=== PATIENT | male | born 1940 | race Caucasian/White ===

== ENCOUNTER → 2016-10-22 | Outpatient (CLI) | payer OTHER ==
[~2016-10-22] MED LIST: ATOR-24 PO; BIOT1CAP3 PO; CARV6.252 PO; CLOP1TAB15 PO; DUTA0.5C PO; LISI2.5T5 PO; NTRGSL/4 UT
[2016-10-22 14:59] LABS: THYROID STIMULATING HORMONE 1.01 uIu/ml (0.300-4.500)
== END | disposition home or self-care (01) ==
LOC: C.LAB1850 13:29
PROVIDERS: ATTEND Physician Assistant Medical
DX: I25.5 Ischemic cardiomyopathy (principal)

== ENCOUNTER → 2017-04-02 | Outpatient (CLI) | payer OTHER ==
[2017-04-02 12:15] LABS: BASO % 0.4 %; BASO ABS # 0.02 K/uL (0-0.2); COMPLETE YES; EOS % 3.2 %; HEMATOCRIT 40.3 % (42-52); LYMPH % 43.4 %; LYMPH ABS # 2.16 K/uL (1.2-3.4); MEAN CELL VOLUME 92.4 fL (80-100); MEAN CORPUSCULAR HGB CONC 33.5 g/dl (32-36); MEAN PLATELET VOLUME 9.9 fL (7.4-10.4); MONO % 13.1 %; NEUT % 39.9 %; PLATELET COUNT 104 K/uL (130-400); RED BLOOD COUNT 4.36 M/uL (4.7-6.1); WHITE BLOOD COUNT 4.98 K/uL (4.8-10.8)
[2017-04-02 12:40] LABS: ALT/SGPT 11 U/L (12-78); AST/SGOT 25 U/L (15-37); BLOOD UREA NITROGEN 16 mg/dl (7-18); BUN/CREATININE RATIO 14.4 (10-20); CALCIUM 8.8 mg/dl (8.5-10.1); CARBON DIOXIDE 28 mmol/L (21-32); CHLORIDE 106 mmol/L (98-107); CHOLESTEROL 139 mg/dl (0-200); GLUCOSE 91 mg/dl (70-99); POTASSIUM 4.1 mmol/L (3.5-5.1); SODIUM 139 mmol/L (136-145); TRIGLYCERIDES 91 mg/dl (0-150); VERY LOW DENSITY LIPOPROT CALC 18 mg/dl
[2017-04-02 12:51] LABS: ALB/GLOB RATIO 1.1 (0.9-2); ALKALINE PHOSPHATASE 56 U/L (45-117); HDL CHOLESTEROL 71 mg/dl; LDL CHOLESTEROL CALCULATED 50 mg/dl
== END | disposition home or self-care (01) ==
LOC: C.LABPVFM 07:40
PROVIDERS: ATTEND Family Medicine
DX: E78.5 Hyperlipidemia, unspecified (principal); I49.9 Cardiac arrhythmia, unspecified; C91.10 Chronic lymphocytic leukemia of B-cell type not having achieved remission

== ENCOUNTER → 2017-09-14 | Outpatient (CLI) | payer OTHER ==
[2017-09-14 12:21] LABS: BASO % 0.4 %; BASO ABS # 0.02 K/uL (0-0.2); EOS % 3.3 %; EOS ABS # 0.16 K/uL (0-0.5); HEMATOCRIT 38.6 % (42-52); HEMOGLOBIN 13.2 g/dL (14.0-18.0); IG# 0.01 K/uL (0.00-0.02); LYMPH % 49.7 %; LYMPH ABS # 2.43 K/uL (1.2-3.4); MEAN CORPUSCULAR HEMOGLOBIN 31.1 pg (25-34); MEAN CORPUSCULAR HGB CONC 34.2 g/dl (32-36); MEAN PLATELET VOLUME 10.1 fL (7.4-10.4); MONO % 9.6 %; MONO ABS # 0.47 K/uL (0.11-0.59); NEUT % 36.8 %; PLATELET COUNT 108 K/uL (130-400); RED CELL DISTRIBUTION WIDTH CV 14.3 % (11.5-14.5); RED CELL DISTRIBUTION WIDTH SD 47.9 fL (36.4-46.3); WHITE BLOOD COUNT 4.89 K/uL (4.8-10.8)
[2017-09-14 13:06] LABS: ALBUMIN 3.5 gm/dl (3.4-5.0); ALT/SGPT 11 U/L (12-78); BLOOD UREA NITROGEN 17 mg/dl (7-18); CALCIUM 8.6 mg/dl (8.5-10.1); CARBON DIOXIDE 31 mmol/L (21-32); CREATININE 1.09 mg/dl (0.60-1.40); GLUCOSE 95 mg/dl (70-99); POTASSIUM 4.3 mmol/L (3.5-5.1); SODIUM 139 mmol/L (136-145)
[2017-09-14 13:12] LABS: ALKALINE PHOSPHATASE 59 U/L (45-117); AST/SGOT 21 U/L (15-37); CHOLESTEROL 121 mg/dl (0-200); LDL CHOLESTEROL CALCULATED 41 mg/dl; TOTAL PROTEIN 6.8 gm/dl (6.4-8.2)
== END | disposition home or self-care (01) ==
LOC: C.LABPVFM 07:48
PROVIDERS: ATTEND Family Medicine
DX: E78.5 Hyperlipidemia, unspecified (principal); Z95.810 Presence of automatic (implantable) cardiac defibrillator; I25.5 Ischemic cardiomyopathy; C91.10 Chronic lymphocytic leukemia of B-cell type not having achieved remission

== ENCOUNTER → 2018-03-09 | Outpatient (CLI) | payer OTHER ==
[~2018-03-09] MED LIST changes: +LISI-1116 PO; -LISI2.5T5 PO
[2018-03-09 12:54] LABS: BASO % 0.5 %; BASO ABS # 0.02 K/uL (0-0.2); EOS % 5.1 %; EOS ABS # 0.19 K/uL (0-0.5); HEMATOCRIT 39.3 % (42-52); HEMOGLOBIN 13.1 g/dL (14.0-18.0); IG# 0.01 K/uL (0.00-0.02); LYMPH % 42.7 %; MEAN CELL VOLUME 92.9 fL (80-100); MEAN CORPUSCULAR HGB CONC 33.3 g/dl (32-36); MONO % 10.9 %; MONO ABS # 0.41 K/uL (0.11-0.59); NEUT % 40.5 %; NEUT ABS # 1.52 K/uL (1.4-6.5); PLATELET COUNT 107 K/uL (130-400); RED CELL DISTRIBUTION WIDTH CV 14.3 % (11.5-14.5); RED CELL DISTRIBUTION WIDTH SD 48.5 fL (36.4-46.3); WHITE BLOOD COUNT 3.75 K/uL (4.8-10.8)
== END | disposition home or self-care (01) ==
LOC: C.LABPVFM 08:44
PROVIDERS: ATTEND Family Medicine
DX: E78.5 Hyperlipidemia, unspecified (principal); I47.2 Ventricular tachycardia; C91.90 Lymphoid leukemia, unspecified not having achieved remission

== ENCOUNTER 2023-10-28 12:13 | Observation (INO) ==
--- NOTE | 2023-10-28 13:24 | Emergency Department Note ---
Impression & Plan Exertional chest pain, Cardiomyopathy, ischemic, Coronavirus infection, unspecified ED Provider Note NAME: RENETTA Gilmore WINTER AGE: 83 SEX: M : 1940 ARRIVES VIA: Walk-In INFORMANT: Patient ED PROVIDER(S): Bear Herron MD CHIEF COMPLAINT: Chest pain PLAN: Disposition: Admit MEDICAL DECISION MAKING: The patient is a pleasant 83-year-old gentleman with a past medical history of CAD with history of PCI, ischemic cardiomyopathy status post AICD, CLL, paroxysmal atrial fibrillation on Eliquis who presents to the emergency department via walk-in accompanied by his daughter for evaluation of exertional chest pressure and shortness of breath which she reports has been ongoing for over the past month. The patient was seen by his primary care doctor today for evaluation of cough congestion and some mild shortness of breath. He had an EKG performed which demonstrated atrial paced rhythm and there was concern for ST depressions laterally in the setting of his report of exertional chest pressure though he "has no pain". 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 He denies any chest pressure or pain at this time. He reports he did have slight increase in weight of 2 pounds several days ago and did take a dose of his Lasix which he is prescribed to use as needed based on weight gain. Otherwise he reports his weight has been fairly stable. He denies palpitations, racing heart, or ICD shocks. On evaluation patient is no acute distress, afebrile with stable vital signs. He appears euvolemic. EKG demonstrates atrial paced rhythm without overt acute ischemia. Chest x-ray demonstrates mild interstitial pulmonary edema with trace bilateral pleural effusions. There is small patchy bibasilar densities that are likely atelectasis. WBC 4.7K, similar to prior. H/H similar to prior. Platelets 76 K, similar to prior in the setting of history of CLL. Chemistry without metabolic acidosis. LFTs unremarkable. Positive troponin 21.8, marginally above upper limit of normal. Procalcitonin ordered to further characterize x-ray findings and is pending. Respiratory viral panel shows BioFire was positive for coronavirus NL 63. Patient was given full dose aspirin though denies chest pain at this time. The patient and his daughter agree with plan for admission for further assessment given his exertional chest pain and cardiac history. Case was discussed with Dr. Hastings [facility] hospitalist, who will evaluate the patient for admission. Further management per admitting team. Triage Nursing notes reviewed and agree them. Prior/external medical records reviewed Vital Signs: reviewed Differential diagnosis: Cardiac ischemia, aortic dissection, pulmonary embolism, pneumothorax, pneumonia, pericarditis, myocarditis, esophageal rupture, GERD, cholecystitis, pancreatitis, musculoskeletal, as well as other pathologies. ER treatment provided: See below. Diagnostics interpreted by me: ECG: Atrial paced rhythm, 74 bpm, nonspecific anterior ventricular conduction block, LVH, no overt ST elevation or depression, QTc 512, QRS 150 Cardiac Monitoring: An order for continuous cardiac monitoring was placed and demonstrated Atrial paced rhythm, 74 bpm, no ectopy. Laboratory studies: See below Imaging studies: See below Consultation(s): Case was discussed with Dr. Hastings, [facility] hospitalist, who will evaluate the patient for admission. HPI: The patient is a pleasant 83-year-old gentleman with a past medical history of CAD with history of PCI, ischemic cardiomyopathy status post AICD, CLL, paroxysmal atrial fibrillation on Eliquis who presents to the emergency department via walk-in accompanied by his daughter for evaluation of exertional chest pressure and shortness of breath which she reports has been ongoing for over the past month. The patient was seen by his primary care doctor today for evaluation of cough congestion and some mild shortness of breath. He had an EKG performed which demonstrated atrial paced rhythm and there was concern for ST depressions laterally in the setting of his report of exertional chest pressure though he "has no pain". 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 He denies any chest pressure or pain at this time. He reports he did have slight increase in weight of 2 pounds several days ago and did take a dose of his Lasix which he is prescribed to use as needed based on weight gain. Otherwise he reports his weight has been fairly stable. He denies palpitations, racing heart, or ICD shocks. ROS: See above HPI for pertinent positives & negatives. A total of 10 systems reviewed and were otherwise negative. VITALS:See Below PHYSICAL EXAMINATION: GENERAL: Awake, alert, well-appearing, in no distress HENT: Normocephalic, atraumatic. Oropharynx unremarkable. EYES: Normal conjunctiva. Sclera non-icteric. NECK: Supple. No nuchal rigidity. FROM. No JVD. RESPIRATORY: Clear to auscultation. CARDIAC: Regular rate, normal rhythm. Extremities warm and well perfused. Pulses equal. ABDOMEN: Soft, non-distended. No tenderness to palpation. No rebound or guarding. No masses. MUSCULOSKELETAL: Chest examination reveals no tenderness. The back is symmetrical on inspection without obvious abnormality. There is no CVA tenderness to palpation. No joint edema. LOWER EXTREMITIES: Calves are equal size bilaterally and non-tender. No edema. No discoloration. NEURO: Normal sensorium. No sensory or motor deficits noted. SKIN: No rash or jaundice noted. Bear Herron MD Past Med/Surg History Medical History Pleural effusion Multiple fractures of ribs of both sides Thoracic compression fracture Hernia Acute chest pain Near syncope Surgical History H/O rotator cuff surgery Previous back surgery Family History Brother Myocardial infarction Denies family history of Ovarian cancer Prostate cancer Breast cancer Colorectal cancer Social History Smoking Status: Never smoker Second Hand Exposure: No; Do You Dip or Chew Tobacco: No; Hx Alcohol Use: Yes Alcohol type: hard liquor Alcohol Intake Frequency: Monthly or Less Hx Substance Use: No Preferred Language: Armenian Communication Ability: Effective Visual Impairment: Limited Hearing Ability: Use of Hearing Aid Data Warehousing Specialist Required: No Beliefs That Will Affect Care: None marital status: / Current Living Situation: Alone current occupational status: retired How many Children do You have: 2 Feels Safe at Home: Yes Safety Concerns: Feels Safe At This Time Childhood Exposure to Second-Hand Smoke: Yes Diet: regular caffeine: Yes during the past year weight has: remained stable Dental Care, Regularly: Yes Physical Activity Frequency: Daily Seatbelt Use: sometimes Sunscreen Use: No Assistive Devices: Denture - Upper, Denture - Lower, Glasses and Hearing Aid - Bilateral Allergies Allergies Allergy/AdvReac Type Severity Reaction Status Date / Time lisinopril AdvReac Intermediate HYPOTENSION Verified 10/28/23 14:25 metoprolol AdvReac Intermediate HYPOTENSION Verified 10/28/23 14:25 Home Meds Home Medications Medication Instructions Recorded Confirmed biotin 5 mg tablet 5 mg PO DAILY 07/19/19 10/28/23 cholecalciferol (vitamin D3) 1,250 50,000 unit PO WK 10/28/23 10/28/23 mcg (50,000 unit) capsule Previous Rx's Medication Instructions Recorded nitroglycerin 0.4 mg sublingual 0.4 mg sublingual Q5M PRN Chest 09/04/20 tablet Pain #20 tabs potassium chloride 20 mEq 20 meq PO DAILY Take with 11/17/22 tablet,extended release furosemide #90 tabs furosemide 40 mg tablet 40 mg PO DAILY weight gain or 11/19/22 swelling #90 tabs metoprolol succinate 25 mg 25 mg PO DAILY #90 tabs 02/23/23 tablet,extended release 24 hr ferrous sulfate 325 mg (65 mg 325 mg PO DAILY #30 tabs 06/16/23 iron) tablet tamsulosin 0.4 mg capsule 0.4 mg PO HS #90 caps 07/21/23 atorvastatin 40 mg tablet 40 mg PO QPM #90 tabs 08/20/23 amiodarone 200 mg tablet 200 mg PO DAILY #90 tabs 09/29/23 apixaban 5 mg tablet (Eliquis) 5 mg PO Q12H #180 tabs 10/28/23 clopidogrel 75 mg tablet 75 mg PO QAM #90 tabs 10/28/23 Results & Data (ED) Vital Signs Vital Signs - 24 hr 10/28/23 12:44 10/28/23 14:00 10/28/23 14:00 Temperature 36.9 C Temperature Source Temporal Artery Scan Pulse Rate 73 Pulse Rate [Apical] 63 Pulse Rhythm [Apical] Pulse Strength [Apical] Respiratory Rate 18 21 Respiratory Effort / Characteristics Non-Labored Spontaneous Respiratory Depth Normal Respiratory Pattern Regular Blood Pressure 110/72 Blood Pressure [Left Arm] 126/92 Blood Pressure Mean 84 Blood Pressure Mean [Left Arm] 103 Blood Pressure Position Sitting Blood Pressure Position [Left Arm] Pulse Oximetry 95 96 Oxygen Delivery Method Room Air Room Air Room Air Sepsis Recent Fever Within 48 Hours No Sepsis New/Unexplained Change in Mental Status N/A Sepsis Action Taken by Nursing No Action Required 10/28/23 14:33 10/28/23 14:48 10/28/23 15:00 Temperature 36.5 C Temperature Source Oral Pulse Rate 61 Pulse Rate [Apical] 67 Pulse Rhythm [Apical] Regular Pulse Strength [Apical] Normal Respiratory Rate 18 Respiratory Effort / Characteristics Non-Labored Spontaneous Respiratory Depth Normal Respiratory Pattern Regular Blood Pressure Blood Pressure [Left Arm] 121/81 Blood Pressure Mean Blood Pressure Mean [Left Arm] 94 Blood Pressure Position Blood Pressure Position [Left Arm] Sitting Pulse Oximetry 96 96 Oxygen Delivery Method Room Air Room Air Sepsis Recent Fever Within 48 Hours Sepsis New/Unexplained Change in Mental Status Sepsis Action Taken by Nursing 10/28/23 15:00 Temperature Temperature Source Pulse Rate Pulse Rate [Apical] 66 Pulse Rhythm [Apical] Pulse Strength [Apical] Respiratory Rate 19 Respiratory Effort / Characteristics Non-Labored Spontaneous Respiratory Depth Normal Respiratory Pattern Regular Blood Pressure Blood Pressure [Left Arm] 120/84 Blood Pressure Mean Blood Pressure Mean [Left Arm] 96 Blood Pressure Position Blood Pressure Position [Left Arm] Semi-fowlers Pulse Oximetry 96 Oxygen Delivery Method Room Air Sepsis Recent Fever Within 48 Hours Sepsis New/Unexplained Change in Mental Status Sepsis Action Taken by Nursing Laboratory Data Attestation: I reviewed the patient's lab results. 10/28/23 13:00 10/28/23 13:00 Lab Results 10/28/23 10/28/23 10/28/23 Range/Units 13:00 14:03 15:34 WBC 4.77 L (4.8-10.8) K/ul RBC 4.10 L (4.70-6.10) M/uL Hgb 12.4 L (14.0-18.0) g/dl Hct 38.3 L (42.0-52.0) % MCV 93.4 (80.0-100.0) fL MCH 30.2 (25.0-34.0) pg MCHC 32.4 (32.0-36.0) g/dL RDW Std Deviation 58.3 H (36.4-46.3) fL RDW Coeff of Arie 16.7 H (11.5-14.5) % Plt Count 76 L (130-400) K/uL MPV 10.4 (9.4-12.4) fL Immature Gran % (Auto) 0.2 % Neut % (Auto) 50.4 % Lymph % (Auto) 32.9 % [place] % (Auto) 15.1 % Eos % (Auto) 1.0 % Baso % (Auto) 0.4 % Neut # (Auto) 2.40 (1.40-6.50) K/uL Lymph # (Auto) 1.57 (1.20-3.40) K/uL [place] # (Auto) 0.72 H (0.11-0.59) K/uL Eos # (Auto) 0.05 (0.00-0.50) K/uL Baso # (Auto) 0.02 (0.00-0.20) K/uL Immature Gran # (Auto) 0.01 (0.01-0.20) K/uL PT 13.0 H (9.0-12.0) Seconds INR 1.2 H (0.9-1.1) APTT 33 H (21-31) Seconds PTT Ratio 1.2 Sodium 136 (136-145) mmol/L Potassium 4.3 (3.5-5.1) mmol/L Chloride 103 (98-107) mmol/L Carbon Dioxide 27 (21-32) mmol/L Anion Gap 6 (3-11) BUN 29 H (6-23) mg/dl Creatinine 1.04 (0.6-1.4) mg/dl Est Cr Clr Drug Dosing 47.2 ml/min Est GFR ( Amer) 75.5 ml/min Est GFR (Non-Af Amer) 65.2 ml/min BUN/Creatinine Ratio 27.9 H (10-20) Glucose 97 (70-99(Fasting)) mg/dl Calcium 9.1 (8.6-10.3) mg/dl Phosphorus 3.4 (2.5-4.9) mg/dl Magnesium 2.1 (1.7-2.4) mg/dl Total Bilirubin 1.5 H (0.2-1.0) mg/dl AST 38 (13-39) U/L ALT 8 (7-52) U/L Alkaline Phosphatase 56 (34-104) U/L Troponin I High Sens 21.8 H 18.2 (0-20) pg/ml Total Protein 7.1 (6.0-8.3) gm/dl Albumin 4.1 (3.4-5.0) gm/dl Globulin 3.0 (2.5-4.0) gm/dl Albumin/Globulin Ratio 1.4 (0.9-2) Procalcitonin < 0.02 (0-0.5) ng/ml TSH 3.339 (0.300-4.500) uIu/ml Adenovirus (PCR) Not Detected (NotDetected) B. pertussis DNA (PCR) Not Detected (NotDetected) B.parapertussis DNA PCR Not Detected (NotDetected) C. pneumoniae DNA (PCR) Not Detected (NotDetected) Coronavirus OC43 (PCR) Not Detected (NotDetected) Coronavirus HKU1 (PCR) Not Detected (NotDetected) Coronavirus 229E (PCR) Not Detected (NotDetected) SARS-CoV-2 (PCR) Not Detected (NotDetected) Coronavirus NL63 (PCR) DETECTED A (NotDetected) Human Metapneumovir PCR Not Detected (NotDetected) Influenza Type A (PCR) Not Detected (NotDetected) Influenza Type B (PCR) Not Detected (NotDetected) M. pneumoniae (PCR) Not Detected (NotDetected) Parainfluenza 1 (PCR) Not Detected (NotDetected) Parainfluenza 2 (PCR) Not Detected (NotDetected) Parainfluenza 3 (PCR) Not Detected (NotDetected) Parainfluenza 4 (PCR) Not Detected (NotDetected) RSV (PCR) Not Detected (NotDetected) Entero/Rhino (PCR) Not Detected (NotDetected) Administered Medications Apixaban (Apixaban 5 Mg Tablet) 5 mg PO BID KODY Stop: 11/27/23 20:59 Last Admin: 10/28/23 20:34 Dose: 5 mg Documented By: BETHANY Atorvastatin Calcium (Atorvastatin 40 Mg Tab) 40 mg PO QPM KODY Stop: 11/27/23 20:59 Last Admin: 10/28/23 20:34 Dose: 40 mg Documented By: BETHANY Tamsulosin HCl (Tamsulosin Hcl 0.4 Mg Cap) 0.4 mg PO HS KODY Stop: 11/27/23 20:59 Last Admin: 10/28/23 20:34 Dose: 0.4 mg Documented By: BETHANY Discontinued Medications Aspirin (Aspirin Chew 324 Mg) 324 mg PO NOW STA Stop: 10/28/23 14:48 Last Admin: 10/28/23 15:11 Dose: 324 mg Documented By: CELESTE Furosemide (Furosemide 40 Mg/4 Ml Vial) 40 mg IV ONE ONE Stop: 10/28/23 19:20 Last Admin: 10/28/23 20:35 Dose: 40 mg Documented By: AKCatarino Imaging Data Radiologist's Impression: Chest X-Ray 10/28/23 12:45 XR chest 1V portable HISTORY: Chest pain, nonspecific COMPARISON: Chest 01/22/2022. FINDINGS: No pneumothorax. Trace bilateral pleural effusions. The heart is enlarged. There is a left-sided pacemaker/defibrillator again noted. There is perihilar interstitial/vascular thickening consistent with mild pulmonary edema. There are patchy bibasilar densities. No acute fractures. IMPRESSION: 1. Cardiomegaly with mild interstitial pulmonary edema and trace bilateral pleural effusions. 2. Small patchy bibasilar densities are nonspecific and could represent atelectasis or a low-grade pneumonia ACT 112: Negative or not required by law. Electronically signed by: Steven Bradford M.D. 10/28/2023 2:08 PM Discharge Plan Visit Data Chief Complaint: Cardiac Assessment Stated Complaint: REF BY DOC ED Provider: Bear Herron Discharge Problem: Exertional chest pain, Cardiomyopathy, ischemic, Coronavirus infection, unspecified Patient Disposition: Admitted As Inpatient Discharge Instructions Interventions: ED Discharge Assessment Last Done: 10/28/23 16:45
[2023-10-28 13:27] LABS: Basophils # (auto) 0.02 K/uL (0.00-0.20); Basophils % (auto) 0.4 %; Eosinophils # (auto) 0.05 K/uL (0.00-0.50); Hematocrit (blood only) 38.3 % (42.0-52.0); Hemoglobin 12.4 g/dl (14.0-18.0); Immature Granulocytes # (auto) 0.01 K/uL (0.01-0.20); Immature Granulocytes % (auto) 0.2 %; Lymphocytes # (auto) 1.57 K/uL (1.20-3.40); Lymphocytes % (auto) 32.9 %; Mean Corpuscular Hemoglobin 30.2 pg (25.0-34.0); Mean Corpuscular Hgb Conc 32.4 g/dL (32.0-36.0); Mean Corpuscular Volume 93.4 fL (80.0-100.0); Mean Platelet Volume 10.4 fL (9.4-12.4); Monocytes # (auto) 0.72 K/uL (0.11-0.59); Monocytes % (auto) 15.1 %; Neutrophils % (auto) 50.4 %; Platelet Count 76 K/uL (130-400); RDW Coefficient of Variation 16.7 % (11.5-14.5); RDW Standard Deviation 58.3 fL (36.4-46.3); White Blood Count 4.77 K/ul (4.8-10.8)
[2023-10-28 13:47] LABS: Albumin Globulin Ratio 1.4 (0.9-2); Albumin Level 4.1 gm/dl (3.4-5.0); BUN Creatinine Ratio 27.9 (10-20); Bilirubin,Total 1.5 mg/dl (0.2-1.0); Calcium 9.1 mg/dl (8.6-10.3); Creatinine Clr Calc Pharmacy 47.2 ml/min; Est GFR (African American) 75.5 ml/min; Est GFR (Non-African American) 65.2 ml/min; Potassium 4.3 mmol/L (3.5-5.1); Total Protein 7.1 gm/dl (6.0-8.3)
[2023-10-28 13:51] LABS: Troponin I High Sensitivity 21.8 pg/ml (0-20)
[2023-10-28 13:54] LABS: INR 1.2 (0.9-1.1); Partial Thromboplastin Ratio 1.2; Partial Thromboplastin Time 33 Seconds (21-31)
--- NOTE | 2023-10-28 14:10 | XRay Report ---
XR chest 1V portable HISTORY: Chest pain, nonspecific COMPARISON: Chest 01/22/2022. FINDINGS: No pneumothorax. Trace bilateral pleural effusions. The heart is enlarged. There is a left- sided pacemaker/defibrillator again noted. There is perihilar interstitial/vascular thickening consis tent with mild pulmonary edema. There are patchy bibasilar densities. No acute fractures. IMPRESSION: 1. Cardiomegaly with mild interstitial pulmonary edema and trace bilateral pleural effusions. 2. Small patchy bibasilar densities are nonspecific and could represent atelectasis or a low-grade pn eumonia ACT 112: Negative or not required by law. Electronically signed by: Steven Bradford M.D. 10/28/2023 2:08 PM
[2023-10-28] MEDS: ASPIRIN CHEW 324 MG PO STA (15:11)
[2023-10-28 15:17] LABS: Adenovirus PCR Not Detected (NotDetected); Bordetella parapertussis PCR Not Detected (NotDetected); Bordetella pertussis PCR Not Detected (NotDetected); Chlamydia pneumoniae PCR Not Detected (NotDetected); Coronavirus 229E PCR Not Detected (NotDetected); Coronavirus CoV-2 (COVID19)PCR Not Detected (NotDetected); Coronavirus HKU1 PCR Not Detected (NotDetected); Coronavirus NL63 PCR DETECTED (NotDetected); Coronavirus OC43PCR Not Detected (NotDetected); Human Metapneumovirus PCR Not Detected (NotDetected); Influenza A PCR Not Detected (NotDetected); Influenza B PCR Not Detected (NotDetected); Mycoplasma pneumoniae PCR Not Detected (NotDetected); Parainfluenza Virus 1 PCR Not Detected (NotDetected); Parainfluenza Virus 2 PCR Not Detected (NotDetected); Parainfluenza Virus 3 PCR Not Detected (NotDetected); Parainfluenza Virus 4 PCR Not Detected (NotDetected); Respiratory Syncytial VirusPCR Not Detected (NotDetected); Rhinovirus/Enterovirus PCR Not Detected (NotDetected)
--- NOTE | 2023-10-28 15:41 | History & Physical Report ---
Date of Service October 28, 2023 Assessment & Plan (1) Chest pain: Plan: Exertional dyspnea, chest discomfort. History of CAD, PCI to LAD, ischemic cardiomyopathy EF 25-30%, history of V-fib s/p dual-chamber pacemaker Patient likely with some dyspnea and worsening symptoms in the setting of non- COVID coronavirus; however his exertional chest pain and shortness of breath have been going on for at least a month and also precede his viral infection. Patient does have high risk cardiac history and has had associated chest discomfort. No ST changes seen on EKG in the ER, troponin is mildly elevated. Troponin trended. Pulmonary congestion/edema seen on x-ray--> Lasix 40 mg IV daily -Given 1 month of increased exertional anginal symptoms and high risk history which preceded his viral infection will consult cardiology for evaluation ? Stress test. Has known residual distal dz. He has had no symptoms at rest and is pain-free on admission. Symptoms also increased with evidence of mild congestive overload. Eliquis continued. If recurrent angina while inpatient hold Eliquis and transition to heparin gtt. Optimize potassium 4.0, magnesium 2.0. Continue metoprolol, Plavix, amiodarone (2) Cardiomyopathy, ischemic: (3) CAD S/P percutaneous coronary angioplasty: (4) Paroxysmal atrial fibrillation: (5) Paroxysmal ventricular tachycardia: (6) BPH (benign prostatic hyperplasia): (7) Acute on chronic HFrEF (heart failure with reduced ejection fraction): Plan Chronic stable issues CLL: With chronic thrombocytopenia. Stable, CBC daily. No blasts BPH: Continue Flomax DVT prophylaxis: Anticoagulated Disposition: Medical telemetry CODE STATUS: Diet: Heart healthy History of Present Illness Primary Care Provider: DO Bi Ruiz is an 83-year-old male with a past medical history of stable CLL followed as outpatient, CAD with history of OK with PCI to LAD x 3, staged LAD LATISHA 2013 and ischemic cardiomyopathy EF 25-30%, history of VT s/p dual-chamber AICD 2014, hypertension, hyperlipidemia, paroxysmal A-fib/a flutter on Eliquis who presents to the ER for evaluation of dyspnea with minimal exertion and associated chest discomfort, intermittent hypotension, and who was seen as an outpatient by his PCP and was noted to have new anterior lateral ST depressions. Due to his complex high risk cardiac history, ST changes, and worsening exertional angina was recommended for ER evaluation of chest pain. Per ER: While in the ER he received full dose aspirin. High-sensitivity troponin 21.8, 2-hour repeat pending. Bio fire is positive for non-COVID coronavirus. Chest x-ray shows mild interstitial pulmonary edema with trace bilateral pleural effusions and nonspecific patchy bibasilar densities. He does not have a leukocytosis, procalcitonin is pending. EKG on admission: Atrial paced. Lateral ST depressions seen on outpatient EKG have improved on repeat EKG in the ER. 1 month of exertional chest pain occuring prior than acute worsening of sx likely 2/2 bustamante. Per Pt: 2 days ago he also got sore throat and congestion so was gargling with salt water. Shortness of breath seemed to be increase, and 'tired as the dickens' When he exerts himself gets pain in his chest strait up into both sides of his neck. Overall the intensity of the chest pain has stayed the same when it occurs around 12/27, but he cannot walk from the bedroom to the kitchen sink ~ 25 steps total before it comes out and limits him. Seems to go away within 3-4 minutes with rest. Denies any chest pain at rest. Endorses some mild icnreased leg swelling just today. Endorses orthopnea for the last month which was not present 2 months ago Last took lasix 3 days ago, only takes as needed for weight gain./ Medical History: Reviewed Medications: Reviewed Surgical History: Reviewed Family history: Reviewed Allergies: Reviewed Social History: Deneis tobacco use. 1 drink monthly at most of ETOH. Code Status: DNR/DNI Allergies Allergy/AdvReac Type Severity Reaction Status Date / Time lisinopril AdvReac Intermediate HYPOTENSION Verified 10/28/23 14:25 metoprolol AdvReac Intermediate HYPOTENSION Verified 10/28/23 14:25 Home Medications Medication Instructions Recorded Confirmed Type biotin 5 mg tablet 5 mg PO DAILY 07/19/19 10/28/23 History nitroglycerin 0.4 mg sublingual 0.4 mg sublingual Q5M PRN Chest 09/04/2010/27 Rx tablet Pain #20 tabs potassium chloride 20 mEq 20 meq PO DAILY Take with 11/17/22 10/28/23 Rx tablet,extended release furosemide #90 tabs furosemide 40 mg tablet 40 mg PO DAILY weight gain or 11/19/22 10/28/23 Rx swelling #90 tabs metoprolol succinate 25 mg 25 mg PO DAILY #90 tabs 02/23/23 10/28/23 Rx tablet,extended release 24 hr ferrous sulfate 325 mg (65 mg 325 mg PO DAILY #30 tabs 06/16/23 10/28/23 Rx iron) tablet tamsulosin 0.4 mg capsule 0.4 mg PO HS #90 caps 07/21/23 10/28/23 Rx atorvastatin 40 mg tablet 40 mg PO QPM #90 tabs 08/20/23 10/28/23 Rx amiodarone 200 mg tablet 200 mg PO DAILY #90 tabs 09/29/23 10/28/23 Rx apixaban 5 mg tablet (Eliquis) 5 mg PO Q12H #180 tabs 10/28/23 10/28/23 Rx cholecalciferol (vitamin D3) 1,250 50,000 unit PO WK 10/28/23 10/28/23 History mcg (50,000 unit) capsule clopidogrel 75 mg tablet 75 mg PO QAM #90 tabs 10/28/23 10/28/23 Rx Past Med/Surg History Medical History Pleural effusion Multiple fractures of ribs of both sides Thoracic compression fracture Hernia Acute chest pain Near syncope Surgical History H/O rotator cuff surgery Previous back surgery Family History Brother Myocardial infarction Denies family history of Ovarian cancer Prostate cancer Breast cancer Colorectal cancer Social History Smoking Status: Never smoker Second Hand Exposure: No; Do You Dip or Chew Tobacco: No; Hx Alcohol Use: Yes Alcohol type: hard liquor Alcohol Intake Frequency: Monthly or Less Hx Substance Use: No Preferred Language: Georgian Communication Ability: Effective Visual Impairment: Limited Hearing Ability: Use of Hearing Aid Assistant Inventory Manager Required: No Beliefs That Will Affect Care: None marital status: / Current Living Situation: Alone current occupational status: retired How many Children do You have: 2 Feels Safe at Home: Yes Childhood Exposure to Second-Hand Smoke: Yes Diet: regular caffeine: Yes during the past year weight has: remained stable Dental Care, Regularly: Yes Physical Activity Frequency: Daily Seatbelt Use: sometimes Sunscreen Use: No Assistive Devices: Glasses and Hearing Aid - Bilateral Physical Exam Physical Exam: General: A&Ox3. NAD. Cooperative. HEENT: Atraumatic, normocephalic. Pulm: CTAB A&P. -wheezes, -rales, -rhonchi. Symmetrical chest rise. No increased work of breathing. No respiratory distress. Cardiac: RRR, +sm. Radial pulses intact and symmetrical. Mild JVD with HRG to the angle of the mandible Abdominal: Nontender, nondistended, soft. BS present. Ext: Bilateral 2-3+ pitting edema. Results & Data Results & Data Vital Signs (Past 12 Hours) Vital Signs Temp Pulse Pulse Resp BP BP Pulse Ox 10/28/23 15:00 66 19 120/84 96 10/28/23 15:00 96 10/28/23 14:33 61 10/28/23 14:00 63 21 126/92 96 10/28/23 14:00 10/28/23 12:44 36.9 C 73 18 110/72 95 O2 Del Method 10/28/23 15:00 Room Air 10/28/23 15:00 Room Air 10/28/23 14:33 10/28/23 14:00 Room Air 10/28/23 14:00 Room Air 10/28/23 12:44 Room Air PG Care Time/CCT Total # of Minutes Spent Total Time Spent with Patient: Total time spent is greater than 50% in coordination of care (as documented) at patient's floor/unit and/or counseling patient: Coding Level of Care Code 10800 INT INP/OBS CARE 3/75MIN Diagnoses Chest pain R07.9 Cardiomyopathy, ischemic I25.5 CAD S/P percutaneous coronary angioplasty I25.10; Z98.61 Paroxysmal atrial fibrillation I48.0 Paroxysmal ventricular tachycardia I47.2 BPH (benign prostatic hyperplasia) N40.0 Acute on chronic HFrEF (heart failure with reduced ejection fraction) I50.23
[2023-10-28] MEDS ORDERED: NITROGLYCERIN SL 0.4 MG/TAB TAB SL PRN (19:19)
[2023-10-28 19:28] LABS: Magnesium 2.1 mg/dl (1.7-2.4)
[2023-10-28 19:33] LABS: Phosphorus 3.4 mg/dl (2.5-4.9)
[2023-10-28 20:04] LABS: Thyroid Stimulating Hormone 3.339 uIu/ml (0.300-4.500)
[2023-10-28] MEDS: APIXABAN 5 MG TABLET PO SCH (20:34)
[2023-10-28] MEDS: ATORVASTATIN 40 MG TAB PO SCH (20:34)
[2023-10-28] MEDS: TAMSULOSIN HCL 0.4 MG CAP PO SCH (20:34)
[2023-10-28] MEDS: FUROSEMIDE 40 MG/4 ML VIAL IV ONE (20:35)
[2023-10-29 06:56] LABS: Basophils # (auto) 0.03 K/uL (0.00-0.20); Basophils % (auto) 0.7 %; Eosinophils # (auto) 0.09 K/uL (0.00-0.50); Eosinophils % (auto) 2.1 %; Hematocrit (blood only) 32.3 % (42.0-52.0); Lymphocytes # (auto) 1.18 K/uL (1.20-3.40); Lymphocytes % (auto) 27.4 %; Mean Corpuscular Hemoglobin 30.6 pg (25.0-34.0); Mean Corpuscular Hgb Conc 34.1 g/dL (32.0-36.0); Mean Platelet Volume 10.7 fL (9.4-12.4); Monocytes % (auto) 13.9 %; Neutrophils # (auto) 2.41 K/uL (1.40-6.50); Neutrophils % (auto) 55.9 %; Platelet Count 67 K/uL (130-400); RDW Coefficient of Variation 16.5 % (11.5-14.5); RDW Standard Deviation 54.7 fL (36.4-46.3); Red Blood Count 3.59 M/uL (4.70-6.10); White Blood Count 4.31 K/ul (4.8-10.8)
[2023-10-29 07:12] LABS: BUN Creatinine Ratio 22.5 (10-20); Calcium 8.5 mg/dl (8.6-10.3); Creatinine Clr Calc Pharmacy 46.9 ml/min; Est GFR (African American) 69.8 ml/min; Est GFR (Non-African American) 60.2 ml/min; Potassium 4.2 mmol/L (3.5-5.1)
--- NOTE | 2023-10-29 08:38 | Hospitalist Progress Note ---
Date of Service October 29, 2023 Assessment & Plan (1) Chest pain: Plan: 83-year-old male who presents with exertional dyspnea, chest discomfort. History of CAD, PCI to LAD, ischemic cardiomyopathy HFrEF EF 25-30%, history of V-fib/tach s/p dual-chamber pacemaker Patient likely with some dyspnea and worsening symptoms in the setting of non- COVID coronavirus pneumonitis; also some signs of pulmonary vascular congestion on x-ray given Lasix in the emergency department. For coronavirus pneumonitis we are with supportive care at this time not requiring significant oxygen amounts exertional chest pain and shortness of breath have been going on for at least a month and also precede his viral infection. EKG is abnormal on presentation with prolonged AV conduction of his atrial paced rhythm mild troponin elevation suspected to be from demand ischemia however pretest probability with known coronary disease will likely prompt Lexiscan to be performed on 10/30/2023 Interrogation of pacemaker shows battery life at 3 months Eliquis continued. If recurrent angina while inpatient hold Eliquis and transition to heparin gtt. Optimize potassium 4.0, magnesium 2.0. Continue metoprolol, Plavix, amiodarone (2) Paroxysmal atrial fibrillation: Plan: Patient is in atrially paced rhythm on monitor with prolonged NH interval (3) BPH (benign prostatic hyperplasia): Plan: Chronic stable remains on Flomax Plan CLL: With chronic thrombocytopenia. Stable, CBC daily. No blasts DVT prophylaxis: Anticoagulated DNR DNI Admission and Anticipated Discharge Date Admission Date: October 28, 2023 Subjective Patient is improved from presentation however does relate that he was having some chest discomfort which radiated to his jaw. Not quite a pain or sharp in nature. Feels his respiratory status has improved somewhat since he has been admitted Daughter is at the bedside and updated Physical Exam Physical Exam: Awake alert and appropriate very pleasant gentleman Has regular cardiac rhythm with a systolic murmur No JVD is present does not appear volume overloaded Lungs are decreased at the bases but mostly clear without wheezes Results & Data Results & Data Vital Signs (Past 12 Hours) Vital Signs Temp Pulse Pulse Resp BP BP Pulse Ox 10/29/23 07:23 60 10/29/23 07:09 98.2 F 54 L 19 106/58 L 91 10/29/23 04:14 98.4 F 66 18 106/55 L 95 04/10/24 23:52 98.4 F 66 18 101/53 L 95 O2 Del Method 10/29/23 07:23 10/29/23 07:09 Room Air 10/29/23 04:14 Room Air 10/28/23 23:52 Room Air Laboratory Results Reviewed CBC Reviewed chemistry Reviewed troponin Discussed case with cardiology PG Care Time/CCT Total # of Minutes Spent Total Time Spent with Patient: Total time spent is greater than 50% in coordination of care (as documented) at patient's floor/unit and/or counseling patient: Coding Level of Care Code 42075 SUB INP/OBS CARE 3/50MIN Diagnoses Chest pain R07.9 Paroxysmal atrial fibrillation I48.0 BPH (benign prostatic hyperplasia) N40.0
[2023-10-29] MEDS: AMIODARONE 200 MG TAB PO SCH (09:22)
[2023-10-29] MEDS: CLOPIDOGREL BISULFATE 75 MG TAB PO SCH (09:22)
[2023-10-29] MEDS: METOPROLOL SUCC 25MG EXT REL TAB PO SCH (09:22)
[2023-10-29] MEDS: POTASSIUM CHLORIDE CRTAB 20 MEQ TABCR PO SCH (09:23)
[2023-10-29] MEDS: FERROUS SULFATE 325 MG TAB PO SCH (09:23)
[2023-10-29] MEDS: ACETAMINOPHEN 325 MG TAB PO PRN (09:28)
[2023-10-29] MEDS: FUROSEMIDE 40 MG/4 ML VIAL IV SCH (09:29)
--- NOTE | 2023-10-29 23:09 | Electrocardiogram Report ---
Test Reason : Blood Pressure : / mmHG Vent. Rate : 074 BPM Atrial Rate : 074 BPM P-R Int : 380 ms QRS Dur : 150 ms QT Int : 462 ms P-R-T Axes : 000 -01 225 degrees QTc Int : 512 ms Atrial-paced rhythm with prolonged AV conduction Non-specific intra-ventricular conduction block Minimal voltage criteria for LVH, may be normal variant ( [place] product ) Abnormal ECG When compared with ECG of 19-JUL-2019 05:36, QRS duration has increased T wave inversion now evident in Inferior leads QT has lengthened Confirmed by Juan Arnold ([id number]) on 10/29/2023 11:09:11 PM Referred By: Mihai Tello Confirmed By:Juan Arnold
[2023-10-30 06:06] LABS: Basophils # (auto) 0.01 K/uL (0.00-0.20); Basophils % (auto) 0.2 %; Eosinophils % (auto) 2.3 %; Hematocrit (blood only) 33.9 % (42.0-52.0); Hemoglobin 11.5 g/dl (14.0-18.0); Lymphocytes # (auto) 1.26 K/uL (1.20-3.40); Lymphocytes % (auto) 28.6 %; Mean Corpuscular Hemoglobin 30.3 pg (25.0-34.0); Mean Corpuscular Hgb Conc 33.9 g/dL (32.0-36.0); Mean Corpuscular Volume 89.4 fL (80.0-100.0); Monocytes # (auto) 0.93 K/uL (0.11-0.59); Monocytes % (auto) 21.1 %; Neutrophils % (auto) 47.8 %; Platelet Count 75 K/uL (130-400); RDW Coefficient of Variation 16.5 % (11.5-14.5); RDW Standard Deviation 53.9 fL (36.4-46.3); Red Blood Count 3.79 M/uL (4.70-6.10)
[2023-10-30 06:21] LABS: BUN Creatinine Ratio 24.3 (10-20); Calcium 8.7 mg/dl (8.6-10.3); Creatinine Clr Calc Pharmacy 46.9 ml/min; Est GFR (African American) 69.8 ml/min; Est GFR (Non-African American) 60.2 ml/min; Potassium 4.4 mmol/L (3.5-5.1)
[2023-10-30] MEDS ORDERED: REGADENOSON 0.4 MG/5 ML SYR IV ONE (07:38)
--- NOTE | 2023-10-30 12:01 | Discharge Summary ---
Date of Service October 30, 2023 Admission HPI Per Admitting Provider Bi is an 83-year-old male with a past medical history of stable CLL followed as outpatient, CAD with history of DE with PCI to LAD x 3, staged LAD LATISHA 2013 and ischemic cardiomyopathy EF 25-30%, history of VT s/p dual-chamber AICD 2014, hypertension, hyperlipidemia, paroxysmal A-fib/a flutter on Eliquis who presents to the ER for evaluation of dyspnea with minimal exertion and associated chest discomfort, intermittent hypotension, and who was seen as an outpatient by his PCP and was noted to have new anterior lateral ST depressions. Due to his complex high risk cardiac history, ST changes, and worsening e xertional angina was recommended for ER evaluation of chest pain. Per ER: While in the ER he received full dose aspirin. High-sensitivity troponin 21.8, 2-hour repeat pending. Bio fire is positive for non-COVID coronavirus. Chest x-ray shows mild interstitial pulmonary edema with trace bilateral pleural effusions and nonspecific patchy bibasilar densities. He does not have a leukocytosis, procalcitonin is pending. EKG on admission: Atrial paced. Lateral ST depressions seen on outpatient EKG have improved on repeat EKG in the ER. 1 month of exertional chest pain occuring prior than acute worsening of sx likely 2/2 bustamante. Per Pt: 2 days ago he also got sore throat and congestion so was gargling with salt water. Shortness of breath seemed to be increase, and 'tired as the dickens' When he exerts himself gets pain in his chest strait up into both sides of his neck. Overall the intensity of the chest pain has stayed the same when it occurs around 6/10, but he cannot walk from the bedroom to the kitchen sink ~ 25 steps total before it comes out and limits him. Seems to go away within 3-4 minutes with rest. Denies any chest pain at rest. Endorses some mild icnreased leg swelling just today. Endorses orthopnea for the last month which was not present 2 months ago Last took lasix 3 days ago, only takes as needed for weight gain./ Medical History: Reviewed Medications: Reviewed Surgical History: Reviewed Family history: Reviewed Allergies: Reviewed Social History: Deneis tobacco use. 1 drink monthly at most of ETOH. Code Status: DNR/DNI Principal Diagnosis Coronavirus pneumonitis not COVID-19 Chest pain with a negative Lexiscan nuclear stress test Heart failure reduced ejection fraction that has been stable Pacemaker interpretation with 3 months left on battery life Discharge Exam Awake alert and appropriate very pleasant gentleman Has regular cardiac rhythm with a systolic murmur No JVD is present does not appear volume overloaded Lungs are decreased at the bases but mostly clear without wheezes Discharge Data Allergies Allergy/AdvReac Type Severity Reaction Status Date / Time lisinopril AdvReac Intermediate HYPOTENSION Verified 10/28/23 14:25 metoprolol AdvReac Intermediate HYPOTENSION Verified 10/28/23 14:25 Consultations 10/28/23 14:47 ED Decision to Admit Stat Hospital Course (1) Chest pain: 83-year-old male who presents with exertional dyspnea, chest discomfort. History of CAD, PCI to LAD, ischemic cardiomyopathy HFrEF EF 25-30%, history of V-fib/tach s/p dual-chamber pacemaker Patient likely with some dyspnea and worsening symptoms in the setting of non- COVID coronavirus pneumonitis; also some signs of pulmonary vascular congestion on x-ray given Lasix on admission. For coronavirus pneumonitis we are with supportive care at this time not requiring significant oxygen amounts exertional chest pain and shortness of breath have been going on for at least a month and also precede his viral infection. Lexiscan to be performed on 10/30/[address] Arnold shows no area of reversible ischemia. Previous areas of scarring and reduced ejection fraction in the 20 to 25% range Patient has a history of ischemic cardiomyopathy he is currently on some guideline based medications but blood pressure limits additional medications to be used. Interrogation of pacemaker shows battery life at 3 months Eliquis continued. Continue metoprolol, Plavix, amiodarone, resume his daily Lasix at time of discharge Recommend follow-up Dr. Aceves to continue to optimize treatment for heart failure reduced ejection fraction and coordinate battery replacement for pacemaker (2) Paroxysmal atrial fibrillation: Patient is in atrially paced rhythm continues with rate controlling amiodarone and anticoagulation with Eliquis (3) BPH (benign prostatic hyperplasia): Chronic stable remains on Flomax Plan CLL: With chronic thrombocytopenia. Stable, CBC daily. No blasts DNR DNI Total Time Total Time Spent Total Time Spent (In Minutes): It required greater than 30 minutes to prepare this patient for discharge. Discharge Plan Discharge Items Patient Disposition: Home - Self-Care Reason For Visit: CHEST PAIN, CORONAVIRUS Discharge Diagnosis: bustamante virus pneumonitis, not covid 19 pacemaker battery nearing replacement time ischemic cardiomyopathy, HfrEF Activity: Per Instructions section Activity Comment: please gradually increase activity Non-emergency contact: Primary Care Provider and Data Center Architect Call non-emergency contact if: your symptoms worsen Follow-up/Referrals: Johny Aceves MD [Physician] - Mihai Tello DO [Primary Care Provider] - 11/05/23 10:00 am (With Maureen Adler NP) Diet: Heart Healthy Addtl Attending Provider Instructions: You should recover from your coronavirus lung infection with supportive care. Certainly using commonsense if you develop fevers chills or worsening shortness of breath please return to the emergency department for reevaluation With cardiac stress test there were no concerning signs of lack of blood flow to your heart. You did have previous injury and scarring from history of heart disease. It is recommended you follow-up with Dr. Aceves not only for your heart disease but also to discuss timing of your pacemaker battery exchange. Will be hopeful that you can follow-up with Dr. Aceves in the next 2 weeks to go over your hospital stay and also have further planning for your pacemaker battery exchange Pending Studies at Discharge: No Stand-Alone Forms: [facility] [employer], Smoking Cessation Medications and DC Order Prescriptions: Continued nitroglycerin 0.4 mg tablet, sublingual 0.4 mg sublingual Q5M PRN (Reason: Chest Pain) Qty: 20 2RF potassium chloride 20 mEq tablet extended release 20 meq PO DAILY Qty: 90 3RF furosemide 40 mg tablet 40 mg PO DAILY Qty: 90 3RF metoprolol succinate 25 mg tablet extended release 24 hr 25 mg PO DAILY Qty: 90 3RF tamsulosin 0.4 mg capsule 0.4 mg PO HS Qty: 90 3RF atorvastatin 40 mg tablet 40 mg PO QPM Qty: 90 3RF amiodarone 200 mg tablet 200 mg PO DAILY Qty: 90 3RF Eliquis 5 mg tablet 5 mg PO Q12H Qty: 180 3RF clopidogrel 75 mg tablet 75 mg PO QAM Qty: 90 3RF ferrous sulfate 325 mg (65 mg iron) tablet 325 mg PO DAILY Qty: 30 1RF biotin 5 mg tablet 5 mg PO DAILY cholecalciferol (vitamin D3) 1,250 mcg (50,000 unit) capsule 50,000 unit PO WK Discharge Orders: Discharge Order (Routine); Ordered 10/30/23 Ordered By: Thad Frias Admission Data Admit Date/Time: 10/28/23 15:43 Attending Provider: Thad Frias Admit Provider: Ross Hastings Primary Care Provider: Mihai Tello Other Providers: Ross Hastings Coding Level of Care Code 14437 INP/OBS DISCH >30 MIN Diagnoses Chest pain R07.9 Paroxysmal atrial fibrillation I48.0 BPH (benign prostatic hyperplasia) N40.0
--- NOTE | 2023-10-30 15:45 | Myocardial Perfusion Study ---
Date of Service October 30, 2023 Myocardial Perfusion Study [facility] Myocardial Perfusion Study Report Procedure: 1. Myocardial perfusion study performed in multiple views/images 2. Lexiscan pharmacologic stress ECG Indications: 1. Chest pressure and dyspnea on exertion 2. CAD Ordering provider: Dr. Frias Procedural details: For the stress portion of the study, Lexiscan 0.4 mg was intravenously administered followed by a saline flush. This was followed by 29.9 mCi of technetium 99m Cardiolite, injected at 9:50 AM on 10/30/2023. 30 minutes following the injection, imaging of the heart was performed in multiple projections. For the rest portion of the study, 10.4 mCi technetium 99m Cardiolite was injected intravenously at 7:30 AM on 10/30/2023. 1 hour following the injection, imaging of the heart was performed in the same projections. Lexiscan stress ECG: Resting ECG demonstrated: Atrial paced 64 bpm. IVCB. LVH. Maximum heart rate: 84 bpm Maximal, age-predicted heart rate: 62% Resting blood pressure: 119/79 mmHg Maximum blood pressure: 128/[address] changes: None Arrhythmia: None Symptoms: Nausea/dry heaving Findings: Rotating raw imaging demonstrated no significant lung uptake. There is no significant motion artifact. Heart size appeared enlarged. Myocardial perfusion demonstrated a large area of severely reduced uptake involving the apex, base to apical septum, base to apical inferoseptum, and moderately reduced uptake involving the basal to apical inferior wall. There was mildly reduced uptake involving the basal anterior septum with severely reduced uptake involving the mid to apical anteroseptum. The base the distal lateral and basal anterolateral wall segments appear to have normal myocardial perfusion. 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 Ejection fraction: 22% Wall motion: Global hypokinesis with akinesis to dyskinesis of the apex. No significant transient ischemic dilation. Impression: 1. Negative myocardial perfusion study for significant ischemia. 2. Multivessel CAD territory infarct (LAD, RCA, +/- circumflex). 3. Severely reduced LV systolic function. EF 22%. 4. Severe global hypokinesis with akinesis to dyskinesis of the apex. 5. Lexiscan induced dry heaving. 6. Nondiagnostic Lexiscan ECG. [facility] Myocardial perfusion code Procedure Code Procedure 1: Myocardial Perfusion Codes: 30700 Cardiovascular Stress Test, multiple Procedure 2: Myocardial Perfusion Codes: 65587 Cardiovascular Stress Test, supervision only Procedure 3: Myocardial Perfusion Codes: 40324 Cardiovascular Stress Test, interpretation and report
[2023-11-04] MEDS ORDERED: ERGOCALCIFEROL 1250 MCG (50,000 UNITS) CAP PO SCH (09:00)
== END 2023-10-30 16:48 | disposition home or self-care (01) ==
LOC: EDINP 12:13 → ED 12:13 → SUATTDRO 15:43 → 2S 16:45 → 2N 10-29 22:40

== ENCOUNTER 2025-01-14 21:45 | Inpatient (IN) ==
[2025-01-14] MEDS: SODIUM CHLORIDE 0.9% 500 ML IV SCH (22:12)
[2025-01-14 22:27] LABS: Base Excess VBG 4.7 mEq/L; HCO3 VBG 32 mmol/L; Oxygen Saturation VBG < 60.0 %; PCO2 VBG 58 mmHg (38-50); PO2 VBG < 20 mmHg; pH VBG 7.35 (7.36-7.41)
[2025-01-14] MEDS ORDERED: VANCOMYCIN CONSULT ACTIVE PRN (22:34)
[2025-01-14 22:39] LABS: Hematocrit (blood only) 36.4 % (42.0-52.0); Hemoglobin 12.1 g/dl (14.0-18.0); Immature Granulocytes # (auto) 0.00 K/uL (0.01-0.20); Immature Granulocytes % (auto) 0.0 %; Mean Corpuscular Hemoglobin 33.2 pg (25.0-34.0); Mean Corpuscular Volume 100.0 fL (80.0-100.0); Platelet Count 71 K/uL (130-400); RDW Standard Deviation 61.5 fL (36.4-46.3); Red Blood Count 3.64 M/uL (4.70-6.10); White Blood Count 3.35 K/ul (4.8-10.8)
[2025-01-14] MEDS: SODIUM CHLORIDE 0.9% 500 ML IV ONE ×2 (22:40→23:09)
[2025-01-14] MEDS: PIPERACILLIN/TAZOBACTAM 4.5 GM/120 ML BAG IV ONE (22:54)
[2025-01-14 22:56] LABS: Alanine Aminotransferase 17.0 U/L (7-52); Alkaline Phosphatase 73.0 U/L (34-104); Anion Gap 5.0 (3-11); Bilirubin,Total 1.4 mg/dl (0.2-1.0); Blood Urea Nitrogen 31.0 mg/dl (6-23); Calcium 8.6 mg/dl (8.6-10.3); Carbon Dioxide 31.0 mmol/L (21-32); Chloride 100.0 mmol/L (98-107); Creatinine Clr Calc Pharmacy 32.7 ml/min; Glucose 95.0 mg/dl (70-99(Fasting)); Magnesium 2.2 mg/dl (1.7-2.4); Potassium 4.1 mmol/L (3.5-5.1); Sodium 136.0 mmol/L (136-145); Total Protein 6.9 gm/dl (6.0-8.3)
[2025-01-14 23:15] LABS: INR 1.2 (0.9-1.1); Partial Thromboplastin Time 33 Seconds (21-31); Prothrombin Time 13.3 Seconds (9.0-12.0)
[2025-01-14 23:33] LABS: Chlamydia pneumoniae PCR Not Detected (NotDetected); Coronavirus 229E PCR Not Detected (NotDetected); Coronavirus CoV-2 (COVID19)PCR Not Detected (NotDetected); Coronavirus HKU1 PCR Not Detected (NotDetected); Coronavirus NL63 PCR Not Detected (NotDetected); Coronavirus OC43PCR Not Detected (NotDetected); Human Metapneumovirus PCR Not Detected (NotDetected); Parainfluenza Virus 1 PCR Not Detected (NotDetected); Parainfluenza Virus 2 PCR Not Detected (NotDetected); Parainfluenza Virus 3 PCR Not Detected (NotDetected); Parainfluenza Virus 4 PCR Not Detected (NotDetected); Respiratory Syncytial VirusPCR Not Detected (NotDetected); Rhinovirus/Enterovirus PCR Not Detected (NotDetected)
[2025-01-14] MEDS: VANCOMYCIN HCL 1,250 MG in SODIUM CHLORIDE 0.9% 500 ML IV ONE (23:44)
--- NOTE | 2025-01-15 00:35 | History & Physical Report ---
Date of Service January 15, 2025 Assessment & Plan (1) Acute on chronic HFrEF (heart failure with reduced ejection fraction): (2) Pleural effusion: (3) CALEB (acute kidney injury): (4) CAD S/P percutaneous coronary angioplasty: (5) Paroxysmal atrial fibrillation: (6) Dyslipidemia: (7) Hypothyroidism: Plan: 84yo male with history of CAD, HFrEF secondary to ischemic cardiomyopathy with EF of 20-25%, PAF on Eliquis anticoagulation, Hypothyroidism presenting with hyp otension. Suspect volume overload - elevated BNP, weight does seem to be increased from baseline. GAMALIEL appreciated on exam - has not been documented previously. His last echo in August did sow mild aortic sclerosis as well as moderate mitral regurgitation and tricuspid regurgitation. Possible worsening valvular heart disease, most likely mitral valve, contributing to hypotension, poor perfusion, pleural effusion? #Acute on chronic heart failure with reduced EFsuspect volume overload. Difficult as patient is hypotensive Admit to PCU Check 2D echo Continue Bumex 1 mg p.o. daily Oxygen as needed cardiology consultation appreciated #Pleural effusionpatient with worsening right-sided pleural effusion. Likely secondary to acute decompensated heart failure, possible worsening of valvular heart disease? Hold Eliquis for now Continue Bumex diuresis Closely monitor respiratory status Will likely need to have thoracentesis performed. Will be difficult to diurese the effusion given patient's tenuous blood pressure and compromised renal function #Elevated creatinine = 1.56. Last creatinine = 1.37 on 01/02/2025. Likely secondary to poor perfusion in setting of acute complicated heart failure Avoid nephrotoxic agents Renal dosing or needed Repeat chemistry in the morning #Coronary artery disease Continue aspirin, Plavix, atorvastatin #Atrial fibrillationrate controlled, patient anticoagulated on Eliquis Continue amiodarone 200 mg p.o. daily Hold beta-moraima due to low blood pressure Hold Eliquis for possible thoracentesis #Hypothyroidism Continue Synthroid History of Present Illness Chief Complaint: hypotension Primary Care Provider: DO Bi Ruiz Vanessa is an 84yo male with history of CAD with ICM, PAF on Eliquis anticoagulation (Last dose 01/14/25 at 19:00), HFrEF due to ischemic cardiomyopathy (EF=20-25% with global hypokinesis on echo 08/30/2024) presenting with hypotension over the last two days. Patient reports that his baseline blood pressure is typically 90/60's. This morning his blood pressure was measured to be 75/63. He reports feeling "tired as blue blazes!". His blood pressure was low again this evening at 75/62 which prompted him to come to the ER. He has had stable shortness of breath for the last two weeks. Also with some chest tightness and congestion. Patient takes Bumex 1mg po daily with instruction to take an extra tablet if he gains 3 or more pounds. He weighs himself daily and reports typically weighs 140-143 pounds. There was one day last week that he took the extra dose (01/08) which did result in increased urination. Otherwise he has been continuing his one tablet daily. He is compliant with his medications and salt limitation. Does weigh 148# today on ER scale. No additional complaints - patient denies chest pain, palpitations, nausea, vomiting, diarrhea, abdominal pain or fullness. In the ER patient's blood pressure low 80's/60's. He was given a small amount of fluid with no significant changes in BP. ER Course: NSS x 1000mL Zosyn 4.5gm Vancomycin Allergies Allergy/AdvReac Type Severity Reaction Status Date / Time lisinopril AdvReac Intermediate HYPOTENSION Verified 01/11/25 08:32 Home Medications Medication Instructions Recorded Confirmed Type biotin 5 mg tablet 5 mg PO DAILY 07/19/19 01/14/25 History apixaban 5 mg tablet (Eliquis) 5 mg PO Q12H #180 tabs 10/31/23 01/14/25 Rx metoprolol succinate 25 mg 25 mg PO DAILY #90 tabs 12/07/23 01/14/25 Rx tablet,extended release 24 hr ferrous sulfate 325 mg (65 mg 325 mg PO DAILY #90 tabs 01/13/24 01/14/25 Rx iron) tablet dapagliflozin propanediol 10 mg 10 mg PO DAILY #90 tabs 03/31/24 01/14/25 Rx tablet (Farxiga) pantoprazole 40 mg tablet,delayed 40 mg PO DAILY #90 tabs 04/01/24 01/14/25 Rx release nitroglycerin 0.4 mg sublingual 0.4 mg sublingual Q5M PRN Chest 04/04/24 01/14/25 History tablet Pain bumetanide 1 mg tablet 1 mg PO Q OTHER DAY #120 tabs 09/08/24 01/14/25 Rx tamsulosin 0.4 mg capsule 0.4 mg PO HS #90 caps 10/07/24 01/14/25 Rx clopidogrel 75 mg tablet 75 mg PO QAM #90 tabs 10/18/24 01/14/25 Rx atorvastatin 40 mg tablet 40 mg PO QPM #90 tabs 11/08/24 01/14/25 Rx potassium chloride 20 mEq 20 meq PO DAILY PRN Take with 12/19/24 01/14/25 Rx tablet,extended release bumetanide #90 tabs amiodarone 200 mg tablet 200 mg PO DAILY #90 tabs 12/28/24 01/14/25 Rx levothyroxine 50 mcg tablet 50 mcg PO DAILY #90 tabs 01/02/25 01/14/25 Rx Oxygen Home #1 ea 01/11/25 01/14/25 Rx Past Med/Surg History Problem List (Updated 01/15/25 @ 03:11 by Mercy Wilkinson DO) CALEB (acute kidney injury) Pleural effusion (Acute) Hypothyroidism due to amiodarone Vertigo BPH w urinary obs/LUTS (Chronic) Marlon-Cage respiration 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 Hypothyroidism Nocturnal hypoxemia Hypersomnia Oxygen desaturation Biventricular ICD (implantable cardioverter-defibrillator) in place IVCD (intraventricular conduction defect) Insomnia Snoring Pancytopenia Dizziness Vitamin B12 deficiency Tremor Gait abnormality Memory impairment Paroxysmal atrial fibrillation Tinnitus Exertional shortness of breath Pleural effusion Calcified granuloma of lung Hypervolemia Anemia Vitamin D deficiency Bunion, right foot On amiodarone therapy Sinus bradycardia Lumbar stenosis Low back strain Paroxysmal ventricular tachycardia (Acute) Dyslipidemia (Acute) 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 No new EKG changes. 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 AICD at end of battery life Acute on chronic HFrEF (heart failure with reduced ejection fraction) Acute URI of multiple sites Abnormal urinary stream Chest pain Multiple fractures of ribs of both sides Thoracic compression fracture Laceration of ear, external, left, complicated Hernia Acute chest pain Near syncope Surgical History H/O rotator cuff surgery Previous back surgery Family History Brother Myocardial infarction Denies family history of Ovarian cancer Prostate cancer Breast cancer Colorectal cancer Social History Smoking Status: Never smoker Second Hand Exposure: No; Do You Dip or Chew Tobacco: No; Hx Alcohol Use: Yes Alcohol type: hard liquor Alcohol Intake Frequency: Monthly or Less Hx Substance Use: No Preferred Language: Bengali Communication Ability: Effective Visual Impairment: Limited Hearing Ability: Use of Hearing Aid Physical Integration Practitioner Required: Yes and No Beliefs That Will Affect Care: None marital status: / Current Living Situation: Alone current occupational status: retired How many Children do You have: 2 Feels Safe at Home: Yes Childhood Exposure to Second-Hand Smoke: Yes Diet: regular caffeine: Yes during the past year weight has: remained stable Dental Care, Regularly: Yes Physical Activity Frequency: Daily Seatbelt Use: other (pt refused) Sunscreen Use: No Assistive Devices: Denture - Upper, Glasses, Hearing Aid - Bilateral and Oxygen - at Night Review of Systems Review of Systems: All systems reviewed & are unremarkable except as noted in HPI & below Physical Exam Physical Exam: General: patient resting comfortably, NAD, non-toxic in appearance, AA&O x 4 Skin: warm, dry, intact, no rashes or lesions HEENT: NC/AT, PERRL, EOMI, anicteric sclera, conjunctiva without injection, external ear normal to inspection and nontender, nares patent, moist mucus membranes, dentition intact, no oropharyngeal lesions, neck supple, trachea midline, no LAD, no thyromegaly, no JVD Heart: +S1/S2, regular, 4/6 GAMALIEL at Left Sternal border with radiation into the apex, AICD in place Lungs: equal air entry bilaterally, diminished breath sounds in the right lung field, crackles present at left base Abd: +BS, soft, NT/ND, no masses/organomegaly/ascites Ext: warm, 2+ pulses in UE/LE bilaterally, no clubbing/cyanosis, trace pitting edema of bilateral LE Neuro: nonfocal, patient AA&O x 4, speech intact, no facial droop, moving all extremities on command with equal strength 5/5 Results & Data Results & Data Vital Signs (Past 12 Hours) Vital Signs Temp Pulse Pulse Resp BP BP Pulse Ox 01/14/25 23:00 62 23 86/67 L 90 01/14/25 22:50 60 18 89/69 L 96 01/14/25 22:30 60 18 87/61 L 98 01/14/25 22:19 97 01/14/25 22:04 60 18 105/80 97 01/14/25 21:59 97 01/14/25 21:58 70 01/14/25 21:47 36.8 C 79 18 81/58 L 94 O2 Del Method O2 Flow Rate 01/14/25 23:00 Room Air 01/14/25 22:50 Room Air 01/14/25 22:30 Room Air 01/14/25 22:19 Room Air 0 01/14/25 22:04 Room Air 01/14/25 21:59 Room Air 01/14/25 21:58 01/14/25 21:47 Room Air Laboratory Results Laboratory Results WBC 3.35 K/ul (4.8-10.8) L 01/14/25 22:06 RBC 3.64 M/uL (4.70-6.10) L 01/14/25 22:06 Hgb 12.1 g/dl (14.0-18.0) L 01/14/25 22:06 Hct 36.4 % (42.0-52.0) L 01/14/25 22:06 MCV 100.0 fL (80.0-100.0) 01/14/25 22:06 MCH 33.2 pg (25.0-34.0) 01/14/25 22:06 MCHC 33.2 g/dL (32.0-36.0) 01/14/25 22:06 RDW Std Deviation 61.5 fL (36.4-46.3) H 01/14/25 22:06 RDW Coeff of Arie 16.5 % (11.5-14.5) H 01/14/25 22:06 Plt Count 71 K/uL (130-400) L 01/14/25 22:06 MPV 11.2 fL (9.4-12.4) 01/14/25 22:06 Immature Gran % (Auto) 0.0 % 01/14/25 22:06 Neut % (Auto) 46.9 % 01/14/25 22:06 Lymph % (Auto) 39.1 % 01/14/25 22:06 [place] % (Auto) 10.1 % 01/14/25 22:06 Eos % (Auto) 3.0 % 01/14/25 22:06 Baso % (Auto) 0.9 % 01/14/25 22:06 Neut # (Auto) 1.57 K/uL (1.40-6.50) 01/14/25 22:06 Lymph # (Auto) 1.31 K/uL (1.20-3.40) 01/14/25 22:06 [place] # (Auto) 0.34 K/uL (0.11-0.59) 01/14/25 22:06 Eos # (Auto) 0.10 K/uL (0.00-0.50) 01/14/25 22:06 Baso # (Auto) 0.03 K/uL (0.00-0.20) 01/14/25 22:06 Immature Gran # (Auto) 0.00 K/uL (0.01-0.20) L 01/14/25 22:06 PT 13.3 Seconds (9.0-12.0) H 01/14/25 22:06 INR 1.2 (0.9-1.1) H 01/14/25 22:06 APTT 33 Seconds (21-31) H 01/14/25 22:06 PTT Ratio 1.2 01/14/25 22:06 VBG pH 7.35 (7.36-7.41) L 01/14/25 22:06 VBG pCO2 58 mmHg (38-50) H 01/14/25 22:06 VBG pO2 < 20 mmHg 01/14/25 22:06 VBG HCO3 32 mmol/L 01/14/25 22:06 VBG O2 Saturation < 60.0 % 01/14/25 22:06 VBG Base Excess 4.7 mEq/L 01/14/25 22:06 Sodium 136 mmol/L (136-145) 01/14/25 22:06 Potassium 4.1 mmol/L (3.5-5.1) 01/14/25 22:06 Chloride 100 mmol/L (98-107) 01/14/25 22:06 Carbon Dioxide 31 mmol/L (21-32) 01/14/25 22:06 Anion Gap 5 (3-11) 01/14/25 22:06 BUN 31 mg/dl (6-23) H 01/14/25 22:06 Creatinine 1.56 mg/dl (0.6-1.4) H 01/14/25 22:06 Est Cr Clr Drug Dosing 32.7 ml/min 01/14/25 22:06 eGFR 42.99 01/14/25 22:06 BUN/Creatinine Ratio 19.9 (10-20) 01/14/25 22:06 Glucose 95 mg/dl (70-99(Fasting)) 01/14/25 22:06 Lactate 1.4 mmol/L (0.4-2.0) 01/14/25 22:06 Calcium 8.6 mg/dl (8.6-10.3) 01/14/25 22:06 Phosphorus 4.0 mg/dl (2.5-4.9) 01/14/25 22:06 Magnesium 2.2 mg/dl (1.7-2.4) 01/14/25 22:06 Total Bilirubin 1.4 mg/dl (0.2-1.0) H 01/14/25 22:06 Direct Bilirubin 0.4 mg/dl (0-0.2) H 01/14/25 22:06 AST 81 U/L (13-39) H 01/14/25 22:06 ALT 17 U/L (7-52) 01/14/25 22:06 Alkaline Phosphatase 73 U/L (34-104) 01/14/25 22:06 Troponin I High Sens 17.2 pg/ml (0-20) 01/14/25 22:06 B-Natriuretic Peptide 1554 pg/ml (0-100) H 01/14/25 22:06 Total Protein 6.9 gm/dl (6.0-8.3) 01/14/25 22:06 Albumin 3.9 gm/dl (3.4-5.0) 01/14/25 22:06 Procalcitonin 0.03 ng/ml (0-0.5) 01/14/25 22:06 Random Cortisol 10.63 mcg/dl 01/14/25 22:06 Adenovirus (PCR) Not Detected (NotDetected) 01/14/25 22:12 B. pertussis DNA (PCR) Not Detected (NotDetected) 01/14/25 22:12 B.parapertussis DNA PCR Not Detected (NotDetected) 01/14/25 22:12 C. pneumoniae DNA (PCR) Not Detected (NotDetected) 01/14/25 22:12 Coronavirus OC43 (PCR) Not Detected (NotDetected) 01/14/25 22:12 Coronavirus HKU1 (PCR) Not Detected (NotDetected) 01/14/25 22:12 Coronavirus 229E (PCR) Not Detected (NotDetected) 01/14/25 22:12 SARS-CoV-2 (PCR) Not Detected (NotDetected) 01/14/25 22:12 Coronavirus NL63 (PCR) Not Detected (NotDetected) 01/14/25 22:12 Human Metapneumovir PCR Not Detected (NotDetected) 01/14/25 22:12 Influenza Type A (PCR) Not Detected (NotDetected) 01/14/25 22:12 Influenza Type B (PCR) Not Detected (NotDetected) 01/14/25 22:12 M. pneumoniae (PCR) Not Detected (NotDetected) 01/14/25 22:12 Parainfluenza 1 (PCR) Not Detected (NotDetected) 01/14/25 22:12 Parainfluenza 2 (PCR) Not Detected (NotDetected) 01/14/25 22:12 Parainfluenza 3 (PCR) Not Detected (NotDetected) 01/14/25 22:12 Parainfluenza 4 (PCR) Not Detected (NotDetected) 01/14/25 22:12 RSV (PCR) Not Detected (NotDetected) 01/14/25 22:12 Entero/Rhino (PCR) Not Detected (NotDetected) 01/14/25 22:12 Impressions Chest X-Ray 01/14/25 21:59 Exam(s): XR CXR 1 VIEW EXAM: XR Chest, 1 View CLINICAL HISTORY: Reason for exam: Sepsis. TECHNIQUE: Frontal view of the chest. COMPARISON: 12/04/2023 FINDINGS: Lungs: Hazy increased density in the right mid to lower brandt thorax with obscured diaphragm and costophrenic angle. No consolidation. Pleural space: Unremarkable. No pneumothorax. Heart: Unremarkable. No cardiomegaly. Mediastinum: Unremarkable. Normal mediastinal contour. Bones/joints: [id number] osteophytosis of the mid to lower thoracic spine. No acute fracture. Vasculature: The aorta is mildly calcified and tortuous, unchanged. Tubes, lines and devices: The cardiac silhouette is mildly enlarged. There is a pacing device on the left with leads extending through the right side of the heart. Upper abdomen: Unremarkable as visualized. No pneumoperitoneum under the diaphragm. IMPRESSION: 1. Hazy increased density in the right mid to lower brandt thorax with obscured diaphragm and costophrenic angle. Consider pneumonia versus atelectasis with probable small right pleural effusion. This is new. 2. The cardiac silhouette is mildly enlarged. There is a pacing device on the left with leads extending through the right side of the heart. Electronically signed by: Rajan Wilkinson MD 01/15/25 00:37 AM Code Status & VTE Plan VTE Prophylaxis Plan VTE Prophylaxis will be ordered: Yes PG Care Time/CCT Total # of Minutes Spent Total Time Spent with Patient: Total time spent is greater than 50% in coordination of care (as documented) at patient's floor/unit and/or counseling patient: Coding Level of Care Code 25987 INT INP/OBS CARE 3/75MIN Diagnoses Acute on chronic HFrEF (heart failure with reduced ejection fraction) I50.23 Pleural effusion J90 CALEB (acute kidney injury) N17.9 CAD S/P percutaneous coronary angioplasty I25.10; Z98.61 Paroxysmal atrial fibrillation I48.0 Dyslipidemia E78.5 Hypothyroidism E03.9
--- NOTE | 2025-01-15 00:38 | XRay Report ---
Exam(s): XR CXR 1 VIEW EXAM: XR Chest, 1 View CLINICAL HISTORY: Reason for exam: Sepsis. TECHNIQUE: Frontal view of the chest. COMPARISON: 12/04/2023 FINDINGS: Lungs: Hazy increased density in the right mid to lower brandt thorax with obscured diaphragm and costophrenic angle. No consolidation. Pleural space: Unremarkable. No pneumothorax. Heart: Unremarkable. No cardiomegaly. Mediastinum: Unremarkable. Normal mediastinal contour. Bones/joints: [id number] osteophytosis of the mid to lower thoracic spine. No acute fracture. Vasculature: The aorta is mildly calcified and tortuous, unchanged. Tubes, lines and devices: The cardiac silhouette is mildly enlarged. There is a pacing device on the left with leads extending through the right side of the heart. Upper abdomen: Unremarkable as visualized. No pneumoperitoneum under the diaphragm. IMPRESSION: 1. Hazy increased density in the right mid to lower brandt thorax with obscured diaphragm and costophrenic angle. Consider pneumonia versus atelectasis with probable small right pleural effusion. This is new. 2. The cardiac silhouette is mildly enlarged. There is a pacing device on the left with leads extending through the right side of the heart. Electronically signed by: Rajan Wilkinson MD 01/15/25 00:37 AM
[2025-01-15] MEDS ORDERED: ACETAMINOPHEN 325 MG TAB PO PRN (01:16)
--- NOTE | 2025-01-15 01:18 | Emergency Department Note ---
History of Present Illness General Chief Complaint: Shortness of Breath/Dyspnea Stated Complaint: SOB,HYPOTENSION Time Seen by Provider: 01/14/25 21:51 History of Present Illness Provider Complaint: shortness of breath Onset (ago): day(s) (1) Consistency/Duration: + progressively worsening Relieved By: + upright position Exacerbated By: + lying flat and + exertion Context: no recent illness or no medication noncompliance Known history of: congestive heart failure Associated symptoms: + orthopnea; no chest pain, no pain with inspiration, no fever, no cough, no wheezing, no sputum production, no polydipsia, no hemoptysis or no nausea/vomiting HPI Narrative: Patient reports he has been monitoring his blood pressure today and noticed that it was very low. Patient reports he is compliant with all of his medications including his amiodarone and Eliquis. Home Medications Medication Instructions Recorded Confirmed Type biotin 5 mg tablet 5 mg PO DAILY 07/19/19 01/14/25 History apixaban 5 mg tablet (Eliquis) 5 mg PO Q12H #180 tabs 10/31/23 01/14/25 Rx metoprolol succinate 25 mg 25 mg PO DAILY #90 tabs 12/07/23 01/14/25 Rx tablet,extended release 24 hr ferrous sulfate 325 mg (65 mg 325 mg PO DAILY #90 tabs 01/13/24 01/14/25 Rx iron) tablet dapagliflozin propanediol 10 mg 10 mg PO DAILY #90 tabs 03/31/24 01/14/25 Rx tablet (Farxiga) pantoprazole 40 mg tablet,delayed 40 mg PO DAILY #90 tabs 04/01/24 01/14/25 Rx release nitroglycerin 0.4 mg sublingual 0.4 mg sublingual Q5M PRN Chest 04/04/24 01/14/25 History tablet Pain bumetanide 1 mg tablet 1 mg PO Q OTHER DAY #120 tabs 09/08/24 01/14/25 Rx tamsulosin 0.4 mg capsule 0.4 mg PO HS #90 caps 10/07/24 01/14/25 Rx clopidogrel 75 mg tablet 75 mg PO QAM #90 tabs 10/18/24 01/14/25 Rx atorvastatin 40 mg tablet 40 mg PO QPM #90 tabs 11/08/24 01/14/25 Rx potassium chloride 20 mEq 20 meq PO DAILY PRN Take with 12/19/24 01/14/25 Rx tablet,extended release bumetanide #90 tabs amiodarone 200 mg tablet 200 mg PO DAILY #90 tabs 12/28/24 01/14/25 Rx levothyroxine 50 mcg tablet 50 mcg PO DAILY #90 tabs 01/02/25 01/14/25 Rx Oxygen Home #1 ea 01/11/25 01/14/25 Rx Allergies Allergy/AdvReac Type Severity Reaction Status Date / Time lisinopril AdvReac Intermediate HYPOTENSION Verified 01/11/25 08:32 Past Med/Surg History Problem List (Updated 01/15/25 @ 01:22 by Ray Schultz MD) Pleural effusion (Acute) Hypothyroidism due to amiodarone Vertigo BPH w urinary obs/LUTS (Chronic) Marlon-Cage respiration 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 Hypothyroidism Nocturnal hypoxemia Hypersomnia Oxygen desaturation Biventricular ICD (implantable cardioverter-defibrillator) in place IVCD (intraventricular conduction defect) Insomnia Snoring Pancytopenia Dizziness Vitamin B12 deficiency Tremor Gait abnormality Memory impairment Paroxysmal atrial fibrillation Tinnitus Exertional shortness of breath Pleural effusion Calcified granuloma of lung Hypervolemia Anemia Vitamin D deficiency Bunion, right foot On amiodarone therapy Sinus bradycardia Lumbar stenosis Low back strain Paroxysmal ventricular tachycardia (Acute) Dyslipidemia (Acute) 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 No new EKG changes. 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 AICD at end of battery life Acute on chronic HFrEF (heart failure with reduced ejection fraction) Acute URI of multiple sites Abnormal urinary stream Chest pain Multiple fractures of ribs of both sides Thoracic compression fracture Laceration of ear, external, left, complicated Hernia Acute chest pain Near syncope Surgical History H/O rotator cuff surgery Previous back surgery Family History Brother Myocardial infarction Denies family history of Ovarian cancer Prostate cancer Breast cancer Colorectal cancer Social History Smoking Status: Never smoker Second Hand Exposure: No; Do You Dip or Chew Tobacco: No; Hx Alcohol Use: Yes Alcohol type: hard liquor Alcohol Intake Frequency: Monthly or Less Hx Substance Use: No Preferred Language: French Communication Ability: Effective Visual Impairment: Limited Hearing Ability: Use of Hearing Aid [employer] Required: No Beliefs That Will Affect Care: None marital status: / Current Living Situation: Alone current occupational status: retired How many Children do You have: 2 Feels Safe at Home: Yes Childhood Exposure to Second-Hand Smoke: Yes Diet: regular caffeine: Yes during the past year weight has: remained stable Dental Care, Regularly: Yes Physical Activity Frequency: Daily Seatbelt Use: other (pt refused) Sunscreen Use: No Assistive Devices: None Physical Exam 2 Vital Signs: Vital Signs - 24 hr 01/14/25 21:47 01/14/25 21:58 01/14/25 21:59 Temperature 36.8 C Temperature Source Temporal Artery Sc an Pulse Rate 79 70 Pulse Rate [Apical ] Pulse Rhythm Regular Pulse Rhythm [Apic al] Pulse Strength Normal Pulse Strength [Ap ical] Respiratory Rate 18 Respiratory Effort / Characteristics Non-Labored Sponta neous Respiratory Depth Normal Respiratory Patter n Blood Pressure 81/58 L Blood Pressure [Ri ght Arm] Blood Pressure Tessy n 65 Blood Pressure Tessy n [Right Arm] Blood Pressure Pos ition Sitting Blood Pressure Pos ition [Right Arm] Pulse Oximetry 94 97 Oxygen Delivery Me thod Room Air Room Air Oxygen Flow Rate Sepsis Recent Feve r Within 48 Hours No Sepsis New/Unexpla ined Change in Men matthew Status N/A Sepsis Action Take n by Nursing No Action Required 01/14/25 22:04 01/14/25 22:19 01/14/25 22:30 Temperature Temperature Source Pulse Rate Pulse Rate [Apical ] 60 60 Pulse Rhythm Pulse Rhythm [Apic al] Pulse Strength Pulse Strength [Ap ical] Respiratory Rate 18 18 Respiratory Effort / Characteristics Non-Labored Sponta neous Non-Labored Sponta neous Respiratory Depth Normal Normal Respiratory Patter n Regular Regular Blood Pressure Blood Pressure [Ri ght Arm] 105/80 87/61 L Blood Pressure Tessy n Blood Pressure Tessy n [Right Arm] 88 69 Blood Pressure Pos ition Blood Pressure Pos ition [Right Arm] Semi-fowlers Semi-fowlers Pulse Oximetry 97 97 98 Oxygen Delivery Me thod Room Air Room Air Room Air Oxygen Flow Rate 0 Sepsis Recent Feve r Within 48 Hours Sepsis New/Unexpla ined Change in Men matthew Status Sepsis Action Take n by Nursing 01/14/25 22:50 01/14/25 23:00 Temperature Temperature Source Pulse Rate Pulse Rate [Apical ] 60 62 Pulse Rhythm Pulse Rhythm [Apic al] Regular Pulse Strength Pulse Strength [Ap ical] Normal Respiratory Rate 18 23 Respiratory Effort / Characteristics Non-Labored Sponta neous Non-Labored Sponta neous Respiratory Depth Normal Normal Respiratory Patter n Regular Regular Blood Pressure Blood Pressure [Ri ght Arm] 89/69 L 86/67 L Blood Pressure Tessy n Blood Pressure Tessy n [Right Arm] 75 73 Blood Pressure Pos ition Blood Pressure Pos ition [Right Arm] Semi-fowlers Lying Pulse Oximetry 96 90 Oxygen Delivery Me thod Room Air Room Air Oxygen Flow Rate Sepsis Recent Feve r Within 48 Hours Sepsis New/Unexpla ined Change in Men matthew Status Sepsis Action Take n by Nursing Physical Exam: Physical Exam GENERAL: oriented to person, place, and time. appears well-developed and well- nourished. HENT: Exam performed. - Head: Normocephalic and atraumatic. EYES: Conjunctivae and EOM are normal. Right eye exhibits no discharge. Left eye exhibits no discharge. No scleral icterus. NECK: Normal range of motion. Neck supple. No JVD present. CV: Normal rate, regular rhythm, normal heart sounds and intact distal pulses. There is no peripheral edema. Palpable radial pulses bue. PULM/CHEST: Diminished breath sounds bilaterally. ABD: The abdomen is soft. There is no tenderness. NEURO: Motor and sensation grossly intact. SKIN: Skin is warm and dry. He is not diaphoretic. PSYCH: normal mood and affect. Behavior is normal. Judgment and thought content normal. Course Course 2150: The patient was evaluated in room A3. A complete history and physical exam was performed Cardiac monitoring: An order was placed for continuous cardiac monitoring. The monitor shows a rate of 70 with sinus rhythm interpreted by me Patient hypotensive in the room. Sepsis protocols initiated. Patient has a history of CHF 500 cc IV fluid ordered for the patient gently. Bedside LEDEZMA exam showed no AAA, no free fluid in the abdomen, no pneumothorax however there is a large right-sided pleural effusion. Given the large right- sided pleural effusion there is concerned that there may be infectious component to this. Broad-spectrum antibiotics Zosyn and vancomycin ordered for the patient. 2312: Patient remains hypotensive despite 500 cc normal saline bolus. Repeat 500 cc normal saline bolus ordered. Chest x-ray confirms the large right-sided pleural effusion. Lactic acid white blood cell count are within normal limits. Procalcitonin is within normal limits. BNP is elevated. Troponin is unremarkable. Discussed case with Dr. Wilkinson who will evaluate the patient for admission. Administered Medications Discontinued Medications Sodium Chloride (Nss) 500 mls @ 999 mls/hr IV .Q31M KODY Stop: 01/14/25 22:30 Last Admin: 01/14/25 22:12 Dose: Not Given Documented By: NOLBERTO Sodium Chloride (Nss) 500 mls @ 999 mls/hr IV .Q31M ONE Stop: 01/14/25 23:04 Last Infusion: 01/14/25 23:08 Dose: Infused Documented By: Admin: 01/14/25 22:40 Dose: 999 mls/hr Documented By: ANIYA Piperacillin Sod/Tazobactam Sod (Zosyn) 4.5 gm in 120 mls @ 240 mls/hr IV NOW ONE Stop: 01/14/25 23:03 Last Infusion: 01/14/25 23:28 Dose: Infused Documented By: Admin: 01/14/25 22:54 Dose: 240 mls/hr Documented By: NOLBERTO Vancomycin HCl 1,250 mg/ (Sodium Chloride) 525 mls @ 200 mls/hr IV NOW ONE Stop: 01/15/25 01:11 Last Admin: 01/14/25 23:44 Dose: 200 mls/hr Documented By: BELÉN Sodium Chloride (Nss) 500 mls @ 999 mls/hr IV .Q31M ONE Stop: 01/14/25 23:34 Last Infusion: 01/14/25 23:41 Dose: Infused Documented By: Admin: 01/14/25 23:09 Dose: 999 mls/hr Documented By: ANIYA Medical Decision Making Laboratory Data Attestation: I reviewed the patient's lab results. 01/14/25 22:06 01/14/25 22:06 Lab Results 01/14/25 01/14/25 Range/Units 22:06 22:12 WBC 3.35 L (4.8-10.8) K/ul RBC 3.64 L (4.70-6.10) M/uL Hgb 12.1 L (14.0-18.0) g/dl Hct 36.4 L (42.0-52.0) % MCV 100.0 (80.0-100.0) fL MCH 33.2 (25.0-34.0) pg MCHC 33.2 (32.0-36.0) g/dL RDW Std Deviation 61.5 H (36.4-46.3) fL RDW Coeff of Arie 16.5 H (11.5-14.5) % Plt Count 71 L (130-400) K/uL MPV 11.2 (9.4-12.4) fL Immature Gran % (Auto) 0.0 % Neut % (Auto) 46.9 % Lymph % (Auto) 39.1 % Allen % (Auto) 10.1 % Eos % (Auto) 3.0 % Baso % (Auto) 0.9 % Neut # (Auto) 1.57 (1.40-6.50) K/uL Lymph # (Auto) 1.31 (1.20-3.40) K/uL Allen # (Auto) 0.34 (0.11-0.59) K/uL Eos # (Auto) 0.10 (0.00-0.50) K/uL Baso # (Auto) 0.03 (0.00-0.20) K/uL Immature Gran # (Auto) 0.00 L (0.01-0.20) K/uL PT 13.3 H (9.0-12.0) Seconds INR 1.2 H (0.9-1.1) APTT 33 H (21-31) Seconds PTT Ratio 1.2 VBG pH 7.35 L (7.36-7.41) VBG pCO2 58 H (38-50) mmHg VBG pO2 < 20 mmHg VBG HCO3 32 mmol/L VBG O2 Saturation < 60.0 % VBG Base Excess 4.7 mEq/L Sodium 136 (136-145) mmol/L Potassium 4.1 (3.5-5.1) mmol/L Chloride 100 (98-107) mmol/L Carbon Dioxide 31 (21-32) mmol/L Anion Gap 5 (3-11) BUN 31 H (6-23) mg/dl Creatinine 1.56 H (0.6-1.4) mg/dl Est Cr Clr Drug Dosing 32.7 ml/min eGFR 42.99 BUN/Creatinine Ratio 19.9 (10-20) Glucose 95 (70-99(Fasting)) mg/dl Lactate 1.4 (0.4-2.0) mmol/L Calcium 8.6 (8.6-10.3) mg/dl Magnesium 2.2 (1.7-2.4) mg/dl Total Bilirubin 1.4 H (0.2-1.0) mg/dl Direct Bilirubin 0.4 H (0-0.2) mg/dl AST 81 H (13-39) U/L ALT 17 (7-52) U/L Alkaline Phosphatase 73 (34-104) U/L Troponin I High Sens 17.2 (0-20) pg/ml B-Natriuretic Peptide 1554 H (0-100) pg/ml Total Protein 6.9 (6.0-8.3) gm/dl Albumin 3.9 (3.4-5.0) gm/dl Procalcitonin 0.03 (0-0.5) ng/ml Random Cortisol 10.63 mcg/dl Adenovirus (PCR) Not Detected (NotDetected) B. pertussis DNA (PCR) Not Detected (NotDetected) B.parapertussis DNA PCR Not Detected (NotDetected) C. pneumoniae DNA (PCR) Not Detected (NotDetected) Coronavirus OC43 (PCR) Not Detected (NotDetected) Coronavirus HKU1 (PCR) Not Detected (NotDetected) Coronavirus 229E (PCR) Not Detected (NotDetected) SARS-CoV-2 (PCR) Not Detected (NotDetected) Coronavirus NL63 (PCR) Not Detected (NotDetected) Human Metapneumovir PCR Not Detected (NotDetected) Influenza Type A (PCR) Not Detected (NotDetected) Influenza Type B (PCR) Not Detected (NotDetected) M. pneumoniae (PCR) Not Detected (NotDetected) Parainfluenza 1 (PCR) Not Detected (NotDetected) Parainfluenza 2 (PCR) Not Detected (NotDetected) Parainfluenza 3 (PCR) Not Detected (NotDetected) Parainfluenza 4 (PCR) Not Detected (NotDetected) RSV (PCR) Not Detected (NotDetected) Entero/Rhino (PCR) Not Detected (NotDetected) Imaging Data Attestation: I personally reviewed and interpreted this imaging study as follows: My Impression: Chest x-ray: Right-sided pleural effusion Radiologist's Impression: Chest X-Ray 01/14/25 21:59 Exam(s): XR CXR 1 VIEW EXAM: XR Chest, 1 View CLINICAL HISTORY: Reason for exam: Sepsis. TECHNIQUE: Frontal view of the chest. COMPARISON: 12/04/2023 FINDINGS: Lungs: Hazy increased density in the right mid to lower brandt thorax with obscured diaphragm and costophrenic angle. No consolidation. Pleural space: Unremarkable. No pneumothorax. Heart: Unremarkable. No cardiomegaly. Mediastinum: Unremarkable. Normal mediastinal contour. Bones/joints: [id number] osteophytosis of the mid to lower thoracic spine. No acute fracture. Vasculature: The aorta is mildly calcified and tortuous, unchanged. Tubes, lines and devices: The cardiac silhouette is mildly enlarged. There is a pacing device on the left with leads extending through the right side of the heart. Upper abdomen: Unremarkable as visualized. No pneumoperitoneum under the diaphragm. IMPRESSION: 1. Hazy increased density in the right mid to lower brandt thorax with obscured diaphragm and costophrenic angle. Consider pneumonia versus atelectasis with probable small right pleural effusion. This is new. 2. The cardiac silhouette is mildly enlarged. There is a pacing device on the left with leads extending through the right side of the heart. Electronically signed by: Rajan Wilkinson MD 01/15/25 00:37 AM ECG Data Attestation: I personally reviewed and interpreted this ECG as follows: Interpretation: Paced rhythm with rate of 69. VT 164 QT RS 172 QTc 563. No ectopy. [facility] Narrative 2151: The patient was evaluated in room A3. A complete history and physical exam was performed Cardiac monitoring: An order was placed for continuous cardiac monitoring. The monitor shows a rate of 70 with sinus rhythm interpreted by me Patient hypotensive in the room. Sepsis protocols initiated. Patient has a history of CHF 500 cc IV fluid ordered for the patient gently. Bedside LEDEZMA exam showed no AAA, no free fluid in the abdomen, no pneumothorax however there is a large right-sided pleural effusion. Given the large right- sided pleural effusion there is concerned that there may be infectious component to this. Broad-spectrum antibiotics Zosyn and vancomycin ordered for the patient. 2312: Patient remains hypotensive despite 500 cc normal saline bolus. Repeat 500 cc normal saline bolus ordered. Chest x-ray confirms the large right-sided pleural effusion. Lactic acid white blood cell count are within normal limits. Procalcitonin is within normal limits. BNP is elevated. Troponin is unremarkable. Discussed case with Dr. Wilkinson who will evaluate the patient for admission. Impression & Plan Pleural effusion Discharge Plan Visit Data Chief Complaint: Shortness of Breath/Dyspnea Stated Complaint: SOB,HYPOTENSION ED Provider: Ray Schultz Discharge Problem: Pleural effusion Patient Disposition: Admitted As Inpatient Condition: Serious
[2025-01-15] MEDS: LEVOTHYROXINE SODIUM 50 MCG TABLET PO SCH (06:34)
[2025-01-15 07:05] LABS: Hematocrit (blood only) 35.3 % (42.0-52.0); Hemoglobin 11.7 g/dl (14.0-18.0); Mean Corpuscular Hemoglobin 33.2 pg (25.0-34.0); Mean Corpuscular Volume 100.3 fL (80.0-100.0); Platelet Count 65 K/uL (130-400); RDW Standard Deviation 61.2 fL (36.4-46.3); Red Blood Count 3.52 M/uL (4.70-6.10); White Blood Count 3.86 K/ul (4.8-10.8)
[2025-01-15 07:23] LABS: Alanine Aminotransferase 16.0 U/L (7-52); Alkaline Phosphatase 65.0 U/L (34-104); Anion Gap 3.0 (3-11); Bilirubin,Total 1.2 mg/dl (0.2-1.0); Blood Urea Nitrogen 29.0 mg/dl (6-23); Calcium 8.2 mg/dl (8.6-10.3); Carbon Dioxide 31.0 mmol/L (21-32); Chloride 104.0 mmol/L (98-107); Creatinine Clr Calc Pharmacy 38.5 ml/min; Glucose 88.0 mg/dl (70-99(Fasting)); Potassium 4.1 mmol/L (3.5-5.1); Sodium 138.0 mmol/L (136-145); Total Protein 6.2 gm/dl (6.0-8.3)
[2025-01-15 08:19] LABS: Appearance Urine Clear (Clear); Bacteria Urine Automated None Seen (None Seen); Cast Urine Automated 0-2 /lpf (0-2); Epithelial Cell Urine Auto 0-2 /hpf (0-2); Glucose Urine UA 3+ (Negative); RBC Urine Automated 0-2 /hpf (0-2); WBC Urine Automated 0-5 /hpf (0-5)
[2025-01-15] MEDS: CLOPIDOGREL BISULFATE 75 MG TAB PO SCH (08:51)
--- NOTE | 2025-01-15 09:19 | Cardiology Consultation ---
Date of Consultation January 15, 2025 Assessment & Plan (1) Acute on chronic HFrEF (heart failure with reduced ejection fraction): (2) Pleural effusion: (3) Biventricular ICD (implantable cardioverter-defibrillator) in place: (4) Paroxysmal atrial fibrillation: (5) Cardiomyopathy, ischemic: (6) CAD S/P percutaneous coronary angioplasty: (7) Hypothyroidism: Plan 1. Acute decompensated heart failure with reduced ejection fraction: His symptoms are consistent with pulmonary vascular congestion. He has an element of peripheral edema. He has a large right pleural effusion. BNP is significantly elevated, OptiVol is elevated and his weight seems increased. He describes orthopnea. He was given his oral bumetanide today. Will see if he affects a reasonable diuresis. We may need to be more aggressive keeping in mind that he has relative hypotension. If his oral dose this morning does not produce an adequate effect I would switch to intravenous bumetanide. I would have a low threshold for institution of inotropic therapy (dobutamine or dopamine) and continue diuresis. 2. Cardiomyopathy: Severe. Ischemic. Outpatient regimen consist of diuretic, Farxiga and metoprolol succinate. Metoprolol currently being held due to hypotension. 3. Atrial fibrillation: Not recorded on his device currently. On low-dose amiodarone and systemic anticoagulation. Apixaban being held in order to facilitate thoracentesis if indicated. 4. Normally functioning biventricular ICD. Good pacing percentage. He does have an underlying rhythm which is quite slow. I increase the pacing rate to 80 bpm in order facilitate better cardiac output while we attempt diuresis. 5. Pleural effusion: Large. Likely related to his heart failure. He may benefit from thoracentesis. 6. Obstructive sleep apnea: Intolerant of BiPAP in the past. Using supplemental oxygen at nighttime. Likely contributes to his overall declining status. 7. Hypothyroidism: Longstanding. Last TSH was elevated. Free T4 was low. He likely require some additional supplementation. This may be playing a role in some of his symptoms. 8. Coronary disease: History of prior myocardial infarction percutaneous intervention to the LAD. Currently on secondary prevention to include apixaban, clopidogrel and high-dose atorvastatin. No recent symptoms suggestive of coronary insufficiency or angina. Biomarkers not indicative of a recent event. History of Present Illness Reason for Consultation: Shortness of breath, hypertension Requesting Physician: Adrianna Attending Physician: Kale Rodas History of Present Illness The patient is an 84-year-old gentleman with a history of an ischemic cardiomyopathy, associated congestive heart failure with reduced ejection fraction, coronary artery disease, aortic root dilation, atrial fibrillation and prior implantation of a biventricular ICD. Patient states that for a few weeks he has not been feeling well. He said some diffuse symptoms of fatigue and exercise intolerance. More recently his shortness of breath and activity intolerance has progressed to the point where he has trouble doing even activities of daily living. Getting up to walk to the bathroom is difficult. During our review today he had shortness of breath even eating his breakfast. He does monitor his blood pressure at home when he is feeling poorly. He notes that yesterday his systolic blood pressure was generally in the 70s. Due to his symptoms and low blood pressure he presented to the emergency room for evaluation. He has not been having symptoms of chest discomfort. He did not notice any recent palpitations. Dizziness has not been a prominent complaint. He does appear to have had some orthopnea manifest primarily by difficulty breathing lying flat and some chest discomfort when lying flat. He does monitor his weight at home and recently it has been approximately 145 pounds. He does not feel like this is a significant elevation. He has not taken any extra doses of his diuretic recently. He is unsure if he has had lower extremity edema. He does not appear to have a significant change in his diet but does eat out occasionally and the night prior to admission did eat at the [place] [employer] restaurant. Allergies Allergy/AdvReac Type Severity Reaction Status Date / Time lisinopril AdvReac Intermediate HYPOTENSION Verified 01/11/25 08:32 Home Medications Medication Instructions Recorded Confirmed Type biotin 5 mg tablet 5 mg PO DAILY 07/19/19 01/14/25 History apixaban 5 mg tablet (Eliquis) 5 mg PO Q12H #180 tabs 10/31/23 01/14/25 Rx metoprolol succinate 25 mg 25 mg PO DAILY #90 tabs 12/07/23 01/14/25 Rx tablet,extended release 24 hr ferrous sulfate 325 mg (65 mg 325 mg PO DAILY #90 tabs 01/13/24 01/14/25 Rx iron) tablet dapagliflozin propanediol 10 mg 10 mg PO DAILY #90 tabs 03/31/24 01/14/25 Rx tablet (Farxiga) pantoprazole 40 mg tablet,delayed 40 mg PO DAILY #90 tabs 04/01/24 01/14/25 Rx release nitroglycerin 0.4 mg sublingual 0.4 mg sublingual Q5M PRN Chest 04/04/24 01/14/25 History tablet Pain bumetanide 1 mg tablet 1 mg PO Q OTHER DAY #120 tabs 09/08/24 01/14/25 Rx tamsulosin 0.4 mg capsule 0.4 mg PO HS #90 caps 10/07/24 01/14/25 Rx clopidogrel 75 mg tablet 75 mg PO QAM #90 tabs 10/18/24 01/14/25 Rx atorvastatin 40 mg tablet 40 mg PO QPM #90 tabs 11/08/24 01/14/25 Rx potassium chloride 20 mEq 20 meq PO DAILY PRN Take with 12/19/24 01/14/25 Rx tablet,extended release bumetanide #90 tabs amiodarone 200 mg tablet 200 mg PO DAILY #90 tabs 12/28/24 01/14/25 Rx levothyroxine 50 mcg tablet 50 mcg PO DAILY #90 tabs 01/02/25 01/14/25 Rx Oxygen Home #1 ea 01/11/25 01/14/25 Rx Patient History Medical History 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 AICD at end of battery life Acute on chronic HFrEF (heart failure with reduced ejection fraction) Acute URI of multiple sites Abnormal urinary stream Chest pain Multiple fractures of ribs of both sides Thoracic compression fracture Laceration of ear, external, left, complicated Hernia Acute chest pain Near syncope Surgical History H/O rotator cuff surgery Previous back surgery Family History Brother Myocardial infarction Denies family history of Ovarian cancer Prostate cancer Breast cancer Colorectal cancer Social History Smoking Status: Never smoker Second Hand Exposure: No; Do You Dip or Chew Tobacco: No; Hx Alcohol Use: Yes Alcohol type: hard liquor Alcohol Intake Frequency: Monthly or Less Hx Substance Use: No Preferred Language: [place] Communication Ability: Effective Visual Impairment: Limited Hearing Ability: Use of Hearing Aid Appointment Manager Required: Yes and No Beliefs That Will Affect Care: None marital status: / Current Living Situation: Alone current occupational status: retired How many Children do You have: 2 Feels Safe at Home: Yes Childhood Exposure to Second-Hand Smoke: Yes Diet: regular caffeine: Yes during the past year weight has: remained stable Dental Care, Regularly: Yes Physical Activity Frequency: Daily Seatbelt Use: other (pt refused) Sunscreen Use: No Assistive Devices: Denture - Upper, Glasses, Hearing Aid - Bilateral and Oxygen - at Night Review of Systems Review of Systems: Per HPI Physical Exam Physical Exam: The patient is alert and oriented. Mood and affect appeared normal. He answered all questions appropriately. Marlon-Cage respiration HEENT: Pupils are equal and reactive to light and accommodation. Extraocular movements are intact. The sclerae are anicteric. Neuro: Cranial nerves intact Neck: Patient's neck is supple. He has palpable carotid pulses bilaterally without bruits on auscultation. There is no evidence of jugular venous distention. The thyroid is not enlarged. Lungs: Reduced breath sounds throughout the right lung field. Occasional crackle at the left base. No expiratory wheezing. Cardiac: Heart demonstrates a regular rate and rhythm. Normal S1 and S2. Holosystolic murmur Pulses: The patient has palpable radial pulses bilaterally that are equal in intensity Extremities: There was no evidence of hypoperfusion. There is no cyanosis or clubbing. Mild bilateral lower extremity edema Skin: I did not appreciate any rashes on examination today. Results & Data Vital Signs (Past 12 Hours) Vital Signs Temp Pulse Pulse Resp BP BP Pulse Ox 01/15/25 09:05 60 01/15/25 07:38 36.6 C 64 18 96/63 L 92 01/15/25 07:32 01/15/25 03:54 36.6 C 59 L 17 93/67 L 97 01/15/25 01:24 01/15/25 01:24 36.4 C L 80 19 83/57 L 96 01/15/25 01:17 01/15/25 01:03 88/68 L 97 01/15/25 00:45 61 22 100/67 99 01/15/25 00:39 65 20 88/69 L 91 01/15/25 00:15 61 23 98/63 L 95 01/14/25 23:00 62 23 86/67 L 90 01/14/25 22:50 60 18 89/69 L 96 01/14/25 22:30 60 18 87/61 L 98 01/14/25 22:19 97 01/14/25 22:04 60 18 105/80 97 01/14/25 21:59 97 01/14/25 21:58 70 01/14/25 21:47 36.8 C 79 18 81/58 L 94 O2 Del Method O2 Flow Rate 01/15/25 09:05 01/15/25 07:38 Room Air 01/15/25 07:32 Room Air 01/15/25 03:54 Nasal Cannula 1 01/15/25 01:24 Nasal Cannula 2 01/15/25 01:24 Nasal Cannula 2 01/15/25 01:17 Room Air 01/15/25 01:03 01/15/25 00:45 01/15/25 00:39 01/15/25 00:15 01/14/25 23:00 Room Air 01/14/25 22:50 Room Air 01/14/25 22:30 Room Air 01/14/25 22:19 Room Air 0 01/14/25 22:04 Room Air 01/14/25 21:59 Room Air 01/14/25 21:58 01/14/25 21:47 Room Air Laboratory Results Abnormal Lab Results 01/14/25 01/14/25 01/15/25 22:06 22:12 06:42 WBC 3.35 L 3.86 L RBC 3.64 L 3.52 L Hgb 12.1 L 11.7 L Hct 36.4 L 35.3 L MCV 100.0 100.3 H MCH 33.2 33.2 MCHC 33.2 33.1 RDW Std Deviation 61.5 H 61.2 H RDW Coeff of Arie 16.5 H 16.7 H Plt Count 71 L 65 L MPV 11.2 10.7 Immature Gran % (Auto) 0.0 Neut % (Auto) 46.9 Lymph % (Auto) 39.1 [place] % (Auto) 10.1 Eos % (Auto) 3.0 Baso % (Auto) 0.9 Neut # (Auto) 1.57 Lymph # (Auto) 1.31 [place] # (Auto) 0.34 Eos # (Auto) 0.10 Baso # (Auto) 0.03 Immature Gran # (Auto) 0.00 L PT 13.3 H INR 1.2 H APTT 33 H PTT Ratio 1.2 VBG pH 7.35 L VBG pCO2 58 H VBG pO2 < 20 VBG HCO3 32 VBG O2 Saturation < 60.0 VBG Base Excess 4.7 Sodium 136 138 Potassium 4.1 4.1 Chloride 100 104 Carbon Dioxide 31 31 Anion Gap 5 3 BUN 31 H 29 H Creatinine 1.56 H 1.31 Est Cr Clr Drug Dosing 32.7 38.5 eGFR 42.99 53.01 BUN/Creatinine Ratio 19.9 22.1 H Glucose 95 88 Lactate 1.4 Calcium 8.6 8.2 L Phosphorus 4.0 Magnesium 2.2 Total Bilirubin 1.4 H 1.2 H Direct Bilirubin 0.4 H 0.4 H AST 81 H 64 H ALT 17 16 Alkaline Phosphatase 73 65 Troponin I High Sens 17.2 B-Natriuretic Peptide 1554 H Total Protein 6.9 6.2 Albumin 3.9 3.5 Procalcitonin 0.03 Random Cortisol 10.63 Urine Color Urine Appearance Urine pH Ur Specific [place] Urine Protein Urine Glucose (UA) Urine Ketones Urine Blood Urine Nitrite Urine Bilirubin Urine Urobilinogen Ur Leukocyte Esterase Urine WBC (Auto) Urine RBC (Auto) U Hyaline Cast (Auto) U Epithel Cells (Auto) Urine Bacteria (Auto) Urine Comment Adenovirus (PCR) Not Detected B. pertussis DNA (PCR) Not Detected B.parapertussis DNA PCR Not Detected C. pneumoniae DNA (PCR) Not Detected Coronavirus OC43 (PCR) Not Detected Coronavirus HKU1 (PCR) Not Detected Coronavirus 229E (PCR) Not Detected SARS-CoV-2 (PCR) Not Detected Coronavirus NL63 (PCR) Not Detected Human Metapneumovir PCR Not Detected Influenza Type A (PCR) Not Detected Influenza Type B (PCR) Not Detected M. pneumoniae (PCR) Not Detected Parainfluenza 1 (PCR) Not Detected Parainfluenza 2 (PCR) Not Detected Parainfluenza 3 (PCR) Not Detected Parainfluenza 4 (PCR) Not Detected RSV (PCR) Not Detected Entero/Rhino (PCR) Not Detected 01/15/25 06:55 WBC RBC Hgb Hct MCV MCH MCHC RDW Std Deviation RDW Coeff of Arie Plt Count MPV Immature Gran % (Auto) Neut % (Auto) Lymph % (Auto) [place] % (Auto) Eos % (Auto) Baso % (Auto) Neut # (Auto) Lymph # (Auto) [place] # (Auto) Eos # (Auto) Baso # (Auto) Immature Gran # (Auto) PT INR APTT PTT Ratio VBG pH VBG pCO2 VBG pO2 VBG HCO3 VBG O2 Saturation VBG Base Excess Sodium Potassium Chloride Carbon Dioxide Anion Gap BUN Creatinine Est Cr Clr Drug Dosing eGFR BUN/Creatinine Ratio Glucose Lactate Calcium Phosphorus Magnesium Total Bilirubin Direct Bilirubin AST ALT Alkaline Phosphatase Troponin I High Sens B-Natriuretic Peptide Total Protein Albumin Procalcitonin Random Cortisol Urine Color Yellow Urine Appearance Clear Urine pH 5.0 Ur Specific [place] 1.026 Urine Protein Trace H Urine Glucose (UA) 3+ H Urine Ketones Negative Urine Blood Negative Urine Nitrite Negative Urine Bilirubin Negative Urine Urobilinogen Negative Ur Leukocyte Esterase Negative Urine WBC (Auto) 0-5 Urine RBC (Auto) 0-2 U Hyaline Cast (Auto) 0-2 U Epithel Cells (Auto) 0-2 Urine Bacteria (Auto) None Seen Urine Comment Adenovirus (PCR) B. pertussis DNA (PCR) B.parapertussis DNA PCR C. pneumoniae DNA (PCR) Coronavirus OC43 (PCR) Coronavirus HKU1 (PCR) Coronavirus 229E (PCR) SARS-CoV-2 (PCR) Coronavirus NL63 (PCR) Human Metapneumovir PCR Influenza Type A (PCR) Influenza Type B (PCR) M. pneumoniae (PCR) Parainfluenza 1 (PCR) Parainfluenza 2 (PCR) Parainfluenza 3 (PCR) Parainfluenza 4 (PCR) RSV (PCR) Entero/Rhino (PCR) Diagnostic Findings AMI, LAD LATISHA x3, staged distal LAD LATISHA, June 2014 Recent cardiac studies: 1. 03/30/2019 Echo: LV systolic function reduced. EF 20-25%. Multiple wall motion abnormalities. Mild MR. Mild TR. 2. 10/30/23 Lexiscan: No evidence of [place] 3. 03/10/24 Echo: LV systolic function severely reduced. EF 20-25%. Severe global hypokinesis. Moderate MR. Dilated ascending aorta 4.1 cm. 4. 08/30/24 Echo: LV systolic function is severely reduced. Severe global hypokinesis. EF 20-25%. Moderate MR. Mildly dilated ascending aorta 4.2 cm. I performed a complete device interrogation of his biventricular ICD. Normal device longevity. Good pacing percentage. No recent events or therapies. No recent arrhythmias. OptiVol elevated. PG Care Time/CCT Total # of Minutes Spent Total Time Spent with Patient: Total time spent is greater than 50% in coordination of care (as documented) at patient's floor/unit and/or counseling patient: Coding Level of Care Code 76637 INT INP/OBS CARE MIN Diagnoses Acute on chronic HFrEF (heart failure with reduced ejection fraction) I50.23 Pleural effusion J90 Biventricular ICD (implantable cardioverter-defibrillator) in place Z95.810 Paroxysmal atrial fibrillation I48.0 Cardiomyopathy, ischemic I25.5 CAD S/P percutaneous coronary angioplasty I25.10; Z98.61 Hypothyroidism E03.9 CPT Codes Implantable Defib Multi lead programming - [id number] ([id number]) 26 - PROFESSIONAL COMPONENT
--- NOTE | 2025-01-15 09:36 | XCELERA ---
[id number] \\[id number]
[2025-01-15] MEDS: BUMETANIDE 1 MG TAB PO SCH (09:51)
[2025-01-15] MEDS: AMIODARONE 200 MG TAB PO SCH (09:51)
[2025-01-15] MEDS: LEVOTHYROXINE SODIUM 50 MCG TABLET PO ONE (15:57)
--- NOTE | 2025-01-15 16:06 | Communication Note ---
Date of Service: January 15, 2025 84yo male with history of CAD, HFrEF secondary to ischemic cardiomyopathy with EF of 20-25%, PAF on Eliquis anticoagulation, Hypothyroidism presenting with hypotension. Suspect volume overload - elevated BNP, weight does seem to be increased from baseline. GAMALIEL appreciated on exam - has not been documented previously. His last echo in August did sow mild aortic sclerosis as well as moderate mitral regurgitation and tricuspid regurgitation. Possible worsening valvular heart disease, most likely mitral valve, contributing to hypotension, poor perfusion, pleural effusion? #Acute on chronic heart failure with reduced EFsuspect volume overload. Difficult as patient is hypotensive Admit to PCU Check 2D echo Continue Bumex 1 mg p.o. daily Oxygen as needed cardiology consultation appreciated -appreciate input from cardiology, will contiue PO meds, may consider thoracocenthesis on Thursday as last dose of Eliquis was on 01/15 PM #Pleural effusionpatient with worsening right-sided pleural effusion. Likely secondary to acute decompensated heart failure, possible worsening of valvular heart disease? Hold Eliquis for now Continue Bumex diuresis Closely monitor respiratory status Will likely need to have thoracentesis performed. Will be difficult to diurese the effusion given patient's tenuous blood pressure and compromised renal function #Elevated creatinine = 1.56. Last creatinine = 1.37 on 01/02/2025. Likely secondary to poor perfusion in setting of acute complicated heart failure Avoid nephrotoxic agents Renal dosing or needed Repeat chemistry in the morning #Coronary artery disease Continue aspirin, Plavix, atorvastatin #Atrial fibrillationrate controlled, patient anticoagulated on Eliquis Continue amiodarone 200 mg p.o. daily Hold beta-moraima due to low blood pressure Hold Eliquis for possible thoracentesis #Hypothyroidism Continue Synthroid
[2025-01-15] MEDS: ONDANSETRON INJ 2 MG/ML 2 ML VIAL IV PRN (20:46)
[2025-01-15] MEDS: ATORVASTATIN 40 MG TAB PO SCH (20:46)
[2025-01-15] MEDS: MELATONIN 3 MG TAB PO PRN (23:04)
[2025-01-15] MEDS: ALBUMIN 25% 25 GM/100 ML VIAL IV SCH (23:04)
[2025-01-16] MEDS: LEVOTHYROXINE SODIUM 100 MCG TABLET PO SCH (06:13)
[2025-01-16 06:48] LABS: Hematocrit (blood only) 31.3 % (42.0-52.0); Hemoglobin 10.8 g/dl (14.0-18.0); Mean Corpuscular Hemoglobin 34.2 pg (25.0-34.0); Mean Corpuscular Volume 99.1 fL (80.0-100.0); Platelet Count 66 K/uL (130-400); RDW Standard Deviation 61.0 fL (36.4-46.3); Red Blood Count 3.16 M/uL (4.70-6.10); White Blood Count 3.66 K/ul (4.8-10.8)
[2025-01-16 07:05] LABS: Anion Gap 6.0 (3-11); Blood Urea Nitrogen 30.0 mg/dl (6-23); Calcium 8.2 mg/dl (8.6-10.3); Carbon Dioxide 29.0 mmol/L (21-32); Chloride 102.0 mmol/L (98-107); Creatinine Clr Calc Pharmacy 35.3 ml/min; Glucose 84.0 mg/dl (70-99(Fasting)); Potassium 4.0 mmol/L (3.5-5.1); Sodium 137.0 mmol/L (136-145)
[2025-01-16] MEDS ORDERED: DOBUTamine 1000 MG/250ML D5W IV ONE (13:36)
[2025-01-16] MEDS: DOBUTamine / D5W 1,000 MG/250 ML BAG (Premixed) IV SCH (14:17)
--- NOTE | 2025-01-16 15:20 | Cardiology Progress Note ---
Date of Service January 16, 2025 Assessment & Plan (1) Acute on chronic HFrEF (heart failure with reduced ejection fraction): Plan: -The patient's progress is slow. -Would add dobutamine at 3 mcg/kg/min gtt. (2) Pleural effusion: Plan: -For thoracentesis tomorrow. (3) Biventricular ICD (implantable cardioverter-defibrillator) in place: Plan: -Per Dr. Barriga. (4) Paroxysmal atrial fibrillation: Plan: -Not recorded on his device currently. -Continue rhythm control and long-term anticoagulation. (5) Cardiomyopathy, ischemic: Plan: -Severe left ventricular dysfunction with ejection fraction of 15 to 20% currently. -Metoprolol succinate currently on hold due to relative hypotension. -Continue Farxiga and Bumex. (6) CAD S/P percutaneous coronary angioplasty: Plan: -AMI, LAD LATISHA x3, staged distal LAD LATISHA, June 2014. -Continue medical management. Admission and Anticipated Discharge Date Admission Date: January 15, 2025 Subjective The patient is resting comfortably at the bedside without complaints of chest pain or dyspnea. His daughter, Haley, is also present. Physical Exam Physical Exam: In general this is a well-developed well-nourished white male in no acute distress. HEENT exam is negative. Neck is supple with full carotid upstrokes. There are no carotid bruits. No JVD. No thyromegaly. Cardiovascular exam reveals a regular rhythm with distant heart sounds. No obvious murmurs. No S3. Chest reveals a palpable device in the left subclavicular region. Lungs are clear without rales, rhonchi or wheezes. Abdomen is soft and nontender without bruits. Extremities reveal intact radial artery pulses bilaterally. There is 1+ pretibial edema. Results & Data Vital Signs (Past 12 Hours) Vital Signs Temp Pulse Resp BP BP Pulse Ox O2 Del Method 01/16/25 14:08 86/60 L 85/61 L 01/16/25 11:01 36.2 C L 80 18 93/62 L 94 Room Air 01/16/25 08:00 Room Air 01/16/25 07:20 36.2 C L 88 18 95/64 L 98 Nasal Cannula 01/16/25 06:14 16 92/56 L 01/16/25 03:43 36.6 C 80 18 91/67 L 97 Nasal Cannula 01/16/25 02:13 80 16 96/55 L 97 Nasal Cannula O2 Flow Rate 01/16/25 14:08 01/16/25 11:01 01/16/25 08:00 01/16/25 07:20 2 01/16/25 06:14 01/16/25 03:43 2 01/16/25 02:13 2 Diagnostic Findings Telemetry monitoring is appropriate pacing. PG Care Time/CCT Total # of Minutes Spent Total Time Spent with Patient: Total time spent is greater than 50% in coordination of care (as documented) at patient's floor/unit and/or counseling patient: Coding Level of Care Code 00481 SUB INP/OBS CARE 3/50MIN Diagnoses Acute on chronic HFrEF (heart failure with reduced ejection fraction) I50.23 Pleural effusion J90 Biventricular ICD (implantable cardioverter-defibrillator) in place Z95.810 Paroxysmal atrial fibrillation I48.0 Cardiomyopathy, ischemic I25.5 CAD S/P percutaneous coronary angioplasty I25.10; Z98.61
--- NOTE | 2025-01-16 22:56 | Hospitalist Progress Note ---
Date of Service January 16, 2025 Assessment & Plan (1) Acute on chronic HFrEF (heart failure with reduced ejection fraction): (2) Pleural effusion: (3) CALEB (acute kidney injury): (4) CAD S/P percutaneous coronary angioplasty: (5) Paroxysmal atrial fibrillation: (6) Dyslipidemia: (7) Hypothyroidism: Plan: 84yo male with history of CAD, HFrEF secondary to ischemic cardiomyopathy with EF of 20-25%, PAF on Eliquis anticoagulation, Hypothyroidism presenting with hyp otension. Suspect volume overload - elevated BNP, weight does seem to be increased from baseline. GAMALIEL appreciated on exam - has not been documented previously. His last echo in August did sow mild aortic sclerosis as well as moderate mitral regurgitation and tricuspid regurgitation. Possible worsening valvular heart disease, most likely mitral valve, contributing to hypotension, poor perfusion, pleural effusion? #Acute on chronic heart failure with reduced EFsuspect volume overload. Difficult as patient is hypotensive Admit to PCU given limited response to BUmex and labile blood pressure, will placr on dobutamine drip and will transfer patient to the ICU. -will place patient on IV bumex and monitor. 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 Oxygen as needed -may consider thoracocenthesis on Thursday as last dose of Eliquis was on 01/15 PM #Pleural effusionpatient with worsening right-sided pleural effusion. Likely secondary to acute decompensated heart failure, possible worsening of valvular heart disease? Hold Eliquis for now Continue Bumex diuresis IV with dobutamine. Closely monitor respiratory status Will likely need to have thoracentesis performed. Will be difficult to diurese the effusion given patient's tenuous blood pressure and compromised renal function #Elevated creatinine = 1.56. Last creatinine = 1.37 on 01/02/2025. Likely secondary to poor perfusion in setting of acute complicated heart failure Avoid nephrotoxic agents Renal dosing or needed Repeat chemistry in the morning shows creat of 1.4 #Coronary artery disease Continue aspirin, Plavix, atorvastatin #Atrial fibrillationrate controlled, patient anticoagulated on Eliquis Continue amiodarone 200 mg p.o. daily Hold beta-moraima due to low blood pressure Hold Eliquis for possible thoracentesis #Hypothyroidism Continue Synthroid Updated daughter Admission and Anticipated Discharge Date Admission Date: January 15, 2025 Subjective Patient is resting comfortably. D/W nurse, urine output has been minimal after oral bumex. Physical Exam Physical Exam: General: patient resting comfortably, NAD, non-toxic in appearance, AA&O x 4 Skin: warm, dry, intact, no rashes or lesions HEENT: NC/AT, PERRL, EOMI, anicteric sclera, conjunctiva without injection, external ear normal to inspection and nontender, nares patent, moist mucus membranes, dentition intact, no oropharyngeal lesions, neck supple, trachea midline, no LAD, no thyromegaly, no JVD Heart: +S1/S2, regular, 4/6 GAMALIEL at Left Sternal border with radiation into the apex, AICD in place Lungs: equal air entry bilaterally, diminished breath sounds in the right lung field, crackles present at left base Abd: +BS, soft, NT/ND, no masses/organomegaly/ascites Ext: warm, 2+ pulses in UE/LE bilaterally, no clubbing/cyanosis, trace pitting edema of bilateral LE Neuro: nonfocal, patient AA&O x 4, speech intact, no facial droop, moving all extremities on command with equal strength 5/5 Results & Data Results & Data Vital Signs (Past 12 Hours) Vital Signs Temp Pulse Pulse Resp BP BP BP 01/16/25 22:30 83 24 96/64 L 01/16/25 22:06 80 23 99/71 L 01/16/25 21:30 80 18 103/72 01/16/25 21:00 80 19 97/68 L 01/16/25 20:30 80 17 97/70 L 01/16/25 20:00 36.7 C 80 20 92/71 L 01/16/25 20:00 01/16/25 19:45 80 20 97/72 L 01/16/25 19:30 82 20 93/70 L 01/16/25 19:15 80 20 93/71 L 01/16/25 19:00 80 19 93/72 L 01/16/25 18:51 80 21 01/16/25 18:45 96/72 L 01/16/25 18:30 81 20 88/65 L 01/16/25 18:06 81 29 H 89/64 L 01/16/25 18:00 89/64 L 01/16/25 17:45 80 19 91/73 L 01/16/25 17:33 79 20 94/71 L 01/16/25 17:12 80 20 94/71 L 01/16/25 17:00 80 27 H 94/68 L 01/16/25 16:45 84 35 H 94/68 L 01/16/25 16:33 80 19 104/66 01/16/25 16:15 80 25 H 01/16/25 16:00 80 17 101/77 01/16/25 15:48 80 17 01/16/25 15:45 99/78 L 01/16/25 15:39 80 21 01/16/25 15:33 01/16/25 15:18 80 21 01/16/25 15:15 88/69 L 01/16/25 14:54 81 25 H 01/16/25 14:28 91/59 L 01/16/25 14:08 86/60 L 85/61 L 01/16/25 11:01 36.2 C L 80 18 93/62 L Pulse Ox O2 Del Method O2 Flow Rate 01/16/25 22:30 98 Nasal Cannula 2 01/16/25 22:06 98 Nasal Cannula 2 01/16/25 21:30 98 Nasal Cannula 2 01/16/25 21:00 98 Nasal Cannula 2 01/16/25 20:30 97 Nasal Cannula 2 01/16/25 20:00 98 Nasal Cannula 2 01/16/25 20:00 Nasal Cannula 2 01/16/25 19:45 99 Nasal Cannula 2 01/16/25 19:30 99 Nasal Cannula 2 01/16/25 19:15 98 Nasal Cannula 2 01/16/25 19:00 98 Nasal Cannula 2 01/16/25 18:51 99 01/16/25 18:45 01/16/25 18:30 99 01/16/25 18:06 98 Nasal Cannula 2 01/16/25 18:00 01/16/25 17:45 98 01/16/25 17:33 99 01/16/25 17:12 99 01/16/25 17:00 98 01/16/25 16:45 96 01/16/25 16:33 96 01/16/25 16:15 95 01/16/25 16:00 94 01/16/25 15:48 91 Nasal Cannula 2 01/16/25 15:45 01/16/25 15:39 87 L Room Air 01/16/25 15:33 Nasal Cannula 2 01/16/25 15:18 93 01/16/25 15:15 01/16/25 14:54 94 01/16/25 14:28 01/16/25 14:08 01/16/25 11:01 94 Room Air PG Care Time/CCT Total # of Minutes Spent Total Time Spent with Patient: Total time spent is greater than 50% in coordination of care (as documented) at patient's floor/unit and/or counseling patient: Coding Level of Care Code 86182 SUB INP/OBS CARE 3/50MIN Diagnoses Acute on chronic HFrEF (heart failure with reduced ejection fraction) I50.23 Pleural effusion J90 CALEB (acute kidney injury) N17.9 CAD S/P percutaneous coronary angioplasty I25.10; Z98.61 Paroxysmal atrial fibrillation I48.0 Dyslipidemia E78.5 Hypothyroidism E03.9
--- NOTE | 2025-01-16 23:27 | Critical Care Consultation ---
Date of Consultation January 16, 2025 Assessment & Plan (1) Acute on chronic heart failure: (2) Pleural effusion: (3) CALEB (acute kidney injury): (4) Thrombocytopenia: Plan Reason Critically Ill: 84 YOM presents with acute heart failure exacerbation with reduced EF requiring inotropic support. 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 Patient has since been started on Dobutamine as well as diuresed. We w ill see how he appears from a volume status in the am. - Critical Care has little to offer currently as patient is being managed with medicine and cardiology in regards to his inotropic support and his diuretic therapy - Follow perfusion labs in morning with BMP, will add lactate level, and LFTS - Continue to hold his BB - For his PAF he has been maintained with amiodarone and apixaban- apixaban on hold in setting of possible thoracentesis for pleural effusion Respiratory - Mild hypoxia in setting of volume overload, RT sided Pleural Effusion - Noted on CT scan - Admitting service has already consulted IR for evaluation for possible drainage- as above continue to hold apixaban - diurese as able with noted borderline blood pressures GI - Elevated LFT - Likely in setting of volume overload, however also cognizant of amiodarone use. As this was mild elevation likely related to volume status - Follow in am RENAL/LYTES - CALEB, Hypocalcemia, - Follow daily BMPs, replete K, MG as able, check iCA in morning - avoid nephrotoxic agents as able and if needed minimize exposure time - No acute needs - Melendez currently in place- consider removal if patient is not limited by dyspnea and at risk with frequent urination in setting of diuresis ENDO - Hypothyroidism - Appears possibly linked to his amiodarone- continue Synthroid HEME - Pancytopenia, CLL - Low WBC and Platlet counts are chronic with hx of CLL and has delcined biopsy in the past per chart review. Has previously been diagnosed with Ariel and also stopped his iron replacement - His HGB level at this time is likely low secondary to dilution from volume status- no evidence at this time for bleeding, however will follow, platelet count stable ID - No concern at this time for infectious etiology LINES/IV ACCESS - Nora ARANDA Continue use of these lines DVT PROPHYLAXIS - SCDS, hold chemoprophylaxis until procedural evaluation completed- then restart apixaban or subq heparin in [place] of. DISPO: ICU while requiring inotropic support. WIll follow in morning and if no change or need for further hemodynamic support or respiratory support, critical care services will sign off I have personally spent 45 minutes of time in the direct management of this patient. This is a life/limb threatening event. This includes time spent evaluating patient, direct bedside care, chart review, placing orders, interpretation of diagnostic studies, discussion with consultants, patient, and family members, as well as other required patient management activities. This time is exclusive of all separately billable procedures, and separate from and in addition to any other time. Thank you for allowing us to participate in the care of this patient. Please refer to my attending physician's documentation for any further recommendations. History of Present Illness Reason for Consultation: Inotropic support concern for cardiorenal syndrome Requesting Physician: Kale Rodas Attending Physician: Kale Rodas History of Present Illness 84 YOM initally admitted on 01/15/25 just after midnight for complaints of feeling very tired and dyspneic. Patient has medical history of ICM with depr essed EF currently 15-20%, AICD, PAF, CAD with stents LAD x3 (2013), hypothyroidism. Patient was admitted with concern of acute exacerbation on chronic heart failure as he was noted to be hypotensive, have elated BNP, and CALEB. Today the patient was evaluated by cardiology on consultation and patient was initiated on Dobutamine infusion at 3mcg/kg/min as he was not diuresing much, remained hypotensive as well as elevation of his DEMAND GENERATOR MANAGER. Cardiology has also increased his AICD pacer rate to 80bpm as well and favored diursing with oral bumex with likley transition to IV if poor response as evident by his optivol sensor being elevated, increased weight, elevated BNP and current ECHO. ECHO reviewed which noted for severely reduced LV function, global hypokinesis of the left ventricle, decreased RV systolic function with elevated RVSP 30-40. Noted with moderate to severe mitral regurge and aortic valve sclerosis without significant aortic stenosis. TAPSE 1.2 cm. He was transferred to ICU for Dobutamine infusion around 1500 this afternoon. Critical Care was consulted this evening at 2255. Patient's chart reviewed. Has had more stable blood pressures with the initiation of Dobutamine it appears. Patient feels he has improved since getting some rest as well as less "foggy" after getting admitted and initiation of DOBUTamine. Patient is also noted to have PAF for which he is on low dose amiodarone on apixaban, as well as Large plueral effusion. His Eliquis has been held since admission on 01/15/25 with last dose likely being in the evening of 01/15/25. CODE: FULL Allergies Allergy/AdvReac Type Severity Reaction Status Date / Time lisinopril AdvReac Intermediate HYPOTENSION Verified 01/11/25 08:32 Home Medications Medication Instructions Recorded Confirmed Type biotin 5 mg tablet 5 mg PO DAILY 07/19/19 01/14/25 History apixaban 5 mg tablet (Eliquis) 5 mg PO Q12H #180 tabs 10/31/23 01/14/25 Rx metoprolol succinate 25 mg 25 mg PO DAILY #90 tabs 12/07/23 01/14/25 Rx tablet,extended release 24 hr ferrous sulfate 325 mg (65 mg 325 mg PO DAILY #90 tabs 01/13/24 01/14/25 Rx iron) tablet dapagliflozin propanediol 10 mg 10 mg PO DAILY #90 tabs 03/31/24 01/14/25 Rx tablet (Farxiga) pantoprazole 40 mg tablet,delayed 40 mg PO DAILY #90 tabs 04/01/24 01/14/25 Rx release nitroglycerin 0.4 mg sublingual 0.4 mg sublingual Q5M PRN Chest 04/04/24 01/14/25 History tablet Pain bumetanide 1 mg tablet 1 mg PO Q OTHER DAY #120 tabs 09/08/24 01/14/25 Rx tamsulosin 0.4 mg capsule 0.4 mg PO HS #90 caps 10/07/24 01/14/25 Rx clopidogrel 75 mg tablet 75 mg PO QAM #90 tabs 10/18/24 01/14/25 Rx atorvastatin 40 mg tablet 40 mg PO QPM #90 tabs 11/08/24 01/14/25 Rx potassium chloride 20 mEq 20 meq PO DAILY PRN Take with 12/19/24 01/14/25 Rx tablet,extended release bumetanide #90 tabs amiodarone 200 mg tablet 200 mg PO DAILY #90 tabs 12/28/24 01/14/25 Rx levothyroxine 50 mcg tablet 50 mcg PO DAILY #90 tabs 01/02/25 01/14/25 Rx Oxygen Home #1 ea 01/11/25 01/14/25 Rx Patient History Medical History 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 AICD at end of battery life Acute on chronic HFrEF (heart failure with reduced ejection fraction) Acute URI of multiple sites Abnormal urinary stream Chest pain Multiple fractures of ribs of both sides Thoracic compression fracture Laceration of ear, external, left, complicated Hernia Acute chest pain Near syncope Surgical History H/O rotator cuff surgery Previous back surgery Family History Brother Myocardial infarction Denies family history of Ovarian cancer Prostate cancer Breast cancer Colorectal cancer Social History Smoking Status: Never smoker Second Hand Exposure: No; Do You Dip or Chew Tobacco: No; Hx Alcohol Use: Yes Alcohol type: hard liquor Alcohol Intake Frequency: Monthly or Less Hx Substance Use: No Preferred Language: Icelandic Communication Ability: Effective Communication Tools: Letter Board, Picture Board, Facial Expression, Writing Tablet and Lip Movement/Reading Visual Impairment: Limited Hearing Ability: Use of Hearing Aid Project Administrative Assistant Required: Yes and No Beliefs That Will Affect Care: None marital status: / Current Living Situation: Alone current occupational status: retired How many Children do You have: 2 Feels Safe at Home: Yes Childhood Exposure to Second-Hand Smoke: Yes Diet: regular caffeine: Yes during the past year weight has: remained stable Dental Care, Regularly: Yes Physical Activity Frequency: Daily Seatbelt Use: other (pt refused) Sunscreen Use: No Assistive Devices: Cane and Walker Review of Systems Review of Systems: REVIEW OF SYSTEMS: Constitutional: (+) increase in fatigue, No fever, sweats or chills Eyes: No diplopia, no worsening or blurred vision ENT: normal hearing, no trouble swallowing Respiratory: (+) dyspnea, No cough, sputum, dyspnea at rest or on exertion Cardiovascular: No chest pain, tightness or palpitations Abdomen: No pain, nausea, vomiting, diarrhea or constipation Musculoskeletal: No joint pain, calf pain, swelling Neurologic: No weakness, numbness/tingling, or balance problems Psychiatric: No anxiety or depression Skin: No rash or itch Physical Exam Physical Exam: PHYSICAL EXAM: General: awake, alert, ENT: PERRL, EOMI, no pharyngeal exudate, mucous membranes moist Neuro: AAO x 3, speech clear and appropriate, strength intact bilaterally 5/5, sensation intact, no pronator drift Chest: equal rise and fall of the chest, no accessory muscle use, scattered crackles, decreased on right side, Cardiac: Regular rate and rhythm, telemetry reviewed- AV paced, skin warm dry, cap refill <3 seconds, peripheral pulses +2, mild JVD, 1+ edema tibial, Grade II systolic murmur LSB GI: NABS x 4 quadrants, soft, nontender to palpation, no rebound, guarding or tenderness : Melendez to gravity Psych: Normal mood and affect Results & Data Results & Data Vital Signs (Past 12 Hours) Vital Signs Temp Pulse Resp BP BP BP Pulse Ox 01/16/25 23:00 80 18 96/72 L 98 01/16/25 22:30 83 24 96/64 L 98 01/16/25 22:06 80 23 99/71 L 98 01/16/25 21:30 80 18 103/72 98 01/16/25 21:00 80 19 97/68 L 98 01/16/25 20:30 80 17 97/70 L 97 01/16/25 20:00 36.7 C 80 20 92/71 L 98 01/16/25 20:00 01/16/25 19:45 80 20 97/72 L 99 01/16/25 19:30 82 20 93/70 L 99 01/16/25 19:15 80 20 93/71 L 98 01/16/25 19:00 80 19 93/72 L 98 01/16/25 18:51 80 21 99 01/16/25 18:45 96/72 L 01/16/25 18:30 81 20 88/65 L 99 01/16/25 18:06 81 29 H 89/64 L 98 01/16/25 18:00 89/64 L 01/16/25 17:45 80 19 91/73 L 98 01/16/25 17:33 79 20 94/71 L 99 01/16/25 17:12 80 20 94/71 L 99 01/16/25 17:00 80 27 H 94/68 L 98 01/16/25 16:45 84 35 H 94/68 L 96 01/16/25 16:33 80 19 104/66 96 01/16/25 16:15 80 25 H 95 01/16/25 16:00 80 17 101/77 94 01/16/25 15:48 80 17 91 01/16/25 15:45 99/78 L 01/16/25 15:39 80 21 87 L 01/16/25 15:33 01/16/25 15:18 80 21 93 01/16/25 15:15 88/69 L 01/16/25 14:54 81 25 H 94 01/16/25 14:28 91/59 L 01/16/25 14:08 86/60 L 85/61 L O2 Del Method O2 Flow Rate 01/16/25 23:00 Nasal Cannula 2 01/16/25 22:30 Nasal Cannula 2 01/16/25 22:06 Nasal Cannula 2 01/16/25 21:30 Nasal Cannula 2 01/16/25 21:00 Nasal Cannula 2 01/16/25 20:30 Nasal Cannula 2 01/16/25 20:00 Nasal Cannula 2 01/16/25 20:00 Nasal Cannula 2 01/16/25 19:45 Nasal Cannula 2 01/16/25 19:30 Nasal Cannula 2 01/16/25 19:15 Nasal Cannula 2 01/16/25 19:00 Nasal Cannula 2 01/16/25 18:51 01/16/25 18:45 01/16/25 18:30 01/16/25 18:06 Nasal Cannula 2 01/16/25 18:00 01/16/25 17:45 01/16/25 17:33 01/16/25 17:12 01/16/25 17:00 01/16/25 16:45 01/16/25 16:33 01/16/25 16:15 01/16/25 16:00 01/16/25 15:48 Nasal Cannula 2 01/16/25 15:45 01/16/25 15:39 Room Air 01/16/25 15:33 Nasal Cannula 2 01/16/25 15:18 01/16/25 15:15 01/16/25 14:54 01/16/25 14:28 01/16/25 14:08 Laboratory Results Abnormal lab results 01/16/25 Range/Units 05:53 WBC 3.66 L (4.8-10.8) K/ul RBC 3.16 L (4.70-6.10) M/uL Hgb 10.8 L (14.0-18.0) g/dl Hct 31.3 L (42.0-52.0) % MCH 34.2 H (25.0-34.0) pg RDW Std Deviation 61.0 H (36.4-46.3) fL RDW Coeff of Arie 16.4 H (11.5-14.5) % Plt Count 66 L (130-400) K/uL BUN 30 H (6-23) mg/dl Creatinine 1.43 H (0.6-1.4) mg/dl BUN/Creatinine Ratio 21.0 H (10-20) Calcium 8.2 L (8.6-10.3) mg/dl B-Natriuretic Peptide 2473 H (0-100) pg/ml Diagnostic Findings Chest X-Ray 01/14/25 21:59 Exam(s): XR CXR 1 VIEW EXAM: XR Chest, 1 View CLINICAL HISTORY: Reason for exam: Sepsis. TECHNIQUE: Frontal view of the chest. COMPARISON: 12/04/2023 FINDINGS: Lungs: Hazy increased density in the right mid to lower brandt thorax with obscured diaphragm and costophrenic angle. No consolidation. Pleural space: Unremarkable. No pneumothorax. Heart: Unremarkable. No cardiomegaly. Mediastinum: Unremarkable. Normal mediastinal contour. Bones/joints: Gzhi-md-avggyenl osteophytosis of the mid to lower thoracic spine. No acute fracture. Vasculature: The aorta is mildly calcified and tortuous, unchanged. Tubes, lines and devices: The cardiac silhouette is mildly enlarged. There is a pacing device on the left with leads extending through the right side of the heart. Upper abdomen: Unremarkable as visualized. No pneumoperitoneum under the diaphragm. IMPRESSION: 1. Hazy increased density in the right mid to lower brandt thorax with obscured diaphragm and costophrenic angle. Consider pneumonia versus atelectasis with probable small right pleural effusion. This is new. 2. The cardiac silhouette is mildly enlarged. There is a pacing device on the left with leads extending through the right side of the heart. Electronically signed by: Rajan Wilkinson MD 01/15/25 00:37 AM Medications Administered Home Medications biotin 5 mg tablet 5 mg PO DAILY 07/19/19 [History Confirmed 01/14/25] apixaban 5 mg tablet (Eliquis) 5 mg PO Q12H #180 tabs 10/31/23 [Rx Confirmed 01/14/25] metoprolol succinate 25 mg tablet,extended release 24 hr 25 mg PO DAILY #90 tabs 12/07/23 [Rx Confirmed 01/14/25] ferrous sulfate 325 mg (65 mg iron) tablet 325 mg PO DAILY #90 tabs 01/13/24 [Rx Confirmed 01/14/25] dapagliflozin propanediol 10 mg tablet (Farxiga) 10 mg PO DAILY #90 tabs 03/31/24 [Rx Confirmed 01/14/25] pantoprazole 40 mg tablet,delayed release 40 mg PO DAILY #90 tabs 04/01/24 [Rx Confirmed 01/14/25] nitroglycerin 0.4 mg sublingual tablet 0.4 mg sublingual Q5M PRN Chest Pain 04/04/24 [History Confirmed 01/14/25] bumetanide 1 mg tablet 1 mg PO Q OTHER DAY #120 tabs 09/08/24 [Rx Confirmed 01/14/25] tamsulosin 0.4 mg capsule 0.4 mg PO HS #90 caps 10/07/24 [Rx Confirmed 01/14/25] clopidogrel 75 mg tablet 75 mg PO QAM #90 tabs 10/18/24 [Rx Confirmed 01/14/25] atorvastatin 40 mg tablet 40 mg PO QPM #90 tabs 11/08/24 [Rx Confirmed 01/14/25] potassium chloride 20 mEq tablet,extended release 20 meq PO DAILY PRN Take with bumetanide #90 tabs 12/19/24 [Rx Confirmed 01/14/25] amiodarone 200 mg tablet 200 mg PO DAILY #90 tabs 12/28/24 [Rx Confirmed 01/14/25] levothyroxine 50 mcg tablet 50 mcg PO DAILY #90 tabs 01/02/25 [Rx Confirmed 0 01/14/25] Oxygen Home #1 ea 01/11/25 [Rx Confirmed 01/14/25] Active Medications Acetaminophen (Acetaminophen 325 Mg Tab) 650 mg PO Q4H PRN PRN Reason: Pain or Fever Stop: 02/14/25 01:15 Amiodarone HCl (Amiodarone 200 Mg Tab) 200 mg PO DAILY [facility] Stop: 02/14/25 08:59 Last Admin: 01/16/25 08:22 Dose: 200 mg Atorvastatin Calcium (Atorvastatin 40 Mg Tab) 40 mg PO QPM [facility] Stop: 02/14/25 20:59 Last Admin: 01/16/25 20:59 Dose: 40 mg Bumetanide (Bumetanide 1 Mg Tab) 1 mg PO DAILY [facility] Stop: 02/14/25 08:59 Last Admin: 01/16/25 08:22 Dose: 1 mg Clopidogrel Bisulfate (Clopidogrel Bisulfate 75 Mg Tab) 75 mg PO QAM [facility] Stop: 02/14/25 08:59 Last Admin: 01/16/25 11:52 Dose: 75 mg Dapagliflozin (Dapagliflozin (Farxiga) 10 Mg Tab) 10 mg PO DAILY [facility] Stop: 02/15/25 08:59 Last Admin: 01/16/25 08:21 Dose: 10 mg Dobutamine HCl/Dextrose () 1,000 mg in 250 mls @ 3.11 mls/hr IV .Q24H [facility]; Protocol Stop: 02/15/25 13:59 Last Admin: 01/16/25 14:17 Dose: 3 mcg/kg/min, 3.1 mls/hr Levothyroxine Sodium (Levothyroxine Sodium 100 Mcg Tablet) 100 mcg PO DAILYBB [facility] Stop: 02/15/25 06:29 Last Admin: 01/16/25 06:13 Dose: 100 mcg Melatonin (Melatonin 3 Mg Tab) 3 mg PO HS PRN PRN Reason: Sleep Stop: 02/14/25 22:55 Last Admin: 01/15/25 23:04 Dose: 3 mg Ondansetron HCl (Ondansetron Inj 2 Mg/Ml 2 Ml Vial) 4 mg IV Q6H PRN PRN Reason: Nausea And Vomiting Stop: 02/14/25 01:15 Last Admin: 01/15/25 20:46 Dose: 4 mg Pantoprazole Sodium (Pantoprazole 40 Mg Tab) 40 mg PO DAILY [facility] Stop: 02/14/25 08:59 Last Admin: 01/16/25 08:22 Dose: 40 mg Coding Level of Care Code 47218 IN/OBS CONSULT LVL 3,45M Diagnoses Acute on chronic heart failure I50.9 Pleural effusion J90 CALEB (acute kidney injury) N17.9 Thrombocytopenia D69.6
[2025-01-16] MEDS: BUMETANIDE 1 MG in SYRINGE 0 ML IV ONE (23:35)
[2025-01-17 04:30] LABS: Hematocrit (blood only) 32.1 % (42.0-52.0); Hemoglobin 11.3 g/dl (14.0-18.0); Immature Granulocytes # (auto) 0.01 K/uL (0.01-0.20); Immature Granulocytes % (auto) 0.3 %; Mean Corpuscular Hemoglobin 34.5 pg (25.0-34.0); Mean Corpuscular Volume 97.9 fL (80.0-100.0); Platelet Count 68 K/uL (130-400); RDW Standard Deviation 60.3 fL (36.4-46.3); Red Blood Count 3.28 M/uL (4.70-6.10); White Blood Count 3.74 K/ul (4.8-10.8)
[2025-01-17 04:42] LABS: Alanine Aminotransferase 22.0 U/L (7-52); Alkaline Phosphatase 75.0 U/L (34-104); Anion Gap 8.0 (3-11); Bilirubin,Total 1.6 mg/dl (0.2-1.0); Blood Urea Nitrogen 27.0 mg/dl (6-23); Calcium 8.3 mg/dl (8.6-10.3); Carbon Dioxide 29.0 mmol/L (21-32); Chloride 101.0 mmol/L (98-107); Creatinine Clr Calc Pharmacy 40.8 ml/min; Glucose 79.0 mg/dl (70-99(Fasting)); Magnesium 2.2 mg/dl (1.7-2.4); Potassium 3.5 mmol/L (3.5-5.1); Sodium 138.0 mmol/L (136-145); Total Protein 6.0 gm/dl (6.0-8.3)
[2025-01-17] MEDS: POTASSIUM CHLORIDE CRTAB 20 MEQ TABCR PO STA (07:44)
[2025-01-17] MEDS: CALCIUM GLUCONATE 1,000 MG/60 ML BAG IV SCH (07:47)
[2025-01-17] MEDS: POTASSIUM CHLORIDE / WTR 10 MEQ/100 ML PLCT IV SCH (07:47)
--- NOTE | 2025-01-17 10:02 | Cardiology Progress Note ---
Date of Service January 17, 2025 Assessment & Plan (1) Acute on chronic HFrEF (heart failure with reduced ejection fraction): Plan: -Tolerating dobutamine at 3 mcg/kg/min gtt. -Consider changing Bumex to IV dosing. (2) Pleural effusion: Plan: -For thoracentesis today. (3) Biventricular ICD (implantable cardioverter-defibrillator) in place: Plan: -Per Dr. Barriga. (4) Paroxysmal atrial fibrillation: Plan: -Not recorded on his device currently. -Continue rhythm control and long-term anticoagulation. (5) Cardiomyopathy, ischemic: Plan: -Severe left ventricular dysfunction with ejection fraction of 15 to 20% currently. -Metoprolol succinate currently on hold due to relative hypotension. -Continue Farxiga and Bumex. (6) CAD S/P percutaneous coronary angioplasty: Plan: -AMI, LAD LATISHA x3, staged distal LAD LATISHA, June 2014. -Continue medical management. Admission and Anticipated Discharge Date Admission Date: January 15, 2025 Subjective The patient is resting comfortably in bed without complaints of chest pain or dyspnea. His daughter is at the bedside. Physical Exam Physical Exam: In general this is a well-developed well-nourished white male in no acute distress. HEENT exam is negative. Neck is supple with full carotid upstrokes. There are no carotid bruits. No JVD. No thyromegaly. Cardiovascular exam reveals a regular rhythm with distant heart sounds. No obvious murmurs. No S3. Chest reveals a palpable device in the left subclavicular region. Lungs are clear without rales, rhonchi or wheezes. Abdomen is soft and nontender without bruits. Extremities reveal intact radial artery pulses bilaterally. There is 1+ pedal edema. Results & Data Vital Signs (Past 12 Hours) Vital Signs Temp Pulse Pulse Resp BP BP Pulse Ox 01/17/25 07:40 01/17/25 06:00 80 16 90/56 L 99 01/17/25 05:30 80 20 92/65 L 96 01/17/25 05:00 80 19 97/68 L 96 01/17/25 04:30 80 20 98/64 L 96 01/17/25 04:00 36.7 C 80 19 98/67 L 97 01/17/25 03:30 80 20 90/63 L 96 01/17/25 03:00 80 18 92/68 L 95 01/17/25 02:30 80 16 97/64 L 95 01/17/25 02:00 80 18 90/67 L 94 01/17/25 01:30 80 17 95/70 L 98 01/17/25 01:00 80 15 93/62 L 95 01/17/25 00:30 82 17 98/72 L 97 01/17/25 00:00 36.5 C 80 18 95/69 L 97 01/16/25 23:30 80 20 92/72 L 98 01/16/25 23:00 80 18 96/72 L 98 01/16/25 22:30 83 24 96/64 L 98 01/16/25 22:06 80 23 99/71 L 98 O2 Del Method O2 Flow Rate 01/17/25 07:40 Nasal Cannula 2 01/17/25 06:00 Nasal Cannula 2 01/17/25 05:30 Nasal Cannula 2 01/17/25 05:00 Nasal Cannula 2 01/17/25 04:30 Nasal Cannula 2 01/17/25 04:00 Nasal Cannula 2 01/17/25 03:30 Nasal Cannula 2 01/17/25 03:00 Nasal Cannula 2 01/17/25 02:30 Nasal Cannula 2 01/17/25 02:00 Nasal Cannula 2 01/17/25 01:30 Nasal Cannula 2 01/17/25 01:00 Nasal Cannula 2 01/17/25 00:30 Nasal Cannula 2 01/17/25 00:00 Nasal Cannula 2 01/16/25 23:30 Nasal Cannula 2 01/16/25 23:00 Nasal Cannula 2 01/16/25 22:30 Nasal Cannula 2 01/16/25 22:06 Nasal Cannula 2 Diagnostic Findings shelter monitor notes appropriate pacing. PG Care Time/CCT Total # of Minutes Spent Total Time Spent with Patient: Total time spent is greater than 50% in coordination of care (as documented) at patient's floor/unit and/or counseling patient: Coding Level of Care Code 55323 SUB INP/OBS CARE 3/50MIN Diagnoses Acute on chronic HFrEF (heart failure with reduced ejection fraction) I50.23 Pleural effusion J90 Biventricular ICD (implantable cardioverter-defibrillator) in place Z95.810 Paroxysmal atrial fibrillation I48.0 Cardiomyopathy, ischemic I25.5 CAD S/P percutaneous coronary angioplasty I25.10; Z98.61
--- NOTE | 2025-01-17 10:36 | Electrocardiogram Report ---
Test Reason : Blood Pressure : */* mmHG Vent. Rate : 69 BPM Atrial Rate : 64 BPM P-R Int : 164 ms QRS Dur : 172 ms QT Int : 526 ms P-R-T Axes : 119 -61 121 degrees QTcB Int : 563 ms AV dual-paced rhythm with frequent ventricular-paced complexes Abnormal ECG When compared with ECG of 04-Dec-2023 11:28, Vent. rate has increased by 9 bpm Confirmed by Johny Aceves ([id number]) on 01/17/2025 10:35:45 AM Referred By: REFERRED SELF Confirmed By: Johny Aceves
--- NOTE | 2025-01-17 12:24 | Critical Care Progress Note ---
Date of Service January 17, 2025 Assessment & Plan (1) Acute on chronic heart failure: (2) Pleural effusion: (3) CALEB (acute kidney injury): Plan Reason Critically Ill: 84 YOM presents with acute heart failure exacerbation with reduced EF requiring inotropic support. Neuro - No acute needs CAM ICU: NEGATIVE - Attempt to maintain normal sleep wake cycles, frequent re-orientation hopeful to avoid ICU delirium Cardiac - Acute heart failure exacerbation in reduced EF with ischemic cardiomyopathy, volume overload, shock - cardiogenic - Concern for cardiorenal syndrome - Critical Care has little to offer currently as patient is being managed with medicine and cardiology in regards to his inotropic support and his diuretic therapy - Follow perfusion labs in morning with BMP, will add lactate level, and LFTS - Continue to hold his BB - For his PAF he has been maintained with amiodarone and apixaban- apixaban on hold in setting of possible thoracentesis for pleural effusion Respiratory - Mild hypoxia in setting of volume overload, RT sided Pleural Effusion - Noted on CT scan - Admitting service has already consulted IR for evaluation for possible drainage- as above continue to hold apixaban - diurese as able with noted borderline blood pressures GI - Elevated LFT - Likely in setting of volume overload, however also cognizant of amiodarone use. As this was mild elevation likely related to volume status RENAL/LYTES - CALEB, Hypocalcemia, - Follow daily BMPs, replete K, MG as able, check iCA in morning - avoid nephrotoxic agents as able and if needed minimize exposure time - No acute needs - Melendez currently in place- consider removal if patient is not limited by dyspnea and at risk with frequent urination in setting of diuresis ENDO - Hypothyroidism - Appears possibly linked to his amiodarone- continue Synthroid HEME - Pancytopenia, CLL - Low WBC and Platlet counts are chronic with hx of CLL and has delcined biopsy in the past per chart review. Has previously been diagnosed with Ariel and also stopped his iron replacement - His HGB level at this time is likely low secondary to dilution from volume status- no evidence at this time for bleeding, however will follow, platelet count stable ID - No concern at this time for infectious etiology LINES/IV ACCESS - PIV, Melendez Continue use of these lines DVT PROPHYLAXIS - SCDS, hold chemoprophylaxis until procedural evaluation completed- then restart apixaban or subq heparin in [place] of. DISPO: ICU while requiring inotropic support. Care has been initiated by primary and consulting services no additional input at this time. Critical care will sign off. Please call for any particular questions or needs. Admission and Anticipated Discharge Date Admission Date: January 15, 2025 Subjective No overnight events per nursing staff care being managed by cardiology and hospital medicine. Results & Data Results & Data Vital Signs (Past 12 Hours) Vital Signs Temp Pulse Pulse Resp BP BP Pulse Ox 01/17/25 07:40 01/17/25 06:00 80 16 90/56 L 99 01/17/25 05:30 80 20 92/65 L 96 01/17/25 05:00 80 19 97/68 L 96 01/17/25 04:30 80 20 98/64 L 96 01/17/25 04:00 36.7 C 80 19 98/67 L 97 01/17/25 03:30 80 20 90/63 L 96 01/17/25 03:00 80 18 92/68 L 95 01/17/25 02:30 80 16 97/64 L 95 01/17/25 02:00 80 18 90/67 L 94 01/17/25 01:30 80 17 95/70 L 98 01/17/25 01:00 80 15 93/62 L 95 01/17/25 00:30 82 17 98/72 L 97 O2 Del Method O2 Flow Rate 01/17/25 07:40 Nasal Cannula 2 01/17/25 06:00 Nasal Cannula 2 01/17/25 05:30 Nasal Cannula 2 01/17/25 05:00 Nasal Cannula 2 01/17/25 04:30 Nasal Cannula 2 01/17/25 04:00 Nasal Cannula 2 01/17/25 03:30 Nasal Cannula 2 01/17/25 03:00 Nasal Cannula 2 01/17/25 02:30 Nasal Cannula 2 01/17/25 02:00 Nasal Cannula 2 01/17/25 01:30 Nasal Cannula 2 01/17/25 01:00 Nasal Cannula 2 01/17/25 00:30 Nasal Cannula 2 Critical Care Results & Data Vital Signs (Past 12 Hours) Vital Signs Temp Pulse Pulse Resp BP BP Pulse Ox 01/17/25 07:40 01/17/25 06:00 80 16 90/56 L 99 01/17/25 05:30 80 20 92/65 L 96 01/17/25 05:00 80 19 97/68 L 96 01/17/25 04:30 80 20 98/64 L 96 01/17/25 04:00 36.7 C 80 19 98/67 L 97 01/17/25 03:30 80 20 90/63 L 96 01/17/25 03:00 80 18 92/68 L 95 01/17/25 02:30 80 16 97/64 L 95 01/17/25 02:00 80 18 90/67 L 94 01/17/25 01:30 80 17 95/70 L 98 01/17/25 01:00 80 15 93/62 L 95 01/17/25 00:30 82 17 98/72 L 97 O2 Del Method O2 Flow Rate 01/17/25 07:40 Nasal Cannula 2 01/17/25 06:00 Nasal Cannula 2 01/17/25 05:30 Nasal Cannula 2 01/17/25 05:00 Nasal Cannula 2 01/17/25 04:30 Nasal Cannula 2 01/17/25 04:00 Nasal Cannula 2 01/17/25 03:30 Nasal Cannula 2 01/17/25 03:00 Nasal Cannula 2 01/17/25 02:30 Nasal Cannula 2 01/17/25 02:00 Nasal Cannula 2 01/17/25 01:30 Nasal Cannula 2 01/17/25 01:00 Nasal Cannula 2 01/17/25 00:30 Nasal Cannula 2 Lab & Micro Results (Past 24 Hours) RBC 3.28 M/uL (4.70-6.10) L 01/17/25 WBC 3.74 K/ul (4.8-10.8) L 01/17/25 Hgb 11.3 g/dl (14.0-18.0) L 01/17/25 Hct 32.1 % (42.0-52.0) L 01/17/25 MCV 97.9 fL (80.0-100.0) 01/17/25 MCH 34.5 pg (25.0-34.0) H 01/17/25 MCHC 35.2 g/dL (32.0-36.0) 01/17/25 RDW Standard Deviation 60.3 fL (36.4-46.3) H 01/17/25 RDW Coefficient of Variation 16.5 % (11.5-14.5) H 01/17/25 Plt Count 68 K/uL (130-400) L 01/17/25 MPV 10.6 fL (9.4-12.4) 01/17/25 Neutrophils (%) (Auto) 55.6 % 01/17/25 Lymphocytes (%) (Auto) 30.2 % 01/17/25 Monocytes # (Auto) 0.41 K/uL (0.11-0.59) 01/17/25 Eosinophils # (Auto) 0.08 K/uL (0.00-0.50) 01/17/25 Immature Granulocyte % (Auto) 0.3 % 01/17/25 Neutrophils # (Auto) 2.08 K/uL (1.40-6.50) 01/17/25 Lymphocytes # (Auto) 1.13 K/uL (1.20-3.40) L 01/17/25 Monocytes # (Auto) 0.41 K/uL (0.11-0.59) 01/17/25 Eosinophils # (Auto) 0.08 K/uL (0.00-0.50) 01/17/25 Basophils # (Auto) 0.03 K/uL (0.00-0.20) 01/17/25 Immature Granulocyte # (Auto) 0.01 K/uL (0.01-0.20) 5 Na 138 mmol/L (136-145) 01/17/25 K 3.5 mmol/L (3.5-5.1) 01/17/25 Cl 101 mmol/L (98-107) 01/17/25 CO2 29 mmol/L (21-32) 01/17/25 Anion Gap 8 (3-11) 01/17/25 BUN 27 mg/dl (6-23) H 01/17/25 Creatinine 1.30 mg/dl (0.6-1.4) 01/17/25 BUN/Creatinine Ratio 20.8 (10-20) H 01/17/25 Glu 79 mg/dl (70-99(Fasting)) 01/17/25 Ca 8.3 mg/dl (8.6-10.3) L 01/17/25 Phosphorus Level 3.3 mg/dl (2.5-4.9) 01/17/25 Total Bilirubin 1.6 mg/dl (0.2-1.0) H 01/17/25 Direct Bilirubin 0.4 mg/dl (0-0.2) H 01/17/25 AST 69 U/L (13-39) H 01/17/25 ALT 22 U/L (7-52) 01/17/25 Alkaline Phosphatase 75 U/L (34-104) 01/17/25 TP 6.0 gm/dl (6.0-8.3) 01/17/25 Albumin 3.2 gm/dl (3.4-5.0) L 01/17/25 Mg 2.2 mg/dl (1.7-2.4) 01/17/25 04:01 Calcium Level 8.3 mg/dl (8.6-10.3) L 01/17/25 04:01 Ionized Calcium 1.08 mmol/L (1.12-1.32) L 01/17/25 04:01 Microbiology 01/14/25 22:30 Aerobic Blood Culture - Preliminary Blood No growth in Aerobic bottle after 48 hours. Anaerobic Blood Culture - Preliminary No growth in Anaerobic bottle after 48 hours. 01/14/25 22:06 Aerobic Blood Culture - Preliminary Blood No growth in Aerobic bottle after 48 hours. Anaerobic Blood Culture - Preliminary No growth in Anaerobic bottle after 48 hours. I & O Totals 24 Hours 01/16/25 01/17/25 01/18/25 06:59 06:59 06:59 Intake Total 1060 / 1060 1010 / 1010 176.977 / 176.977 Output Total 200 / 200 2850 / 2850 Balance 860 / 860 -1840 / -1840 176.977 / 176.977 Cumulative 01/14/25 21:45 thru 01/17/25 08:26 Intake Total 3891.977 Output Total 3250 Balance 641.977 RT Ventilator Mngmt (Last Documented) Ventilator Ordered Settings Respiratory Rate 16 01/17/25 06:00 Ventilator - PT Measurements Respiratory Rate 16 Coding Level of Care Code 76851 SUB INP/OBS CARE 08/13MIN Diagnoses Acute on chronic heart failure I50.9 Pleural effusion J90 CALEB (acute kidney injury) N17.9
--- NOTE | 2025-01-17 13:55 | Ultrasound Report ---
ULTRASOUND-GUIDED RIGHT THORACENTESIS CLINICAL HISTORY: Large right pleural effusion PROCEDURE: Procedure and risks were explained. Informed consent was obtained. A final timeout was com pleted. The right posterior thorax was prepped and draped in sterile fashion. 1% lidocaine was utiliz ed for skin anesthesia. Utilizing ultrasound guidance, a 5 [place] safety centesis catheter was advanced into the right pleura l effusion. Ultrasound images were obtained. A total of 1500 mL of salgado pleural fluid was removed a nd sent to the lab. The catheter was removed and Band-Aid applied. The patient tolerated the procedur e well. A chest x-ray will be obtained post procedure. Vital signs will be monitored postprocedure. IMPRESSION: Ultrasound-guided right thoracentesis as above. Large right pleural effusion remains. Performed, dictated, and signed by Angelo Xavier PA-C; to be co-signed by Dr. Charli Peng. Electronically signed by: Charli Peng M.D. 01/17/2025 2:16 PM
--- NOTE | 2025-01-17 14:09 | XRay Report ---
XR chest 1V portable CLINICAL HISTORY: s/p rt thora COMPARISON STUDY: 01/14/2025 FINDINGS: Stable pacemaker. Stable cardiomegaly with mild pulmonary vascular congestion. There is a s mall right pleural effusion, improved. No pneumothorax. IMPRESSION: No pneumothorax. ACT 112: Negative or not required by law. Electronically signed by: Charli Peng M.D. 01/17/2025 2:07 PM
[2025-01-17] MEDS: BUMETANIDE 1 MG in SYRINGE 0 ML IV ONE (16:44)
--- NOTE | 2025-01-17 23:22 | Hospitalist Progress Note ---
Date of Service January 17, 2025 Assessment & Plan (1) Acute on chronic HFrEF (heart failure with reduced ejection fraction): (2) Pleural effusion: (3) CALEB (acute kidney injury): (4) CAD S/P percutaneous coronary angioplasty: (5) Paroxysmal atrial fibrillation: (6) Dyslipidemia: (7) Hypothyroidism: Plan: 84yo male with history of CAD, HFrEF secondary to ischemic cardiomyopathy with EF of 20-25%, PAF on Eliquis anticoagulation, Hypothyroidism presenting with hypotension. Suspect volume overload - elevated BNP, weight does seem to be increased from baseline. GAMALIEL appreciated on exam - has not been documented previously. His last echo in August did sow mild aortic sclerosis as well as moderate mitral regurgitation and tricuspid regurgitation. Possible worsening valvular heart disease, most likely mitral valve, contributing to hypotension, poor perfusion, pleural effusion? #Acute on chronic heart failure with reduced EFsuspect volume overload. 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 Oxygen as needed - thoracocenthesis completed on 01/17: 1500 ml of fluid was removed. #Pleural effusionpatient with worsening right-sided pleural effusion. Likely secondary to acute decompensated heart failure, possible worsening of valvular heart disease? Hold Eliquis for now Continue Bumex diuresis IV with dobutamine. Closely monitor respiratory status difficult to diurese the effusion given patient's tenuous blood pressure and compromised renal function -thoracocenthesis as above #Elevated creatinine = 1.56. Last creatinine = 1.37 on 01/02/2025. Likely secondary to poor perfusion in setting of acute complicated heart failure Avoid nephrotoxic agents Renal dosing or needed Repeat chemistry in the morning shows creat of 1.3 #Coronary artery disease Continue aspirin, Plavix, atorvastatin #Atrial fibrillationrate controlled, patient anticoagulated on Eliquis Continue amiodarone 200 mg p.o. daily Hold beta-moraima due to low blood pressure Hold Eliquis for thoracentesis, will resume 01/18 #Hypothyroidism Continue Synthroid Updated daughter Possible discharge tomorrow or in 2 days Admission and Anticipated Discharge Date Admission Date: January 15, 2025 Subjective Patient reports feeling well. He has no new complaints Physical Exam Physical Exam: General: patient resting comfortably, NAD, non-toxic in appearance, AA&O x 4 Skin: warm, dry, intact, no rashes or lesions HEENT: NC/AT, PERRL, EOMI Heart: +S1/S2, regular, 4/6 GAMALIEL at Left Sternal border with radiation into the apex, AICD in place Lungs: improved breath sounds Abd: +BS, soft, NT/ND, no masses/organomegaly/ascites Ext: warm, 2+ pulses in UE/LE bilaterally, no clubbing/cyanosis, Neuro: nonfocal, patient AA&O x 4 Results & Data Results & Data Vital Signs (Past 12 Hours) Vital Signs Temp Pulse Resp BP Pulse Ox O2 Del Method O2 Flow Rate 01/17/25 19:50 Nasal Cannula 2 01/17/25 16:06 80 14 94 Nasal Cannula 2 01/17/25 16:00 36.6 C 01/17/25 15:33 80 14 98 01/17/25 15:30 94/68 L 01/17/25 15:30 94/68 L 01/17/25 15:30 94/68 L 01/17/25 15:06 86 22 98 01/17/25 15:00 91/64 L 01/17/25 14:52 84/62 L 01/17/25 14:45 80 18 98 01/17/25 14:06 80 16 97 01/17/25 13:51 82 18 99 01/17/25 13:00 80 18 98 01/17/25 13:00 87/67 L 01/17/25 13:00 87/67 L 01/17/25 13:00 87/67 L 01/17/25 12:33 80 19 98 01/17/25 12:30 89/63 L 01/17/25 12:30 89/63 L 01/17/25 12:24 82 26 H 98 01/17/25 12:00 91/67 L 01/17/25 12:00 91/67 L 01/17/25 12:00 81 18 93 Nasal Cannula 2 01/17/25 11:39 81 28 H 93 01/17/25 11:35 36.5 C PG Care Time/CCT Total # of Minutes Spent Total Time Spent with Patient: Total time spent is greater than 50% in coordination of care (as documented) at patient's floor/unit and/or counseling patient: Coding Level of Care Code 55062 SUB INP/OBS CARE 50MIN Diagnoses Acute on chronic HFrEF (heart failure with reduced ejection fraction) I50.23 Pleural effusion J90 CALEB (acute kidney injury) N17.9 CAD S/P percutaneous coronary angioplasty I25.10; Z98.61 Paroxysmal atrial fibrillation I48.0 Dyslipidemia E78.5 Hypothyroidism E03.9
[2025-01-18 04:49] LABS: Hematocrit (blood only) 32.7 % (42.0-52.0); Hemoglobin 11.3 g/dl (14.0-18.0); Immature Granulocytes # (auto) 0.01 K/uL (0.01-0.20); Immature Granulocytes % (auto) 0.2 %; Mean Corpuscular Hemoglobin 33.9 pg (25.0-34.0); Mean Corpuscular Volume 98.2 fL (80.0-100.0); Platelet Count 66 K/uL (130-400); RDW Standard Deviation 59.7 fL (36.4-46.3); Red Blood Count 3.33 M/uL (4.70-6.10); White Blood Count 4.07 K/ul (4.8-10.8)
[2025-01-18 05:01] LABS: Anion Gap 5.0 (3-11); Blood Urea Nitrogen 23.0 mg/dl (6-23); Calcium 8.2 mg/dl (8.6-10.3); Carbon Dioxide 35.0 mmol/L (21-32); Chloride 99.0 mmol/L (98-107); Creatinine Clr Calc Pharmacy 41.8 ml/min; Glucose 86.0 mg/dl (70-99(Fasting)); Magnesium 1.9 mg/dl (1.7-2.4); Potassium 3.4 mmol/L (3.5-5.1); Sodium 139.0 mmol/L (136-145)
[2025-01-18 06:39] LABS: Appearance Pleural Fluid Clear; Color Pleural Fluid Yellow; Lymphocytes, Fluid 48 %; Mono,Macrophage,Mesothelial 48 %; Neutrophils, Fluid 4 %; RBC Pleural Fluid Auto < 2000 /uL; Source Pleural Fluid Right Lung; WBC Pleural Fluid Auto 40 /uL
[2025-01-18] MEDS: POTASSIUM CHLORIDE / WTR 10 MEQ/100 ML PLCT IV SCH (07:58)
[2025-01-18] MEDS: APIXABAN 5 MG TABLET PO SCH (07:59)
[2025-01-18] MEDS: POTASSIUM CHLORIDE CRTAB 20 MEQ TABCR PO STA (07:59)
[2025-01-18] MEDS: BUMETANIDE 1 MG in SYRINGE 0 ML IV SCH (08:01)
[2025-01-18 10:39] LABS: Thyroid Stimulating Hormone 23.762 uIu/ml (0.300-4.500)
--- NOTE | 2025-01-18 12:30 | Cardiology Progress Note ---
Date of Service January 18, 2025 Assessment & Plan (1) Acute on chronic HFrEF (heart failure with reduced ejection fraction): Plan: -Tolerating dobutamine at 3 mcg/kg/min gtt. -Consider weaning dobutamine tomorrow morning. -Continue IV Bumex. (2) Pleural effusion: Plan: -Thoracentesis revealed a transudate, 1500 cc. (3) Biventricular ICD (implantable cardioverter-defibrillator) in place: Plan: -Per Dr. Barriga. (4) Paroxysmal atrial fibrillation: Plan: -Not recorded on his device currently. -Continue rhythm control and long-term anticoagulation. (5) Cardiomyopathy, ischemic: Plan: -Severe left ventricular dysfunction with ejection fraction of 15 to 20%. -Metoprolol succinate currently on hold due to relative hypotension. -Continue Farxiga and Bumex. (6) CAD S/P percutaneous coronary angioplasty: Plan: -AMI, LAD LATISHA x3, staged distal LAD LATISHA, June 2014. -Continue medical management. Admission and Anticipated Discharge Date Admission Date: January 15, 2025 Subjective The patient is resting comfortably in bed without complaints of chest pain or dyspnea. He does feel stronger while on the dobutamine infusion. Physical Exam Physical Exam: In general this is a well-developed well-nourished white male in no acute distress. HEENT exam is negative. Neck is supple with full carotid upstrokes. There are no carotid bruits. No JVD. No thyromegaly. Cardiovascular exam reveals a regular rhythm with distant heart sounds. No obvious murmurs. No S3. Chest reveals a palpable device in the left subclavicular region. Lungs are clear without rales, rhonchi or wheezes. Abdomen is soft and nontender without bruits. Extremities reveal intact radial artery pulses bilaterally. There is trace pedal edema. Results & Data Vital Signs (Past 12 Hours) Vital Signs Temp Pulse Resp BP Pulse Ox O2 Del Method O2 Flow Rate 01/18/25 12:00 86/61 L 01/18/25 11:56 80 22 94 01/18/25 11:38 82 24 94 01/18/25 11:09 80 18 97 01/18/25 10:39 36.8 C 18 98 Nasal Cannula 2 01/18/25 10:36 80 20 97 01/18/25 10:00 80 21 97 01/18/25 09:30 95/68 L 01/18/25 09:30 95/68 L 01/18/25 09:30 81 20 98 01/18/25 09:21 81 22 97 01/18/25 09:00 93/73 L 01/18/25 08:48 82 22 94 01/18/25 08:39 80 18 97 01/18/25 08:30 83/61 L 01/18/25 08:26 88 19 96 01/18/25 08:00 80 18 96 01/18/25 08:00 82/54 L 01/18/25 08:00 80 01/18/25 08:00 Oxymask, High Flow Nasal Cannula 8 01/18/25 08:00 36.8 C 20 98 Room Air 01/18/25 07:30 81 22 95 01/18/25 07:30 91/66 L 01/18/25 07:03 80 22 94 01/18/25 07:00 88/65 L 01/18/25 06:54 80 17 93 01/18/25 06:39 80 14 95 01/18/25 06:21 80 17 97 01/18/25 06:00 90/62 L 01/18/25 05:45 80 17 98 01/18/25 05:42 80 18 96 01/18/25 05:09 80 17 95 01/18/25 05:00 88/61 L 01/18/25 04:42 80 17 93 01/18/25 04:30 94 H 16 92 01/18/25 04:30 89/59 L 01/18/25 04:15 80 16 97 01/18/25 04:00 99/70 L 01/18/25 03:51 80 19 96 01/18/25 03:30 81 17 97 01/18/25 03:30 95/70 L 01/18/25 03:06 81 19 95 01/18/25 03:00 95/63 L 01/18/25 02:57 88 18 95 01/18/25 02:30 81 18 94 01/18/25 02:09 80 16 94 01/18/25 01:39 80 15 96 01/18/25 01:30 97/66 L 01/18/25 01:00 94/64 L 01/18/25 00:53 80 FiO2 01/18/25 12:00 01/18/25 11:56 01/18/25 11:38 01/18/25 11:09 01/18/25 10:39 01/18/25 10:36 01/18/25 10:00 01/18/25 09:30 01/18/25 09:30 01/18/25 09:30 01/18/25 09:21 01/18/25 09:00 01/18/25 08:48 01/18/25 08:39 01/18/25 08:30 01/18/25 08:26 01/18/25 08:00 01/18/25 08:00 01/18/25 08:00 01/18/25 08:00 30 01/18/25 08:00 01/18/25 07:30 01/18/25 07:30 01/18/25 07:03 01/18/25 07:00 01/18/25 06:54 01/18/25 06:39 01/18/25 06:21 01/18/25 06:00 01/18/25 05:45 01/18/25 05:42 01/18/25 05:09 01/18/25 05:00 01/18/25 04:42 01/18/25 04:30 01/18/25 04:30 01/18/25 04:15 01/18/25 04:00 01/18/25 03:51 01/18/25 03:30 01/18/25 03:30 01/18/25 03:06 01/18/25 03:00 01/18/25 02:57 01/18/25 02:30 01/18/25 02:09 01/18/25 01:39 01/18/25 01:30 01/18/25 01:00 01/18/25 00:53 PG Care Time/CCT Total # of Minutes Spent Total Time Spent with Patient: Total time spent is greater than 50% in coordination of care (as documented) at patient's floor/unit and/or counseling patient: Coding Level of Care Code 61854 SUB INP/OBS CARE 3/50MIN Diagnoses Acute on chronic HFrEF (heart failure with reduced ejection fraction) I50.23 Pleural effusion J90 Biventricular ICD (implantable cardioverter-defibrillator) in place Z95.810 Paroxysmal atrial fibrillation I48.0 Cardiomyopathy, ischemic I25.5 CAD S/P percutaneous coronary angioplasty I25.10; Z98.61
--- NOTE | 2025-01-18 15:07 | Hospitalist Progress Note ---
Date of Service January 18, 2025 Assessment & Plan (1) Acute on chronic HFrEF (heart failure with reduced ejection fraction): (2) Cardiogenic shock: (3) CALEB (acute kidney injury): (4) Hypothyroidism: Plan This patient is an 84yo male with history of CAD s/p LATISHA x 3 to LAD, HFrEF/ICM with EF of 15-20 %, PAF on Eliquis anticoagulation, Hypothyroidism, CLL, pancytopenia, IgG kappa MGUS, and CKD stage III who was admitted with cardiogenic shock/hypotension and volume overload with large left pleural effusion and acute on chronic respiratory failure with hypoxemia. He was transferred to the ICU on 01/16 for dobutamine drip and titration. #Acute on chronic HFrEF/large right sided pleural effusionpresented with volume overload, elevated BNP, CXR with large right-sided pleural effusion and small left-sided pleural effusion. Transferred to ICU for dobutamine drip given hypotension and with good response to IV Bumex. Had thoracentesis completed 01/17 with 1500 mL of transudative fluid removed. Pleural fluid culture remains no growth and cytology negative. He is improving on dobutamine and is net -3.6 L with -3.2 kg change in body weight. He is weaned off supplemental O2 at rest. Blood pressures remain soft but majority of maps greater than 65. Echo here with EF 15-20%, moderate-severe MR and TR, pulm HTN, and mild to moderately reduced RV function. Remains in paced rhythm-cardiology increased paced rate to 80 to help with cardiac output. -Continued ICU stay on dobutamine drip at low doses-plan to wean off by 01/19 -Appreciate cardiology consultation Continue Bumex diuresis IV -Maintain Melendez catheter for now until ensure he is able to get out of bed without hypotension - Continue low-sodium diet, fluid restriction, daily weights, strict I's and O's - Follow BMP, magnesium and keep electrolytes replete-give replacement potassium and magnesium - Follow-up pleural fluid cultures once finalized - Continue Jardiance but holding home Toprol XL due to hypotension - His blood pressures are not able to tolerate Entresto and spironolactone at this time #CALEB on CKD stage III -[employer]CH[employer]ICIAN 1.56 on admission and now improved to 1.2 which is around his baseline. Likely secondary to poor perfusion in setting of acute complicated heart failure Avoid nephrotoxic agents Renal dosing or needed Follow BMP #Elevated LFTs-total bilirubin and AST mildly elevated on admission and improving. Likely secondary to hepatic congestion from right-sided heart failure - Follow LFTs in the morning - Continue treatment of heart failure #KATHRYN/Marlon-Cage breathing/acute on chronic respiratory failure with hypoxemia -has home O2 at night 2 LNC and also uses it as needed with ambulation. - Continue supplemental O2 at bedtime - Will perform two-step walk test prior to discharge #CAD s/p LATISHA x 3 to LAD-no chest pains or evidence of acute ischemia. Troponin only 17 on admission. ECG on admission with AV dual paced rhythm. Continue Plavix, atorvastatin, and Eliquis # PAF on Eliquisremains in a paced rhythm Continue amiodarone 200 mg p.o. daily Continue holding home metoprolol due to low blood pressure Held Eliquis for thoracentesis, and Eliquis resumed on 01/18 #Hypothyroidism-with recent TSH 1 month prior at 64. He was recently started on levothyroxine 50 mcg. Suspect poor oral absorption due to gut wall edema from CHF - Checked TSH again-remains elevated at 23.7 Continue Synthroid at increased dose of 100 mcg daily - Follow TSH in 2-3 weeks #Pancytopenia/CLL/IgG kappa MGUS-previously followed by hematology/oncology and patient declined bone marrow biopsy for further evaluation. Discharged from oncology's care as he did not desire further evaluation or treatment - Follow CBC and would hold Eliquis if platelets less than 50 DVT prophylaxis-Eliquis resumed Disposition-continued stay in ICU, will need PT/OT consults once off dobutamine drip Admission and Anticipated Discharge Date Admission Date: January 15, 2025 Subjective Patient reports feeling much improved. Feels like he can take a deeper breath. He is weaned off oxygen to room air at rest but RN reports he desaturates when he is sleeping. He denies chest pains or nausea. He is eating well. He is making urine and a Melendez catheter remains in place. Telemetry with paced rhythm, rate 80 Review of Systems Review of Systems: All systems reviewed & are unremarkable except as noted in HPI & below Physical Exam Constitutional: WD/WN, vitals as above Neck: trachea midline, no thyromegaly Respiratory: normal respiratory effort; no cough Auscultation: + crackles (Mild at bases); no rhonchi and no wheezes Cardiovascular: Rate/Rhythm: regular rate and regular rhythm Heart Sounds: + murmur (Holosystolic murmur at left lower sternal border) Extremities: + edema (Trace pitting edema legs bilaterally) Chest (Breasts): Chest: normal inspection of chest Gastrointestinal (Abdomen): normal bowel sounds, soft, nontender, no hepatosplenomegaly Musculoskeletal: Extremities: extremities normal to inspection; no cyanosis and no clubbing Skin: no rashes, warm and dry Neurologic: moves all extremities and awake; no focal motor deficits Psychiatric: A+Ox3, euthymic affect Results & Data Results & Data Vital Signs (Past 12 Hours) Vital Signs Temp Pulse Resp BP Pulse Ox O2 Del Method O2 Flow Rate 01/18/25 12:00 86/61 L 01/18/25 11:56 80 22 94 01/18/25 11:38 82 24 94 01/18/25 11:09 80 18 97 01/18/25 10:39 36.8 C 18 98 Nasal Cannula 2 01/18/25 10:36 80 20 97 01/18/25 10:00 80 21 97 01/18/25 09:30 95/68 L 01/18/25 09:30 95/68 L 01/18/25 09:30 81 20 98 01/18/25 09:21 81 22 97 01/18/25 09:00 93/73 L 01/18/25 08:48 82 22 94 01/18/25 08:39 80 18 97 01/18/25 08:30 83/61 L 01/18/25 08:26 88 19 96 01/18/25 08:00 80 18 96 01/18/25 08:00 82/54 L 01/18/25 08:00 80 01/18/25 08:00 Oxymask, High Flow Nasal Cannula 8 01/18/25 08:00 36.8 C 20 98 Room Air 01/18/25 07:30 81 22 95 01/18/25 07:30 91/66 L 01/18/25 07:03 80 22 94 01/18/25 07:00 88/65 L 01/18/25 06:54 80 17 93 01/18/25 06:39 80 14 95 01/18/25 06:21 80 17 97 01/18/25 06:00 90/62 L 07/02/25 05:45 80 17 98 01/18/25 05:42 80 18 96 01/18/25 05:09 80 17 95 01/18/25 05:00 88/61 L 01/18/25 04:42 80 17 93 01/18/25 04:30 94 H 16 92 01/18/25 04:30 89/59 L 01/18/25 04:15 80 16 97 01/18/25 04:00 99/70 L 01/18/25 03:51 80 19 96 01/18/25 03:30 81 17 97 01/18/25 03:30 95/70 L FiO2 01/18/25 12:00 01/18/25 11:56 01/18/25 11:38 01/18/25 11:09 01/18/25 10:39 01/18/25 10:36 01/18/25 10:00 01/18/25 09:30 01/18/25 09:30 01/18/25 09:30 01/18/25 09:21 01/18/25 09:00 01/18/25 08:48 01/18/25 08:39 01/18/25 08:30 01/18/25 08:26 01/18/25 08:00 01/18/25 08:00 01/18/25 08:00 01/18/25 08:00 30 01/18/25 08:00 01/18/25 07:30 01/18/25 07:30 01/18/25 07:03 01/18/25 07:00 01/18/25 06:54 01/18/25 06:39 01/18/25 06:21 01/18/25 06:00 01/18/25 05:45 01/18/25 05:42 01/18/25 05:09 01/18/25 05:00 01/18/25 04:42 01/18/25 04:30 01/18/25 04:30 01/18/25 04:15 01/18/25 04:00 01/18/25 03:51 01/18/25 03:30 01/18/25 03:30 Laboratory Results CBC, BMP, magnesium, pleural fluid culture and cytology, blood cultures all reviewed PG Care Time/CCT Total # of Minutes Spent Total Time Spent with Patient: Total time spent is greater than 50% in coordination of care (as documented) at patient's floor/unit and/or counseling patient: Coding Level of Care Code 69993 SUB INP/OBS CARE 350MIN Diagnoses Acute on chronic HFrEF (heart failure with reduced ejection fraction) I50.23 Cardiogenic shock R57.0 CALEB (acute kidney injury) N17.9 Hypothyroidism E03.9
[2025-01-19 05:09] LABS: Hematocrit (blood only) 32.5 % (42.0-52.0); Hemoglobin 11.2 g/dl (14.0-18.0); Immature Granulocytes # (auto) 0.01 K/uL (0.01-0.20); Immature Granulocytes % (auto) 0.3 %; Mean Corpuscular Hemoglobin 33.7 pg (25.0-34.0); Mean Corpuscular Volume 97.9 fL (80.0-100.0); Platelet Count 70 K/uL (130-400); RDW Standard Deviation 60.0 fL (36.4-46.3); Red Blood Count 3.32 M/uL (4.70-6.10); White Blood Count 3.98 K/ul (4.8-10.8)
[2025-01-19 05:23] LABS: Alanine Aminotransferase 16.0 U/L (7-52); Alkaline Phosphatase 66.0 U/L (34-104); Anion Gap 3.0 (3-11); Bilirubin,Total 1.3 mg/dl (0.2-1.0); Blood Urea Nitrogen 23.0 mg/dl (6-23); Calcium 8.3 mg/dl (8.6-10.3); Carbon Dioxide 35.0 mmol/L (21-32); Chloride 98.0 mmol/L (98-107); Creatinine Clr Calc Pharmacy 50.5 ml/min; Glucose 90.0 mg/dl (70-99(Fasting)); Magnesium 2.0 mg/dl (1.7-2.4); Potassium 3.9 mmol/L (3.5-5.1); Sodium 136.0 mmol/L (136-145); Total Protein 5.7 gm/dl (6.0-8.3)
--- NOTE | 2025-01-19 12:55 | Cardiology Progress Note ---
Date of Service January 19, 2025 Assessment & Plan (1) Acute on chronic HFrEF (heart failure with reduced ejection fraction): Plan: -Would wean dobutamine to off. -Seems euvolemic and well compensated currently. -Stable for hospital discharge. -The patient follows daily weights and sliding scale diuretics at home. -Tomorrow morning's weight will be as no "dry" weight. (2) Pleural effusion: Plan: -Thoracentesis revealed a transudate, 1500 cc. (3) Biventricular ICD (implantable cardioverter-defibrillator) in place: Plan: -Per Dr. Barriga. (4) Paroxysmal atrial fibrillation: Plan: -Not recorded on his device. -Continue rhythm control and long-term anticoagulation. (5) Cardiomyopathy, ischemic: Plan: -Severe left ventricular dysfunction with ejection fraction of 15 to 20%. -Metoprolol succinate currently on hold due to relative hypotension. -Continue Farxiga and Bumex. (6) CAD S/P percutaneous coronary angioplasty: Plan: -AMI, LAD LATISHA x3, staged distal LAD LATISHA, June 2014. -Continue medical management. Admission and Anticipated Discharge Date Admission Date: January 15, 2025 Subjective The patient is resting comfortably in the bedside chair without complaints of chest pain or dyspnea. Claims to feel much stronger. Anxious for hospital discharge. Physical Exam Physical Exam: In general this is a well-developed well-nourished white male in no acute distress. HEENT exam is negative. Neck is supple with full carotid upstrokes. There are no carotid bruits. No JVD. No thyromegaly. Cardiovascular exam reveals a regular rhythm with distant heart sounds. No obvious murmurs. No S3. Chest reveals a palpable device in the left subclavicular region. Lungs are clear without rales, rhonchi or wheezes. Abdomen is soft and nontender without bruits. Extremities reveal intact radial artery pulses bilaterally. There is trace pedal edema. Results & Data Vital Signs (Past 12 Hours) Vital Signs Temp Pulse Resp BP Pulse Ox O2 Del Method O2 Flow Rate 01/19/25 09:36 85/64 L 01/19/25 09:36 85/64 L 01/19/25 09:31 99/71 L 01/19/25 09:30 80 18 99 Nasal Cannula 2 01/19/25 09:29 100/72 01/19/25 09:29 100/72 01/19/25 09:27 80 18 99 01/19/25 09:06 80 18 98 01/19/25 09:00 97/71 L 01/19/25 09:00 97/71 L 01/19/25 09:00 97/71 L 01/19/25 08:57 80 18 100 01/19/25 08:30 97 01/19/25 08:18 Room Air 01/19/25 08:00 37 C 01/19/25 07:33 82 24 97 01/19/25 07:30 103/69 01/19/25 07:30 103/69 01/19/25 07:30 103/69 01/19/25 07:24 82 17 96 01/19/25 07:15 80 23 97 01/19/25 06:39 85 23 98/69 L 97 Nasal Cannula 2 01/19/25 06:00 80 23 85/58 L 99 Nasal Cannula 2 01/19/25 05:30 80 19 83/60 L 99 Nasal Cannula 2 01/19/25 05:06 80 21 98 01/19/25 04:30 80 23 99 01/19/25 04:00 36.3 C L 01/19/25 04:00 80 17 104/74 98 Nasal Cannula 2 01/19/25 03:36 80 18 94/69 L 97 Nasal Cannula 2 01/19/25 03:00 80 16 93/70 L 97 Nasal Cannula 2 01/19/25 02:30 80 20 98/72 L 99 Nasal Cannula 2 01/19/25 02:00 80 17 96/68 L 98 Nasal Cannula 2 01/19/25 01:30 80 18 99/72 L 97 Nasal Cannula 2 01/19/25 01:00 80 16 97/72 L 97 Nasal Cannula 2 PG Care Time/CCT Total # of Minutes Spent Total Time Spent with Patient: Total time spent is greater than 50% in coordination of care (as documented) at patient's floor/unit and/or counseling patient: Coding Level of Care Code 85481 SUB INP/OBS CARE 3/50MIN Diagnoses Acute on chronic HFrEF (heart failure with reduced ejection fraction) I50.23 Pleural effusion J90 Biventricular ICD (implantable cardioverter-defibrillator) in place Z95.810 Paroxysmal atrial fibrillation I48.0 Cardiomyopathy, ischemic I25.5 CAD S/P percutaneous coronary angioplasty I25.10; Z98.61
[2025-01-19 13:53] VITALS: TEMP 98.4
--- NOTE | 2025-01-19 14:51 | Discharge Summary ---
Discharge Summary Date of Service January 19, 2025 Principal Dx & Hospital Course #1 = Principal Diagnosis (1) Acute on chronic HFrEF (heart failure with reduced ejection fraction): (2) Cardiogenic shock: (3) CALEB (acute kidney injury): (4) Hypothyroidism: Plan This patient is an 84yo male with history of CAD s/p LATISHA x 3 to LAD, HFrEF/ICM with EF of 15-20 %, PAF on Eliquis anticoagulation, Hypothyroidism, CLL, pancytopenia, IgG kappa MGUS, and CKD stage III who was admitted with cardiogenic shock/hypotension and volume overload with large left pleural effusion and acute on chronic respiratory failure with hypoxemia. He was t ransferred to the ICU on 01/16 for dobutamine drip and titration. #Acute on chronic HFrEF/large right sided pleural effusionpresented with volume overload, elevated BNP, CXR with large right-sided pleural effusion and small left-sided pleural effusion. Transferred to ICU for dobutamine drip given hypotension and with good response to IV Bumex. Had thoracentesis completed 01/17 with 1500 mL of transudative fluid removed. Pleural fluid culture remains no growth and cytology negative. He is improving on dobutamine and is net -5.2 L. He is weaned off supplemental O2 at rest but continues to require it nocturnally. Blood pressures remain soft but majority of maps greater than 65. Echo here with EF 15-20%, moderate-severe MR and TR, pulm HTN, and mild to moderately reduced RV function. Remains in paced rhythm-cardiology increased paced rate to 80 to help with cardiac output. - Weaned off dobutamine drip and transitioned IV Bumex to Bumex 1 mg p.o. once daily-Home dose was 1 mg every other day -Appreciate cardiology [id number] with CHF clinic as an outpatient - Remain off Toprol-XL for now on discharge - Continue Farxiga Continue Bumex diuresis IV -Melendez catheter removed-he did have some hematuria prior to discharge which resolved at the time of discharge - Continue low-sodium diet, fluid restriction, daily weights at home - Follow BMP, magnesium and keep electrolytes replete as an outpatient - Follow-up pleural fluid cultures once finalized-no growth to date - His blood pressures are not able to tolerate Entresto and spironolactone at this time #CALEB on CKD stage III -SHOVEL ENGINEER 1.56 on admission and now improved to 1.04 which is around/better than his baseline. Likely secondary to poor perfusion in setting of acute complicated heart failure Avoid nephrotoxic agents Renal dosing or needed Follow BMP as an outpatient #Elevated LFTs-total bilirubin and AST mildly elevated on admission and improving. Likely secondary to hepatic congestion from right-sided heart failure - Follow LFTs as an outpatient - Continue treatment of heart failure #KATHRYN/Marlon-Cage breathing/acute on chronic respiratory failure with hypoxemia -has home O2 at night 2 LNC and also uses it as needed with ambulation. - Continue supplemental O2 at bedtime -Two-step walk test performed prior to discharge #CAD s/p LATISHA x 3 to LAD-no chest pains or evidence of acute ischemia. Troponin only 17 on admission. ECG on admission with AV dual paced rhythm. Continue Plavix, atorvastatin, and Eliquis # PAF on Eliquisremains in a paced rhythm Continue amiodarone 200 mg p.o. daily Continue holding home metoprolol due to low blood pressure Held Eliquis for thoracentesis, and Eliquis resumed on 01/18 #Hypothyroidism-with recent TSH 1 month prior at 64. He was recently started on levothyroxine 50 mcg. Suspect poor oral absorption due to gut wall edema from CHF - Checked TSH again-remains elevated at 23.7 Continue Synthroid at increased dose of 75 mcg daily on discharge - Follow TSH in 2-3 weeks #Pancytopenia/CLL/IgG kappa MGUS-previously followed by hematology/oncology and patient declined bone marrow biopsy for further evaluation. Discharged from oncology's care as he did not desire further evaluation or treatment at that time. He reports that he would be agreeable to a bone marrow biopsy only if his blood counts deteriorated from where they are now - Follow CBC and would hold Eliquis if platelets less than 50 DVT prophylaxis-Eliquis Disposition-stable for discharge to home Notes For Next Care Provider Medication Changes From Visit Hold metoprolol Increased levothyroxine to 75 mcg daily Admission HPI Per Admitting Provider Bi Mendez is an 84yo male with history of CAD with ICM, PAF on Eliquis anticoagulation (Last dose 01/14/25 at 19:00), HFrEF due to ischemic cardiomyopathy (EF=20-25% with global hypokinesis on echo 08/30/2024) presenting with hypotension over the last two days. Patient reports that his baseline blood pressure is typically 90/60's. This morning his blood pressure was measured to be 75/63. He reports feeling "tired as blue blazes!". His blood pressure was low again this evening at 75/62 which prompted him to come to the ER. He has had stable shortness of breath for the last two weeks. Also with some chest tightness and congestion. Patient takes Bumex 1mg po daily with instruction to take an extra tablet if he gains 3 or more pounds. He weighs himself daily and reports typically weighs 140-143 pounds. There was one day last week that he took the extra dose (01/08) which did result in increased urination. Otherwise he has been continuing his one tablet daily. He is compliant with his medications and salt limitation. Does weigh 148# today on ER scale. No additional complaints - patient denies chest pain, palpitations, nausea, vomiting, diarrhea, abdominal pain or fullness. In the ER patient's blood pressure low 80's/60's. He was given a small amount of fluid with no significant changes in BP. ER Course: NSS x 1000mL Zosyn 4.5gm Vancomycin Discharge Exam Constitutional WD/WN, vitals as above Neck trachea midline, no thyromegaly Respiratory normal respiratory effort; no cough Auscultation: lungs clear to auscultation bilaterally Cardiovascular Rate/Rhythm: regular rate and regular rhythm Heart Sounds: + murmur (Holosystolic murmur at left lower sternal border) Extremities: + edema (Trace pitting edema legs bilaterally) Chest (Breasts) Chest: normal inspection of chest Gastrointestinal (Abdomen) normal bowel sounds, soft, nontender, no hepatosplenomegaly Musculoskeletal Extremities: extremities normal to inspection; no cyanosis and no clubbing Skin no rashes, warm and dry Neurologic moves all extremities and awake; no focal motor deficits Psychiatric A+Ox3, euthymic affect Discharge Plan Discharge Items Patient Disposition: Home - Home Health Services Reason For Visit: HYPOTENSION Discharge Diagnosis: Cardiogenic shock Acute on chronic heart failure with reduced ejection fraction Pleural effusion Condition on Discharge: Fair Activity: As commented below Lifting: Gradually increase as tolerated Bathing: No limitations Exercise/Sports: Gradually increase as tolerated Non-emergency contact: Primary Care Provider and Machine Operator Slitter Technician Call non-emergency contact if: you have any medication questions and your symptoms worsen Follow-up/Referrals: Mihai Tello DO [Primary Care Provider] - (Follow-up within 1 to 2 weeks) Beryl Lehman PA-C [Physician Systems Protection Technician] - (Ms. Lehman's office will contact you with your appointment date and time within 1 week.) Diet: Low Sodium (2gm) Fluids: 1500ml (6 cups) Addtl Attending Provider Instructions: You were admitted with low blood pressure from cardiogenic shock from severe congestive heart failure. You had a large amount of fluid around your lung which was drained. You have had significant improvement. Please continue on your bumetanide water pill. Otherwise, your metoprolol will be on hold because your blood pressures are too low at this time to continue taking it. Follow-up with Ms. Lehman of the CHF clinic as scheduled. Your thyroid function was very low and your levothyroxine dose was increased to 75 mcg. Please have your primary care physician follow-up on your thyroid levels in a month. Call your Primary Care doctor if any of the following symptoms or problems start or get worse: * Shortness of breath or difficulty breathing * Wake up at night short of breath * Chest pain * Cough * Swelling of your hands, feet, or legs * More fatigued or tired with your normal activity * Palpitations - sudden fast heart beats WEIGHT * Weigh yourself every morning after using the bathroom. * Use the same scale. * Wear the same amount of clothing. * Write your weight down on a chart. * Call your Primary Care doctor if you gain more than 2-3 pounds in 1-2 days. MEDICATIONS * Use this discharge instruction sheet for medication instructions. * Take your medications at the time your doctor ordered. * Do not skip a dose of your medicines. * If you miss a dose of medicine, take it as soon as possible, but DO NOT DOUBLE A DOSE. * Read your medicine information when you get home. * Know all of the side effects of your medicine. If in doubt, ask your pharmacist * Call your Primary Care doctor's office if you have any side effects. * Be sure all of your doctors know what medicine and herbs you take (including cold, flu, and herbal medicine). Take the following with you to your follow-up doctor appointments: * Weight Chart * Medication List * List of questions Do not drink excessive alcohol, beer or wine. Pending Studies at Discharge: No Stand-Alone Forms: [facility] Accipiter Radar, Smoking Cessation Medications and DC Order Prescriptions: New levothyroxine 75 mcg capsule 75 mcg PO DAILY Qty: 30 0RF Rx Instructions: Take in the morning on an empty stomach 30 minutes prior to your other pills or food Continued Eliquis 5 mg tablet 5 mg PO Q12H Qty: 180 3RF ferrous sulfate 325 mg (65 mg iron) tablet 325 mg PO DAILY Qty: 90 3RF clopidogrel 75 mg tablet 75 mg PO QAM Qty: 90 3RF atorvastatin 40 mg tablet 40 mg PO QPM Qty: 90 3RF amiodarone 200 mg tablet 200 mg PO DAILY Qty: 90 3RF nitroglycerin 0.4 mg tablet, sublingual 0.4 mg sublingual Q5M PRN (Reason: Chest Pain) Rx Instructions: do not exceed 3 doses per episode dapagliflozin propanediol [Farxiga] 10 mg tablet 10 mg PO DAILY Qty: 90 3RF pantoprazole 40 mg tablet,delayed release (DR/EC) 40 mg PO DAILY Qty: 90 3RF tamsulosin 0.4 mg capsule 0.4 mg PO HS Qty: 90 3RF (DME) Oxygen Home Liters Per Minute See Rx Instructions .Route Qty: 1 0RF Rx Instructions: As directed, Use 2L HS biotin 5 mg tablet 5 mg PO DAILY Changed potassium chloride 20 mEq tablet extended release 20 meq PO DAILY Qty: 90 3RF Rx Instructions: per patient he only takes if he takes bumetanide bumetanide 1 mg tablet 1 mg PO DAILY Qty: 120 3RF Rx Instructions: May increase to daily as needed for weight gain, swelling, SOB Held metoprolol succinate 25 mg tablet extended release 24 hr 25 mg PO DAILY Qty: 90 3RF Hold Instructions: Resume on 02/19/25. Hold until advised to restart this by your doctor Discontinued levothyroxine 50 mcg tablet 50 mcg PO DAILY Qty: 90 3RF Discharge Orders: Discharge Order- CHF (Routine); Ordered 01/19/25 Ordered By: Soledad Murrell Admission Data Admit Date/Time: 01/15/25 00:34 Attending Provider: Soledad Murrell Admit Provider: Mercy Wilkinson Primary Care Provider: Mihai Tello Other Providers: Mercy Wilkinson; Zhou Barriga; Michael Dooley; Abiodun Olivares; Car Ovalle; Alf Sharp; Han Noel; Bonnie Enamorado; Santana Rodas; [facility]; [place] Stay Data Consultations 01/14/25 23:12 ED Decision to Admit Stat 01/15/25 03:18 Consult Cardiology Routine 01/16/25 22:54 Consult Printed Circuit Boards Solder Leveler Routine Echocardiogram Diagnostic Imagining Performed 01/17/25 IR thoracentesis wo tube US Routine Pending Results Patient Have Any Pending Studies at Discharge: No Discharge Instructions Given to Patient (Per Discharging Provider) You were admitted with low blood pressure from cardiogenic shock from severe congestive heart failure. You had a large amount of fluid around your lung which was drained. You have had significant improvement. Please continue on your bumetanide water pill. Otherwise, your metoprolol will be on hold because your blood pressures are too low at this time to continue taking it. Follow-up with Ms. Lehman of the CHF clinic as scheduled. Your thyroid function was very low and your levothyroxine dose was increased to 75 mcg. Please have your primary care physician follow-up on your thyroid levels in a month. Call your Primary Care doctor if any of the following symptoms or problems start or get worse: * Shortness of breath or difficulty breathing * Wake up at night short of breath * Chest pain * Cough * Swelling of your hands, feet, or legs * More fatigued or tired with your normal activity * Palpitations - sudden fast heart beats WEIGHT * Weigh yourself every morning after using the bathroom. * Use the same scale. * Wear the same amount of clothing. * Write your weight down on a chart. * Call your Primary Care doctor if you gain more than 2-3 pounds in 1-2 days. MEDICATIONS * Use this discharge instruction sheet for medication instructions. * Take your medications at the time your doctor ordered. * Do not skip a dose of your medicines. * If you miss a dose of medicine, take it as soon as possible, but DO NOT DOUBLE A DOSE. * Read your medicine information when you get home. * Know all of the side effects of your medicine. If in doubt, ask your pharmacist * Call your Primary Care doctor's office if you have any side effects. * Be sure all of your doctors know what medicine and herbs you take (including cold, flu, and herbal medicine). Take the following with you to your follow-up doctor appointments: * Weight Chart * Medication List * List of questions Do not drink excessive alcohol, beer or wine. Total Time Total Time Spent Total Time Spent (In Minutes): 35 minutes Total Time Includes: Examination of the Patient, Discharge Planning, Medication Reconciliation and Communication With Other Providers (Cardiology) Coding Level of Care Code 34830 INP/OBS DISCH >30 MIN Diagnoses Acute on chronic HFrEF (heart failure with reduced ejection fraction) I50.23 Cardiogenic shock R57.0 CALEB (acute kidney injury) N17.9 Hypothyroidism E03.9
[2025-01-19 16:55] VITALS: BP 99/72; PULSE 80; RESP 19; O2SAT 93
[2025-01-20] MEDS ORDERED: BUMETANIDE 1 MG TAB PO SCH (09:00)
== END 2025-01-19 17:35 | disposition home health service (06) | DRG 291 ==
LOC: ED 21:45 → SUATTDRO 01-15 00:34 → 2S 01-15 00:34 → 1E 01-16 14:37